=== PATIENT | female | born 1985 | race Caucasian/White ===

== ENCOUNTER 2024-03-01 17:27 | Observation (INO) | payer OTHER ==
[2024-03-01] MEDS ORDERED: HEPARIN SODIUM 1,000 UN/ML (10ML VL) IV PRN (17:51)
--- NOTE | 2024-03-01 17:57 | ED ---
General Adult HPI - General Chief complaint: Chest Pain Stated complaint: chest pain Time Seen by Provider: 03/01/24 17:30 Source: patient, EMS Mode of arrival: EMS Limitations: no limitations - History of Present Illness Initial comments: Dictation was produced using [employer] dictation software. please excuse any grammatical, word or spelling errors. Chief Complaint: 38-year-old incarcerated female presents to the [facility] part for chest pressure History of Present Illness: Patient 38-year-old female no significant comorbidities presents to the emergency department 2 to 3 days of chest pressure. She is incarcerated was brought to the emergency department by . Patient states she has what she describes as a strangulated chest sensation. She states that symptoms radiate down both arms. She does complain of diaphoresis and nausea. Patient does report family history of heart conditions in her grandma. The ROS documented in this emergency department record has been reviewed and confirmed by me. Those systems with pertinent positive or negative responses have been documented in the HPI. All other systems are other negative and/or noncontributory. - Related Data Home Medications Medication Instructions Recorded Confirmed Albuterol Nebulized [Ventolin 2.5 mg INHALATION RT-BID PRN 03/01/24 03/01/24 Nebulized] hydroCHLOROthiazide [Hydrodiuril] 25 mg PO DAILY 03/01/24 03/01/24 lisinopriL [Zestril] 10 mg PO DAILY 03/01/24 03/01/24 Allergies Allergy/AdvReac Type Severity Reaction Status Date / Time pregabalin [From Lyrica] AdvReac CHEST Verified 03/01/24 18:06 TIGHTENING EXCEDRIN AdvReac CHEST Uncoded 03/01/24 18:06 TIGHTENING Review of Systems ROS Statement: Those systems with pertinent positive or pertinent negative responses have been documented in the HPI. ROS Other: All systems not noted in ROS Statement are negative. General Exam - General Exam Comments Initial Comments: PHYSICAL EXAM: General Impression: Alert and oriented x3, distress secondary to chest pressure HEENT: Normocephalic atraumatic, extra-ocular movements intact, pupils equal and reactive to light bilaterally, mucous membranes moist. Cardiovascular: Heart regular rate and rhythm Chest: Able to complete full sentences, no retractions, no tachypnea Abdomen: abdomen soft, non-tender, non-distended, no organomegaly Musculoskeletal: Pulses present and equal in all extremities, no peripheral edema Motor: no focal deficits noted Neurological: CN II-XII grossly intact, no focal motor or sensory deficits noted Skin: Intact with no visualized rashes Psych: Normal affect and mood Limitations: no limitations Course Vital Signs 03/01/24 03/01/24 03/01/24 17:29 18:40 19:00 Temperature 98.7 F Pulse Rate 95 88 94 Respiratory 16 16 17 Rate Blood Pressure 137/94 166/110 158/108 O2 Sat by Pulse 96 98 96 Oximetry 03/01/24 19:30 Temperature Pulse Rate 94 Respiratory 15 Rate Blood Pressure 144/95 O2 Sat by Pulse 95 Oximetry - Reevaluation(s) Reevaluation #1: 03/01/24 17:57 My EKG interpretation: Ventricular rate 102, sinus tachycardia,. 130, cures 1 1, QTc 402. No OK prolongation, no QTC prolongation. ST depressions diffusely and high lateral leads, inferior leads and lateral precordial leads. There is to be subtle ST elevations in anterior precordial leads. Overall this EKG is nonspecific but highly suspicious for ischemia. Not obvious for ST segment elevation IA. Case discussed with Dr. Milian at 5:55 PM. He wanted to evaluate the EKG prior to any further recommendations. Reevaluation #2: 03/01/24 18:00 Received a call from Dr. Milian at 5:59 PM. He did review the EKG. He was able to compare today's EKG with EKG done from [facility] showing no dynamic changes. At this point did not recommend Blade Aligner activation. Recommended laboratory evaluation medical management Medical Decision Making - Medical Decision Making Was pt. sent in by a medical professional or institution (, PA, BRIM BUSTER, urgent care, hospital, or fci...) When possible be specific @ -No Did you speak to anyone other than the patient for history (EMS, parent, family, police, friend...)? What history was obtained from this source @ -No Did you review nursing and triage notes (agree or disagree)? Why? @ -I reviewed and agree with nursing and triage notes Were old charts reviewed (outside hosp., previous admission, EMS record, old EKG, old radiological studies, urgent care reports/EKG's, fci records)? Report findings @ -No old charts were reviewed Differential Diagnosis (chest pain, altered mental status, abdominal pain women, abdominal pain men, vaginal bleeding, musculoskeletal, weakness, fever, dyspnea, syncope, headache, dizziness, GI bleed, back pain, seizure, CVA, palpatations, mental health)? @ -Differential Chest Pain: Stable Angina, Unstable Angina, STEMI, NSTEMI Aortic Dissection, Pneumothorax, Musculoskeletal, Esophageal Spasm GERD, Cholecystitis, Pancreatitis, Zoster, this is not meant to be an all-inclusive list. EKG interpreted by me (3pts min.). @ -See above X-rays interpreted by me (1pt min.). @ -X-ray shows no acute processes CT interpreted by me (1pt min.). @ -None done U/S interpreted by me (1pt. min.). @ -None done What testing was considered but not performed or refused? (CT, X-rays, U/S, labs)? Why? @ -None What meds were considered but not given or refused? Why? @ -None Was smoking cessation discussed for >3mins.? @ -No Were there social determinants of health that impacted care today? How? (Homelessness, low income, unemployed, alcoholism, drug addiction, transportation, low edu. Level, literacy, decrease access to med. care, [facility], rehab)? @ -No Was there de-escalation of care discussed even if they declined (Discuss DNR or withdrawal of care, Hospice)? DNR status @ -No What co-morbidities impacted this encounter? (DM, HTN, Smoking, COPD, CAD, Cancer, CVA, ARF, Chemo, Hep., AIDS, mental health diagnosis, sleep apnea, morbid obesity)? @ -None Was patient admitted / discharged? Hospital course, mention meds given and route, prescriptions, significant lab abnormalities, going to OR and other pertinent info. @ -38-year-old female with symptoms of acute coronary syndrome. Vital signs upon arrival are within acceptable limits. EKG initially was concerning for ischemia however EKG was sent to cardiology for evaluation they did have a comparison EKG which showed no changes. Laboratory evaluation obtained. Troponin is negative. Patient will be admitted observation with cardiology consultation cardiac monitoring. Did you discuss the management of the patient with other professionals (professionals i.e. , PA, BRIM BUSTER, lab, RT, psych nurse, social services specialist, disposal worker, teacher, communications officer, family service caseworker)? Give summary @ -See above. also discussed with hospitalist for admission Was critical care preformed (if so, how long)? @ -No Undiagnosed new problem with uncertain prognosis? @ -No Drug Therapy requiring intensive monitoring for toxicity (Heparin, Nitro, Insulin, Cardizem)? @ -No Were any procedures done? @ -No Diagnosis/symptom? Acute, or Chronic, or Acute on Chronic? Uncomplicated (wi thout systemic symptoms) or Complicated (systemic symptoms)? @ -Acute coronary syndrome Side effects of treatment? @ -No Exacerbation, Progression, or Severe Exacerbation? @ -No Poses a threat to life or bodily function? How? (Chest pain, USA, IA, pneumonia, PE, COPD, DKA, ARF, appy, cholecystitis, CVA, Diverticulitis, Homicidal, Suicidal, threat to staff... and all critical care pts) @ -yes - Lab Data Result diagrams: 03/01/24 17:56 03/01/24 17:56 Lab Results 03/01/24 03/01/24 03/01/24 Range/Units 17:56 17:56 17:56 WBC 7.0 (3.8-10.6) k/uL RBC 5.34 (3.80-5.40) m/uL Hgb 16.4 H (11.4-16.0) gm/dL Hct 49.5 H (34.0-46.0) % MCV 92.7 (80.0-100.0) fL MCH 30.7 (25.0-35.0) pg MCHC 33.1 (31.0-37.0) g/dL RDW 12.0 (11.5-15.5) % Plt Count 256 (150-450) k/uL MPV 9.1 Neutrophils % 51 % Lymphocytes % 39 % Monocytes % 6 % Eosinophils % 2 % Basophils % 0 % Neutrophils # 3.6 (1.3-7.7) k/uL Lymphocytes # 2.8 (1.0-4.8) k/uL Monocytes # 0.4 (0-1.0) k/uL Eosinophils # 0.1 (0-0.7) k/uL Basophils # 0.0 (0-0.2) k/uL PT 10.6 (10.0-12.5) sec INR 1.0 (<1.2) APTT 23.7 (22.0-30.0) sec D-Dimer 0.22 (<0.60) mg/L FEU Sodium 138 (137-145) mmol/L Potassium 4.1 (3.5-5.1) mmol/L Chloride 105 (98-107) mmol/L Carbon Dioxide 24 (22-30) mmol/L Anion Gap 9 mmol/L BUN 18 H (7-17) mg/dL Creatinine 0.66 (0.52-1.04) mg/dL Est GFR (CKD-EPI)AfAm >90 (>60 ml/min/1.73 sqM) Est GFR (CKD-EPI)NonAf >90 (>60 ml/min/1.73 sqM) Glucose 96 (74-99) mg/dL Calcium 9.4 (8.4-10.2) mg/dL Magnesium 1.9 (1.6-2.3) mg/dL Total Bilirubin 0.6 (0.2-1.3) mg/dL AST 26 (14-36) U/L ALT 33 (4-34) U/L Alkaline Phosphatase 74 (38-126) U/L Troponin I (0.000-0.034) ng/mL Total Protein 7.6 (6.3-8.2) g/dL Albumin 4.7 (3.5-5.0) g/dL 03/01/24 Range/Units 17:56 WBC (3.8-10.6) k/uL RBC (3.80-5.40) m/uL Hgb (11.4-16.0) gm/dL Hct (34.0-46.0) % MCV (80.0-100.0) fL MCH (25.0-35.0) pg MCHC (31.0-37.0) g/dL RDW (11.5-15.5) % Plt Count (150-450) k/uL MPV Neutrophils % % Lymphocytes % % Monocytes % % Eosinophils % % Basophils % % Neutrophils # (1.3-7.7) k/uL Lymphocytes # (1.0-4.8) k/uL Monocytes # (0-1.0) k/uL Eosinophils # (0-0.7) k/uL Basophils # (0-0.2) k/uL PT (10.0-12.5) sec INR (<1.2) APTT (22.0-30.0) sec D-Dimer (<0.60) mg/L FEU Sodium (137-145) mmol/L Potassium (3.5-5.1) mmol/L Chloride (98-107) mmol/L Carbon Dioxide (22-30) mmol/L Anion Gap mmol/L BUN (7-17) mg/dL Creatinine (0.52-1.04) mg/dL Est GFR (CKD-EPI)AfAm (>60 ml/min/1.73 sqM) Est GFR (CKD-EPI)NonAf (>60 ml/min/1.73 sqM) Glucose (74-99) mg/dL Calcium (8.4-10.2) mg/dL Magnesium (1.6-2.3) mg/dL Total Bilirubin (0.2-1.3) mg/dL AST (14-36) U/L ALT (4-34) U/L Alkaline Phosphatase (38-126) U/L Troponin I <0.012 (0.000-0.034) ng/mL Total Protein (6.3-8.2) g/dL Albumin (3.5-5.0) g/dL Disposition Clinical Impression: ACS (acute coronary syndrome) Disposition: ADMITTED IP TO THIS [facility] Condition: Fair Referrals: None,Stated [REFERRING] - 1-2 days Decision Time: 20:26
[2024-03-01 18:15] LABS: Basophils % (A) 0 %; Eosinophils # (A) 0.1 k/uL (0-0.7); Eosinophils % (A) 2 %; HCT 49.5 % (34.0-46.0); HGB 16.4 gm/dL (11.4-16.0); Lymphocytes # (A) 2.8 k/uL (1.0-4.8); Lymphocytes % (A) 39 %; MCH 30.7 pg (25.0-35.0); MCHC 33.1 g/dL (31.0-37.0); MCV 92.7 fL (80.0-100.0); Mean Platelet Volume 9.1; Monocytes # (A) 0.4 k/uL (0-1.0); Monocytes % (A) 6 %; Neutrophils # (A) 3.6 k/uL (1.3-7.7); Neutrophils % (A) 51 %; Platelet Count 256 k/uL (150-450); RBC 5.34 m/uL (3.80-5.40)
[2024-03-01 18:30] LABS: ALT 33 U/L (4-34); AST 26 U/L (14-36); African American GFR (CKD) >90 (>60 ml/min/1.73 sqM); Albumin 4.7 g/dL (3.5-5.0); Alkaline Phosphatase 74 U/L (38-126); Anion Gap 9 mmol/L; Blood Urea Nitrogen 18 mg/dL (7-17); Calcium 9.4 mg/dL (8.4-10.2); Carbon Dioxide 24 mmol/L (22-30); Chloride 105 mmol/L (98-107); Glucose 96 mg/dL (74-99); Magnesium 1.9 mg/dL (1.6-2.3); Non-African American GFR(CKD) >90 (>60 ml/min/1.73 sqM); Potassium 4.1 mmol/L (3.5-5.1); Sodium 138 mmol/L (137-145); Total Bilirubin 0.6 mg/dL (0.2-1.3); Total Protein 7.6 g/dL (6.3-8.2)
--- NOTE | 2024-03-01 18:54 | XR ---
EXAMINATION TYPE: XR chest 2V DATE OF EXAM: 03/01/2024 6:42 PM COMPARISON: Chest radiographs from 11/05/2019 CLINICAL INDICATION: Female, 38 years old with history of Chest Pain; TECHNIQUE: XR chest 2V Frontal and lateral views of the chest. FINDINGS: Lungs/Pleura: There is no evidence of pleural effusion, focal consolidation, or pneumothorax. Pulmonary vascularity: Unremarkable. Heart/mediastinum: Cardiomediastinal silhouette is unremarkable. Musculoskeletal: No acute osseous pathology. Midline sternotomy wires are noted. IMPRESSION: No acute cardiopulmonary disease/process. [facility], , 03/01/2024 6:52 PM
[2024-03-01] MEDS: NITROGLYCERIN OINT 1 INCH/GM PACKET TOPICAL STA (18:56)
[2024-03-01 19:03] LABS: Partial Thromboplastin Time 23.7 sec (22.0-30.0); Prothrombin Time 10.6 sec (10.0-12.5)
[2024-03-01] MEDS: HEPARIN SODIUM 1,000 UN/ML (10ML VL) IV ONE (19:08)
[2024-03-01] MEDS: HEPARIN SOD,PORK IN 0.45% NACL 25,000 UNIT in 0.45% NACL 1 250ML.BAG IV SCH (19:08)
[2024-03-01] MEDS ORDERED: NITROGLYCERIN SL TABS 0.4 MG TAB SUBLINGUAL PRN (20:24)
[2024-03-02] MEDS: ONDANSETRON 4 MG/2 ML VIAL IVP PRN (09:11)
[2024-03-02] MEDS: ASPIRIN 325 MG TAB PO SCH (09:12)
[2024-03-02] MEDS ORDERED: ONDANSETRON 4 MG/2 ML VIAL IVP PRN (09:16)
[2024-03-02] MEDS ORDERED: ALBUTEROL NEBULIZED 2.5 MG/3 ML INHALATION PRN (09:19)
--- NOTE | 2024-03-02 10:07 | P.CRDCN ---
History of Present Illness Consult date: 03/02/24 Consult reason: chest pain History of present illness: This is a 38-year-old female with no previous cardiac history. 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 We have been asked to evaluate the patient for chest pain. Patient is here as an inmate from the [facility] with Sheriff crockett at the bedside. Patient complains of low rib pain bilaterally that has been going on for a few months on and off. She feels that stress makes it worse. She does not think it is related to activity. She does not think it feels like a muscle strain. She does sometimes have some difficulty in breathing. She sometimes has lightheadedness. She has noted to have tenderness to the epigastric and right upper quadrant areas as well as lower rib areas. Patient has been started on a heparin drip. - EKG: Sinus rhythm with LVH, nonspecific ST changes - Chest x-ray: No acute process - Laboratory studies: WBC 7, hemoglobin 16.4. D-dimer 0.22. Troponin negative x 4. Electrolytes normal. BUN 18 creatinine 0.66. Magnesium 1.9. - Home cardiac medications: Lisinopril 10 mg daily, hydrochlorothiazide 25 mg daily Review Of Systems: At the time of my exam: CONSTITUTIONAL: Denies fever or chills. HEENT: Denies blurred vision, vision changes, or eye pain. Denies hemoptysis CARDIOVASCULAR: Denies chest pain. Denies orthopnea. Denies PND. Denies palpitations RESPIRATORY: Denies shortness of breath. GASTROINTESTINAL: Reports abdominal pain. Denies nausea or vomiting. HEMATOLOGIC: Denies bleeding disorders. GENITOURINARY: Denies any blood in urine. SKIN: Denies puritis. Denies rash. Physical examination: Gen: This is a 38-year-old female in no acute distress. VS: reviewed HEENT: Head is atraumatic, normocephalic. Pupils equal, round. Sclerae is anicteric. NECK: Supple. No JVD. LUNGS: Clear to auscultation. No wheezes or rhonchi. No intercostal retraction s. HEART: Regular rate and rhythm. No murmur. ABDOMEN: Right upper quadrant and epigastric tenderness. Soft. EXTREMITIES: No pedal edema. No calf tenderness. NEUROLOGICAL: Patient is awake, alert and oriented x3. 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 Discontinue heparin drip Obtain 2-D echocardiogram and Doppler study to assess cardiac structure and function Smoking cessation. Patient will be provided the [employer] quit line information at discharge. Advised attending to evaluate abdominal pain and if this workup is negative, may consider stress test Thank you kindly for this consultation. Nurse practitioner note has been reviewed, I agree with documented findings and plan of care. Patient was seen and examined. 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 Unsure if she has a leaky valve. History of Any Multi-Drug Resistant Organisms: None Reported Past Surgical History: Appendectomy, Section, Cholecystectomy Additional Past Surgical History / Comment(s): CABG, Left knee surgeries, endometrosis surgery Past Anesthesia/Blood Transfusion Reactions: No Reported Reaction Smoking Status: Current every day smoker - Past Family History Mother Additional Family Medical History / Comment(s): Grandmother had a pacemaker Father Family Medical History: Cancer Additional Family Medical History / Comment(s): colon cancer, Breast cancer runs on his side of the family. Medications and Allergies Home Medications Medication Instructions Recorded Confirmed Type Albuterol Nebulized [Ventolin 2.5 mg INHALATION RT-BID PRN 03/01/24 03/01/24 History Nebulized] hydroCHLOROthiazide [Hydrodiuril] 25 mg PO DAILY 03/01/24 03/01/24 History lisinopriL [Zestril] 10 mg PO DAILY 03/01/24 03/01/24 History Allergies Allergy/AdvReac Type Severity Reaction Status Date / Time pregabalin [From Lyrica] AdvReac CHEST Verified 03/01/24 18:06 TIGHTENING EXCEDRIN AdvReac CHEST Uncoded 03/01/24 18:06 TIGHTENING Physical Exam Vitals: Vital Signs Temp Pulse Pulse Resp BP BP Pulse Ox 03/02/24 02:00 98.2 F 95 18 121/81 98 03/02/24 01:52 79 18 03/01/24 23:02 98.2 F 79 18 143/87 99 03/01/24 22:46 98.3 F 96 16 120/91 96 03/01/24 21:00 82 18 126/88 95 03/01/24 20:30 87 18 138/73 95 03/01/24 19:30 94 15 144/95 95 03/01/24 19:00 94 17 158/108 96 03/01/24 18:40 88 16 166/110 98 03/01/24 17:29 98.7 F 95 16 137/94 96 Intake and Output 03/01/24 03/02/24 03/02/24 22:59 06:59 14:59 Intake Total 48.296 Balance 48.296 Intake: Intake, IV Titration 48.296 Amount Heparin Sod,Pork in 0.45% 48.296 NaCl 25,000 unit In 0.45 % NaCl 1 250ml.bag @ 12 UNITS/KG/HR 7.566 mls/hr IV .Q24H [facility] Rx#: [id number] Other: # Voids 1 2 Weight 63.049 kg Results 03/01/24 17:56 03/01/24 17:56 Cardiac Enzymes 03/01/24 03/01/24 03/01/24 Range/Units 17:56 17:56 20:45 AST 26 (14-36) U/L Troponin I <0.012 <0.012 (0.000-0.034) ng/mL 03/02/24 Range/Units 00:56 AST (14-36) U/L Troponin I <0.012 (0.000-0.034) ng/mL Coagulation 03/01/24 03/02/24 Range/Units 17:56 00:56 PT 10.6 (10.0-12.5) sec APTT 23.7 45.8 H (22.0-30.0) sec CBC 03/01/24 Range/Units 17:56 WBC 7.0 (3.8-10.6) k/uL RBC 5.34 (3.80-5.40) m/uL Hgb 16.4 H (11.4-16.0) gm/dL Hct 49.5 H (34.0-46.0) % Plt Count 256 (150-450) k/uL Comprehensive Metabolic Panel 03/01/24 Range/Units 17:56 Sodium 138 (137-145) mmol/L Potassium 4.1 (3.5-5.1) mmol/L Chloride 105 (98-107) mmol/L Carbon Dioxide 24 (22-30) mmol/L BUN 18 H (7-17) mg/dL Creatinine 0.66 (0.52-1.04) mg/dL Glucose 96 (74-99) mg/dL Calcium 9.4 (8.4-10.2) mg/dL AST 26 (14-36) U/L ALT 33 (4-34) U/L Alkaline Phosphatase 74 (38-126) U/L Total Protein 7.6 (6.3-8.2) g/dL Albumin 4.7 (3.5-5.0) g/dL Current Medications Generic Name Dose Route Start Last Admin Trade Name Freq PRN Reason Stop Dose Admin Aspirin 325 mg 03/02/24 09:00 Aspirin 325 Mg Tab PO DAILY [facility] Heparin Sodium (Porcine) 0 unit 03/01/24 17:51 Heparin Sodium 1,000 Un/Ml (10ml Vl) IV PER PROTOCOL PRN Low PTT Protocol Heparin Sodium/Sodium Chloride 250 mls @ 7.566 mls/hr 03/01/24 18:00 03/02/24 01:31 25,000 unit/ Sodium Chloride IV 12 units/kg/hr .Q24H [facility] 7.566 mls/hr Titration Protocol 12 UNITS/KG/HR Nitroglycerin 0.4 mg 03/01/24 20:24 Nitroglycerin Sl Tabs 0.4 Mg Tab SUBLINGUAL Q5M PRN Chest Pain Intake and Output 03/01/24 03/02/24 03/02/24 22:59 06:59 14:59 Intake Total 48.296 Balance 48.296 Intake: Intake, IV Titration 48.296 Amount Heparin Sod,Pork in 0.45% 48.296 NaCl 25,000 unit In 0.45 % NaCl 1 250ml.bag @ 12 UNITS/KG/HR 7.566 mls/hr IV .Q24H [facility] Rx#: [id number] Other: # Voids 1 2 Weight 63.049 kg 03/01/24 17:56 03/01/24 17:56
[2024-03-02] MEDS: lisinopriL 10 MG TAB PO SCH (10:09)
[2024-03-02] MEDS: PANTOPRAZOLE 40 MG/10 ML VIAL IVP SCH (10:09)
--- NOTE | 2024-03-02 11:21 | P.HPIM ---
History of Present Illness H&P Date: 03/02/24 History of present illness: This is a 38-year-old female with past medical history significant for hy pertension, asthma, CABG due to tumor on the back of the heart, tobacco use, history of cholecystectomy who presented with a complaint of chest pain, epigastric pain radiating bilaterally to the back. Patient is not inmate from [facility] with civil division commander deputy sheriff at the bedside. Patient stated that she was having bilateral lower rib pain radiating bilaterally to the back going on for few months on and off, stress making it worse. Patient complained of some nausea, denied any vomiting. Patient denied any aggravating or relieving factor, denied any association with food intake. Patient reported sometimes she feels short of breath and lightheaded. Vital stable EKG showed sinus rhythm with LVH, nonspecific ST changes Chest x-ray negative for acute process WBC 7, hemoglobin 16.4, D-dimer 0.22, troponin negative x 4. Electrolytes normal. BUN 18, creatinine 0.66. Magnesium 1.6 Home medications lisinopril and hydrochlorothiazide REVIEW OF SYSTEMS: CONSTITUTIONAL: No fever, no malaise, no fatigue. HEENT: No recent visual problems or hearing problems. Denied any sore throat. CARDIOVASCULAR: No chest pain, orthopnea, PND, no palpitations, no syncope. PULMONARY: No shortness of breath, no cough, no hemoptysis. GASTROINTESTINAL: No diarrhea, no nausea, no vomiting, no abdominal pain. NEUROLOGICAL: No headaches, no weakness, no numbness. HEMATOLOGICAL: Denies any bleeding or petechiae. GENITOURINARY: Denies any burning micturition, frequency, or urgency. MUSCULOSKELETAL/RHEUMATOLOGICAL: Denies any joint pain, swelling, or any muscle pain. ENDOCRINE: Denies any polyuria or polydipsia. The rest of the 14-point review of systems is negative. PHYSICAL EXAMINATION: GENERAL: The patient is A&O x3, NAD HEENT: EOMI, Sclerae anicteric, Moist Mucous membranes Neck: Supple, Non tender, No JVD PULMONARY: Equal breath souds B/L, No wheezing, No crackles. CARDIOVASCULAR: S1, S2 present. No murmurs, rubs, or gallops. ABDOMEN: Soft, nontender, nondistended, normoactive bowel sounds. No guarding or rebound tenderness. MUSCULOSKELETAL: No edema, No cyanosis. No clubbing. Normal ROM. Intact peripheral pulses. NEUROLOGICAL: CN 2-12 grossly intact. No FND Assessment and plan: Atypical chest pain: Epigastric abdominal pain: Hypertension History of tumor removed from behind her heart at age of 20 Tobacco use and dependence: Plan: Cardiology consulted, recommended echocardiogram, atypical chest pain discontinue heparin drip, continue home meds Encourage smoking cessation Echocardiogram pending Will obtain CTA chest and CT abdomen pelvis for further evaluation Check UA Repeat LFTs and lipase. Protonix DVT prophylaxis Substance heparin Monitor vital signs and labs Labs and medication were reviewed. Continue same treatment. Further recommendations as per clinical course of the patient Dictation was produced using [employer] dictation software. please excuse any gramma tical, word or spelling errors. 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 Unsure if she has a leaky valve. History of Any Multi-Drug Resistant Organisms: None Reported Past Surgical History: Appendectomy, Section, Cholecystectomy Additional Past Surgical History / Comment(s): CABG, Left knee surgeries, endometrosis surgery Past Anesthesia/Blood Transfusion Reactions: No Reported Reaction Smoking Status: Current every day smoker - Past Family History Mother Additional Family Medical History / Comment(s): Grandmother had a pacemaker Father Family Medical History: Cancer Additional Family Medical History / Comment(s): colon cancer, Breast cancer runs on his side of the family. Medications and Allergies Home Medications Medication Instructions Recorded Confirmed Type Albuterol Nebulized [Ventolin 2.5 mg INHALATION RT-BID PRN 03/01/24 03/01/24 History Nebulized] hydroCHLOROthiazide [Hydrodiuril] 25 mg PO DAILY 03/01/24 03/01/24 History lisinopriL [Zestril] 10 mg PO DAILY 03/01/24 03/01/24 History Allergies Allergy/AdvReac Type Severity Reaction Status Date / Time pregabalin [From Lyrica] AdvReac CHEST Verified 03/01/24 18:06 TIGHTENING EXCEDRIN AdvReac CHEST Uncoded 03/01/24 18:06 TIGHTENING Physical Exam Vitals: Vital Signs Temp Pulse Pulse Resp BP BP Pulse Ox 03/02/24 08:00 18 03/02/24 07:00 98.1 F 65 18 111/70 98 03/02/24 02:00 98.2 F 95 18 121/81 98 03/02/24 01:52 79 18 03/01/24 23:02 98.2 F 79 18 143/87 99 03/01/24 22:46 98.3 F 96 16 120/91 96 03/01/24 21:00 82 18 126/88 95 03/01/24 20:30 87 18 138/73 95 03/01/24 19:30 94 15 144/95 95 03/01/24 19:00 94 17 158/108 96 03/01/24 18:40 88 16 166/110 98 03/01/24 17:29 98.7 F 95 16 137/94 96 Intake and Output 03/01/24 03/02/24 03/02/24 22:59 06:59 14:59 Intake Total 48.296 63.554 Balance 48.296 63.554 Intake: Intake, IV Titration 48.296 63.554 Amount Heparin Sod,Pork in 0.45% 48.296 63.554 NaCl 25,000 unit In 0.45 % NaCl 1 250ml.bag @ 12 UNITS/KG/HR 7.566 mls/hr IV .Q24H [facility] Rx#: [id number] Other: Voiding Method Toilet # Voids 1 2 Weight 63.049 kg Results CBC & Chem 7: 03/01/24 17:56 03/01/24 17:56 Labs: Abnormal Lab Results - Last 24 Hours (Table) 03/01/24 03/01/24 03/02/24 Range/Units 17:56 17:56 00:56 Hgb 16.4 H (11.4-16.0) gm/dL Hct 49.5 H (34.0-46.0) % APTT 45.8 H (22.0-30.0) sec BUN 18 H (7-17) mg/dL Thrombosis Risk Factor Assmnt - Choose All That Apply Any of the Below Risk Factors Present?: No Other Risk Factors: No Other congenital or acquired thrombophilia - If yes, enter type in comment: No Thrombosis Risk Factor Assessment Level: Very Low Risk
[2024-03-02] MEDS: IOPAMIDOL CONTRAST (ORAL USE) VIAL PO PRN (11:42)
[2024-03-02 13:34] LABS: Chol/HDL Ratio 3.97 Ratio; LDL Cholesterol,Calculated 115.7 mg/dL (0.0-131.0)
--- NOTE | 2024-03-02 14:43 | CT ---
EXAMINATION TYPE: CT chest angio for PE CT DLP: 728.60 mGycm, Automated exposure control for dose reduction was used. DATE OF EXAM: 03/02/2024 2:37 PM COMPARISON: Chest radiograph 03/01/2024 CLINICAL INDICATION:Female, 38 years old with history of Chest pain; TECHNIQUE/CONTRAST: CTA scan of the thorax is performed with IV Contrast, patient injected with 100 mL of Isovue 300, pul monary embolism protocol. MIP images are created and reviewed. FINDINGS: Pulmonary Artery: There is no evidence for a filling defect within the pulmonary vasculature to sugge st acute pulmonary embolism. The pulmonary artery is of normal size. Lungs/Pleura: No evidence of focal consolidation, pleural effusion or pneumothorax. Minimal dependent bilateral lower lobe subsegmental atelectasis. No suspicious pulmonary nodule or mass. Airway: Large airways are patent. Heart: Mildly prominent size. Thick wall left ventricle. No pericardial effusion. Vasculature: No evidence of aortic aneurysm. Mediastinum: No evidence of adenopathy. Musculoskeletal: No acute osseous abnormalities. Median sternotomy wires. Soft Tissues: Unremarkable. Lower neck: No significant findings. Upper Abdomen: Please refer to dedicated CT abdomen and pelvis of same day for findings. IMPRESSION: 1. No evidence of pulmonary embolism or acute thoracic process. 2. Left ventricular hypertrophy. [facility], , 03/02/2024 2:41 PM
--- NOTE | 2024-03-02 14:50 | CT ---
EXAMINATION TYPE: CT abdomen pelvis w con CT DLP: 728.60 mGycm, Automated exposure control for dose reduction was used. DATE OF EXAM: 03/02/2024 2:37 PM COMPARISON: CTA chest 04/01/2024 CLINICAL INDICATION:Female, 38 years old with history of Epigastric pain and tenderness.; TECHNIQUE: Standard CT of the abdomen and pelvis following the administration of 100 cc of Isovue 3 00 IV contrast material and oral contrast. Coronal and sagittal reformats were performed. FINDINGS: LOWER CHEST: Please see dedicated CTA chest for findings ABDOMEN LIVER: Peripheral right hepatic lobe punctate calcific granulomas. GALLBLADDER AND BILE DUCTS: The gallbladder is surgically absent. No biliary duct dilatation. PANCREAS: Unremarkable. SPLEEN: Unremarkable. ADRENAL GLANDS: Unremarkable. KIDNEYS AND URETERS: No evidence of hydronephrosis or renal calculus. The kidneys enhance symmetrical ly. Contrast is demonstrated within both collecting systems on the delayed phase. Subcentimeter hypod ense left renal probable cyst. PELVIS BLADDER: Unremarkable REPRODUCTIVE: Unremarkable anteverted uterus. Debris and fluid identified within the vaginal canal. ABDOMEN & PELVIS STOMACH AND BOWEL: Stomach and duodenum are unremarkable. Enteric contrast reaches the descending col on. Mild colonic stool burden. No focal bowel wall thickening or surrounding inflammatory changes. Th e appendix is not definitively visualized however there is no significant inflammatory changes within the right lower quadrant. Redundant sigmoid colon. No evidence of bowel obstruction. PERITONEUM: No evidence of pneumoperitoneum or free fluid. VASCULATURE: No evidence of aortic aneurysm. MUSCULOSKELETAL: No acute osseous abnormalities. Sacralization of the L5 vertebral body with pseudoar ticulation of the right L5 transverse process with the sacrum. LYMPH NODES: No evidence for lymphadenopathy. SOFT TISSUE/ABDOMINAL WALL: Tiny fat filled umbilical hernia. IMPRESSION: Fluid and debris identified within the vaginal canal otherwise no other evidence for acute process. [facility], , 03/02/2024 2:48 PM
[2024-03-02 15:40] LABS: ALT 28 U/L (8-44); AST 19 U/L (13-35); Albumin 4.1 g/dL (3.8-4.9); Albumin/Globulin Ratio 1.78 Ratio (1.60-3.17); Alkaline Phosphatase 70 U/L (41-126); BUN/Creat Ratio 27.43 Ratio (12.00-20.00); Blood Urea Nitrogen 19.2 mg/dL (9.0-27.0); Carbon Dioxide 17.4 mmol/L (21.6-31.8); Chloride 105 mmol/L (96-109); Globulin 2.3 g/dL (1.6-3.3); Glucose 85 mg/dL (70-110); Lipase 29 U/L (14-63); Potassium 3.9 mmol/L (3.5-5.5); Sodium 141 mmol/L (135-145); Total Bilirubin 0.2 mg/dL (0.3-1.2); Total Protein 6.4 g/dL (6.2-8.2)
[2024-03-02] MEDS: ACETAMINOPHEN TAB 500 MG TAB PO PRN (16:13)
--- NOTE | 2024-03-02 19:18 | CA ---
Transthoracic Echo Report Name: Doris Cordero Age: 38 Gender: F : 1985 Exam Date: 03/02/2024 14:58 Exam Location: [facility] Ht (in): 62 Wt (lb): 139 Ordering Physician: Deyanira Ramires Attending/Referring Phys: [id number], Keyla Medical Imaging Technician Holli French RDCS Procedure CPT: Indications: LVF Cardiac Hx: Technical Quality: Fair Contrast 1: Total Dose (mL): Contrast 2: Total Dose (mL): MEASUREMENTS (Male / Female) Normal Values 2D ECHO LV Diastolic Diameter PLAX 4.2 cm 4.2 - 5.9 / 3.9 - 5.3 cm LV Systolic Diameter PLAX 3.6 cm IVS Diastolic Thickness 1.3 cm 0.6 - 1.0 / 0.6 - 0.9 cm LVPW Diastolic Thickness 1.4 cm 0.6 - 1.0 / 0.6 - 0.9 cm LV Relative Wall Thickness 0.7 RV Internal Dim ED PLAX 2.4 cm LA Systolic Diameter LX 3.8 cm 3.0 - 4.0 / 2.7 - 3.8 cm LV Diastolic Volume MOD BP 50.8 cm??? 67 - 155 / 56 - 104 cm??? LV Systolic Volume MOD BP 36.9 cm??? 22 - 58 / 19 - 49 cm??? LV Ejection Fraction MOD BP 27.4 % >= 55 % LV Cardiac Index MOD BP 574.3 cm???/min???m??? LV Diastolic Volume MOD 4C 60.8 cm??? LV Systolic Volume MOD 4C 43.3 cm??? LV Ejection Fraction MOD 4C 28.7 % LV Cardiac Index MOD 4C 720.0 cm???/min???m??? LV Diastolic Length 4C 6.9 cm LV Systolic Length 4C 6.1 cm LV Diastolic Volume MOD 2C 42.1 cm??? LV Systolic Volume MOD 2C 26.9 cm??? LV Ejection Fraction MOD 2C 36.0 % LV Cardiac Index MOD 2C 624.0 cm???/min???m??? LV Diastolic Length 2C 6.7 cm LV Systolic Length 2C 6.3 cm LA Volume 31.6 cm??? 18 - 58 / 22 - 52 cm??? LA Volume Index 18.9 cm???/m??? 16 - 28 cm???/m??? M-MODE Aortic Root Diameter MM 2.7 cm LA Systolic Diameter MM 3.2 cm LA Ao Ratio MM 1.2 AV Cusp Separation MM 1.7 cm DOPPLER MV Area PHT 2.9 cm??? Mitral E Point Velocity 62.1 cm/s Mitral A Point Velocity 73.4 cm/s Mitral E to A Ratio 0.8 MV Deceleration Time 261.2 ms TR Peak Velocity 201.4 cm/s TR Peak Gradient 16.2 mmHg Right Ventricular Systolic Press 20.5 mmHg FINDINGS Left Ventricle Left ventricular ejection fraction is estimated at 35-40%. Moderately increased septal wall thickness. Moderately increased posterior wall thickness. Left ventricular cavity size normal. Moderately reduced global left ventricular systolic function. Right Ventricle Normal right ventricular size and function. Right ventricular systolic pressure within normal limits. Right Atrium Normal right atrial size. Left Atrium Mild left atrial dilatation. Mitral Valve Structurally normal mitral valve. Trace mitral regurgitation. No mitral stenosis. Aortic Valve Trileaflet aortic valve. No aortic valve stenosis or regurgitation. Tricuspid Valve Structurally normal tricuspid valve. Trace to mild tricuspid regurgitation. No tricuspid stenosis. Pulmonic Valve Structurally normal pulmonic valve. No pulmonic stenosis. Trace pulmonic regurgitation. Pericardium No pericardial or pleural effusion. Aorta Normal size aortic root and proximal ascending aorta. CONCLUSIONS Dilated LV with impaired systolic function and EF between 35 to 40% and left ventricular hypertrophy Normal right ventricular dimension and systolic function Normal pulmonary artery systolic pressure No significant valvular abnormalities Normal ascending aorta Trace pericardial effusion Previewed by: Dr. Mk Whalen MD (Electronically Signed) Final Date: 02 March 2024 19:17
[2024-03-02] MEDS ORDERED: HEPARIN SODIUM,PORCINE 5,000 UNIT/ML 1 ML VIAL SQ SCH (21:00)
[2024-03-03] MEDS: ASPIRIN 81 MG PO SCH (09:14)
[2024-03-03 09:51] LABS: Basophils # (A) 0.04 X 10*3/uL (0.00-0.10); Basophils % (A) 0.6 %; Eosinophils % (A) 3.1 %; HCT 44.9 % (37.2-46.3); HGB 14.5 g/dL (12.0-15.0); Lymphocytes # (A) 3.05 X 10*3/uL (0.90-5.00); Lymphocytes % (A) 47.1 %; MCH 30.4 pg (27.0-32.0); MCHC 32.3 g/dL (32.0-37.0); MCV 94.1 FL (80.0-97.0); Mean Platelet Volume 12.4 FL (9.5-12.2); Monocytes # (A) 0.48 X 10*3/uL (0.20-1.00); Monocytes % (A) 7.4 %; NRBC Per 100 WBC 0 X 10*3/uL (0.00-0.01); Neutrophils % (A) 41.6 %; Platelet Count 234 X 10*3/uL (140-440); RBC 4.77 X 10*6/uL (4.10-5.20); RDW 12.4 % (11.5-14.5); WBC 6.48 X 10*3/uL (4.50-10.00)
[2024-03-03 09:52] LABS: BUN/Creat Ratio 23.25 Ratio (12.00-20.00); Blood Urea Nitrogen 18.6 mg/dL (9.0-27.0); Glucose 83 mg/dL (70-110); Magnesium 2.2 mg/dL (1.5-2.4)
[2024-03-03 09:53] LABS: ALT 23 U/L (8-44); AST 16 U/L (13-35); Albumin 3.9 g/dL (3.8-4.9); Albumin/Globulin Ratio 1.77 Ratio (1.60-3.17); Alkaline Phosphatase 66 U/L (41-126); Calcium 8.8 mg/dL (8.7-10.3); Carbon Dioxide 22.8 mmol/L (21.6-31.8); Chloride 104 mmol/L (96-109); Globulin 2.2 g/dL (1.6-3.3); Sodium 139 mmol/L (135-145); Total Bilirubin 0.3 mg/dL (0.3-1.2); Total Protein 6.1 g/dL (6.2-8.2)
--- NOTE | 2024-03-03 13:59 | P.PN ---
Subjective Progress Note Date: 03/03/24 This is a 38-year-old female with no previous cardiac history. 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 We have been asked to evaluate the patient for chest pain. [facility] with [facility] crockett at the bedside. Patient complains of low rib pain bilaterally that has been going on for a few months on and off. She feels that stress makes it worse. She does not think it is related to activity. She does not think it feels like a muscle strain. She does sometimes have some difficulty in breathing. She sometimes has lightheadedness. She has noted to have tenderness to the epigastric and right upper quadrant areas as well as lower rib areas. Patient has been started on a heparin drip. - EKG: Sinus rhythm with LVH, nonspecific ST changes - Chest x-ray: No acute process - Laboratory studies: WBC 7, hemoglobin 16.4. D-dimer 0.22. Troponin negative x 4. Electrolytes normal. BUN 18 creatinine 0.66. Magnesium 1.9. - Home cardiac medications: Lisinopril 10 mg daily, hydrochlorothiazide 25 mg daily 03/03/2024 Patient was seen and examined resting comfortably in bed with at bedside. Echocardiogram done yesterday showed evidence of impaired LV systolic function with an ejection fraction of 35 to 40% and LVH. She did have cardiac workup many years ago in [place] but does not recall being told she had a weakened heart muscle. She does have a history of alcohol abuse quite heavily over the past 6 months as well as drug abuse, using crystal meth regularly. She continues to complain of bilateral lower rib and bilateral upper quadrant pain that is constant with no variation and some tenderness to palpation. Denies any shortness of breath and has no orthopnea or PND. She has no lower extremity edema. Labs show normal renal function. LDL 115.7. Objective - Vital Signs Vital signs: Vital Signs Temp 98.4 F 03/03/24 07:00 Pulse 70 03/03/24 07:00 Resp 15 03/03/24 07:00 BP 115/74 03/03/24 07:00 Pulse Ox 98 03/03/24 07:00 FiO2 Intake & Output 03/02/24 03/03/24 03/03/24 18:59 06:59 18:59 Intake Total 1143.554 960 Balance 1143.554 960 Intake: Intake, IV Titration 63.554 Amount Heparin Sod,Pork in 0.45% 63.554 NaCl 25,000 unit In 0.45 % NaCl 1 250ml.bag @ 12 UNITS/KG/HR 7.566 mls/hr IV .Q24H [facility] Rx#: [id number] Oral 1080 960 Other: Voiding Method Toilet Toilet Toilet # Voids 1 3 - Exam Gen: This is a 38-year-old female in no acute distress. VS: reviewed HEENT: Head is atraumatic, normocephalic. Pupils equal, round. Sclerae is anicteric. NECK: Supple. No JVD. LUNGS: Clear to auscultation. No wheezes or rhonchi. No intercostal retractions. HEART: Regular rate and rhythm. No murmur. ABDOMEN: Right upper quadrant and epigastric tenderness. Soft. EXTREMITIES: No pedal edema. No calf tenderness. NEUROLOGICAL: Patient is awake, alert and oriented x3. - Labs CBC & Chem 7: 03/03/24 04:56 03/03/24 04:56 Labs: Abnormal Lab Results - Last 24 Hours (Table) 03/02/24 03/03/24 03/03/24 Range/Units 06:54 04:56 04:56 MPV 12.4 H (9.5-12.2) FL Carbon Dioxide 17.4 L (21.6-31.8) mmol/L Anion Gap 18.60 H 12.20 H (4.00-12.00) mmol/L BUN/Creatinine Ratio 27.43 H 23.25 H (12.00-20.00) Ratio Total Bilirubin 0.2 L (0.3-1.2) mg/dL Total Protein 6.1 L (6.2-8.2) g/dL Assessment and Plan Assessment: #1 cardiomyopathy, likely nonischemic however ischemic component cannot be fully excluded at this time #2 atypical chest pain acute coronary syndrome rule out #3 hypertension 4 alcohol abuse #5 drug abuse #6 nicotine dependence Plan: From cardiology's perspective occasions were reviewed. We will decrease lisinopril, add low-dose beta-fernando and Farxiga. Depending on the trend of the blood pressure and renal function may consider adding Aldactone. We will add a statin. Patient will require workup to rule out underlying ischemia at some point. Discussed with the patient importance of nicotine, alcohol and drug use cessation. We will continue to follow the patient and provide further recommendations accordingly. BAR POINTER note has been reviewed, I agree with a documented findings and plan of care. Patient was seen and examined.
[2024-03-03] MEDS: METOPROLOL SUCCINATE (ER) 25 MG TAB.ER.24H PO SCH (14:17)
[2024-03-03] MEDS: DAPAGLIFLOZIN PROPANEDIOL 10 MG TABLET PO SCH (14:17)
--- NOTE | 2024-03-03 16:57 | P.GSCN ---
History of Present Illness Consult date: 03/03/24 History of present illness: Patient is a 38-year-old female with a past medical history of substance abuse, cardiac surgery in the past, appendectomy, currently incarcerated who presents with chest pain and shortness of breath as well as abdominal pain. Patient states that she has had worsening chest pain for the past 2 to 3 days. She states that this associated with shortness of breath. She states that she has also had intermittent abdominal pain. She admits to mild nausea but no emesis. No fevers or chills. No shortness of breath or chest pain. Denies any diarrhea. No sick contacts. Tolerating p.o. diet without any issue. No dysuria or hematuria. Upon presentation to [facility] emergency department a CT abdomen pelvis was obtained which showed no acute process. Debris was seen within the vaginal vault. 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 Unsure if she has a leaky valve. History of Any Multi-Drug Resistant Organisms: None Reported Past Surgical History: Appendectomy, Section, Cholecystectomy Additional Past Surgical History / Comment(s): CABG, Left knee surgeries, endom etrosis surgery Past Anesthesia/Blood Transfusion Reactions: No Reported Reaction Smoking Status: Current every day smoker - Past Family History Mother Additional Family Medical History / Comment(s): Grandmother had a pacemaker Father Family Medical History: Cancer Additional Family Medical History / Comment(s): colon cancer, Breast cancer runs on his side of the family. Medications and Allergies Home Medications Medication Instructions Recorded Confirmed Type Albuterol Nebulized [Ventolin 2.5 mg INHALATION RT-BID PRN 03/01/24 03/01/24 History Nebulized] hydroCHLOROthiazide [Hydrodiuril] 25 mg PO DAILY 03/01/24 03/01/24 History lisinopriL [Zestril] 10 mg PO DAILY 03/01/24 03/01/24 History Allergies Allergy/AdvReac Type Severity Reaction Status Date / Time pregabalin [From Lyrica] AdvReac CHEST Verified 03/01/24 18:06 TIGHTENING EXCEDRIN AdvReac CHEST Uncoded 03/01/24 18:06 TIGHTENING Surgical - Exam Vital Signs Temp Pulse Resp BP Pulse Ox 98.7 F 95 16 137/94 96 03/01/24 17:29 03/01/24 17:29 03/01/24 17:29 03/01/24 17:29 03/01/24 17:29 Gen: AxO, NAD Pulm: non-labored respirations Abd; soft, non-tender, non-distended. Extrem: no edema seen Results - Labs 03/03/24 04:56 03/03/24 04:56 Abnormal Lab Results - Last 24 Hours (Table) 03/03/24 03/03/24 03/03/24 Range/Units 04:56 04:56 04:56 MPV 12.4 H (9.5-12.2) FL Anion Gap 12.20 H (4.00-12.00) mmol/L BUN/Creatinine Ratio 23.25 H (12.00-20.00) Ratio NT-Pro-B Natriuret Pep 160 H (0-125) pg/mL Total Protein 6.1 L (6.2-8.2) g/dL Diabetes panel 03/03/24 Range/Units 04:56 Sodium 139 (135-145) mmol/L Potassium 4.0 (3.5-5.5) mmol/L Chloride 104 (96-109) mmol/L Carbon Dioxide 22.8 (21.6-31.8) mmol/L BUN 18.6 (9.0-27.0) mg/dL Creatinine 0.8 (0.6-1.5) mg/dL Glucose 83 (70-110) mg/dL Calcium 8.8 (8.7-10.3) mg/dL AST 16 (13-35) U/L ALT 23 (8-44) U/L Alkaline Phosphatase 66 (41-126) U/L Total Protein 6.1 L (6.2-8.2) g/dL Albumin 3.9 (3.8-4.9) g/dL Calcium panel 03/03/24 Range/Units 04:56 Calcium 8.8 (8.7-10.3) mg/dL Albumin 3.9 (3.8-4.9) g/dL Pituitary panel 03/03/24 Range/Units 04:56 Sodium 139 (135-145) mmol/L Potassium 4.0 (3.5-5.5) mmol/L Chloride 104 (96-109) mmol/L Carbon Dioxide 22.8 (21.6-31.8) mmol/L BUN 18.6 (9.0-27.0) mg/dL Creatinine 0.8 (0.6-1.5) mg/dL Glucose 83 (70-110) mg/dL Calcium 8.8 (8.7-10.3) mg/dL Adrenal panel 03/03/24 Range/Units 04:56 Sodium 139 (135-145) mmol/L Potassium 4.0 (3.5-5.5) mmol/L Chloride 104 (96-109) mmol/L Carbon Dioxide 22.8 (21.6-31.8) mmol/L BUN 18.6 (9.0-27.0) mg/dL Creatinine 0.8 (0.6-1.5) mg/dL Glucose 83 (70-110) mg/dL Calcium 8.8 (8.7-10.3) mg/dL Total Bilirubin 0.3 (0.3-1.2) mg/dL AST 16 (13-35) U/L ALT 23 (8-44) U/L Alkaline Phosphatase 66 (41-126) U/L Total Protein 6.1 L (6.2-8.2) g/dL Albumin 3.9 (3.8-4.9) g/dL Assessment and Plan Assessment: Patient is a 38-year-old female who presents with acute onset of chest pain and abdominal pain without cross-sectional imaging findings of acute intra-abdominal process Plan: -Diet as tolerated -IV fluid hydration -As needed pain and nausea control -Encourage ambulation -No acute surgical intervention -Care per brian Messer M.D. General Surgery
--- NOTE | 2024-03-03 17:23 | P.PN ---
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 [facility] is not inmate from [facility] with deputy sheriff civil division at the bedside. Patient stated that she was having bilateral lower rib pain radiating bilaterally to the back going on for few months on and off, stress making it worse. Patient complained of some nausea, denied any vomiting. Patient denied any aggravating or relieving factor, denied any association with food intake. Patient reported sometimes she feels short of breath and lightheaded. Vital stable EKG showed sinus rhythm with LVH, nonspecific ST changes Chest x-ray negative for acute process WBC 7, hemoglobin 16.4, D-dimer 0.22, troponin negative x 4. Electrolytes normal. BUN 18, creatinine 0.66. Magnesium 1.6 Home medications lisinopril and hydrochlorothiazide 03/03 Patient with mild upper abdominal pain on both sides below the rib cage. No nausea vomiting No chest pain or dyspnea Patient states currently has menstrual cycle going on, CT of the abdomen pelvis also showing fluid and debris's in the vagina canal most likely secondary to her menses Cardiology team added beta-fernando and lower the dose of lisinopril to 5 mg. Recommend ischemic workup at certain point Patient is from [facility], officer at bedside Objective - Vital Signs Vital signs: Vital Signs Temp 98.4 F 03/03/24 07:00 Pulse 70 03/03/24 07:00 Resp 15 03/03/24 07:00 BP 115/74 03/03/24 07:00 Pulse Ox 98 03/03/24 07:00 FiO2 Intake & Output 03/02/24 03/03/24 03/03/24 18:59 06:59 18:59 Intake Total 1143.554 960 Balance 1143.554 960 Intake: Intake, IV Titration 63.554 Amount Heparin Sod,Pork in 0.45% 63.554 NaCl 25,000 unit In 0.45 % NaCl 1 250ml.bag @ 12 UNITS/KG/HR 7.566 mls/hr IV .Q24H [facility] Rx#: [id number] Oral 1080 960 Other: Voiding Method Toilet Toilet Toilet # Voids 1 3 - Labs CBC & Chem 7: 03/03/24 04:56 03/03/24 04:56 Labs: Abnormal Lab Results - Last 24 Hours (Table) 03/02/24 03/03/24 03/03/24 Range/Units 06:54 04:56 04:56 MPV 12.4 H (9.5-12.2) FL Carbon Dioxide 17.4 L (21.6-31.8) mmol/L Anion Gap 18.60 H 12.20 H (4.00-12.00) mmol/L BUN/Creatinine Ratio 27.43 H 23.25 H (12.00-20.00) Ratio Total Bilirubin 0.2 L (0.3-1.2) mg/dL Total Protein 6.1 L (6.2-8.2) g/dL Assessment and Plan Assessment: Assessment and plan: Atypical chest pain: Rule out cardiac causes, improved Upper abdominal and epigastric abdominal pain: Hypertension 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
[2024-03-03] MEDS: ATORVASTATIN 20 MG TAB PO SCH (20:23)
--- NOTE | 2024-03-04 08:12 | P.PN ---
Progress Note - Text Progress Note Date: 03/04/24 No acute events overnight. VSS General-NAD CVS-RRR Lungs-NLB Abdomen-soft, NTND 38-year-old female who presented with acute onset of chest pain and abdominal pain without imaging findings of acute intra-abdominal process -Heart Healthy Diet -IV fluid hydration -PRN pain and nausea control -Encourage ambulation -No acute surgical intervention -Care per primary [facility] [phone]
[2024-03-04 09:53] LABS: BUN/Creat Ratio 19.22 Ratio (12.00-20.00); Blood Urea Nitrogen 17.3 mg/dL (9.0-27.0); Carbon Dioxide 24.4 mmol/L (21.6-31.8); Chloride 107 mmol/L (96-109); Glucose 90 mg/dL (70-110); Potassium 4.2 mmol/L (3.5-5.5); Sodium 141 mmol/L (135-145)
[2024-03-04] MEDS: lisinopriL 5 MG TAB PO SCH (10:15)
--- NOTE | 2024-03-04 12:17 | P.PN ---
Subjective Progress Note Date: 03/04/24 This is a 38-year-old female with no previous cardiac history. 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 We have been asked to evaluate the patient for chest pain. Patient is here as an inmate from the skilled nursing with chief deputy court clerk at the bedside. Patient complains of low rib pain bilaterally that has been going on for a few months on and off. She feels that stress makes it worse. She does not think it is related to activity. She does not think it feels like a muscle strain. She does sometimes have some difficulty in breathing. She sometimes has lightheadedness. She has noted to have tenderness to the epigastric and right upper quadrant areas as well as lower rib areas. Patient has been started on a heparin drip. - EKG: Sinus rhythm with LVH, nonspecific ST changes - Chest x-ray: No acute process - Laboratory studies: WBC 7, hemoglobin 16.4. D-dimer 0.22. Troponin negative x 4. Electrolytes normal. BUN 18 creatinine 0.66. Magnesium 1.9. - Home cardiac medications: Lisinopril 10 mg daily, hydrochlorothiazide 25 mg daily 03/03/2024 Patient was seen and examined resting comfortably in bed with at bedside. Echocardiogram done yesterday showed evidence of impaired LV systolic function with an ejection fraction of 35 to 40% and LVH. She did have cardiac workup many years ago in [place] but does not recall being told she had a weakened heart muscle. She does have a history of alcohol abuse quite heavily over the past 6 months as well as drug abuse, using crystal meth regularly. She continues to complain of bilateral lower rib and bilateral upper quadrant pain that is constant with no variation and some tenderness to palpation. Denies any shortness of breath and has no orthopnea or PND. She has no lower extremity edema. Labs show normal renal function. LDL 115.7. 03/04/2024 Was seen and examined resting comfortably in bed with at bedside. She continues to complain of bilateral lower rib and bilateral upper quadrant pain that radiates around to the back with tenderness to palpation. She was seen by general surgery and not felt to require any surgical intervention at this time. Labs from this morning are pending. Breathing has been stable and she has no edema or orthopnea. Objective - Vital Signs Vital signs: Vital Signs Temp 98.2 F 03/04/24 06:50 Pulse 94 03/04/24 06:50 Resp 16 03/04/24 06:50 BP 118/78 03/04/24 06:50 Pulse Ox 95 03/04/24 06:50 FiO2 Intake & Output 03/03/24 03/04/24 03/04/24 18:59 06:59 18:59 Intake Total 354 Balance 354 Intake: Oral 354 Other: Voiding Method Toilet Toilet # Voids 3 1 # Bowel Movements 1 1 - Exam Gen: This is a 38-year-old female in no acute distress. VS: reviewed HEENT: Head is atraumatic, normocephalic. Pupils equal, round. Sclerae is anicteric. NECK: Supple. No JVD. LUNGS: Clear to auscultation. No wheezes or rhonchi. No intercostal retractions. HEART: Regular rate and rhythm. No murmur. ABDOMEN: Bilateral upper quadrant and epigastric tenderness. Soft. EXTREMITIES: No pedal edema. No calf tenderness. NEUROLOGICAL: Patient is awake, alert and oriented x3. - Labs CBC & Chem 7: 03/03/24 04:56 03/04/24 04:46 Labs: Abnormal Lab Results - Last 24 Hours (Table) 03/03/24 03/03/24 03/03/24 Range/Units 04:56 04:56 04:56 MPV 12.4 H (9.5-12.2) FL Anion Gap 12.20 H (4.00-12.00) mmol/L BUN/Creatinine Ratio 23.25 H (12.00-20.00) Ratio NT-Pro-B Natriuret Pep 160 H (0-125) pg/mL Total Protein 6.1 L (6.2-8.2) g/dL Assessment and Plan Assessment: #1 cardiomyopathy, likely nonischemic however ischemic component cannot be fully excluded at this time #2 atypical chest pain acute coronary syndrome rule out #3 hypertension 4 alcohol abuse #5 drug abuse #6 nicotine dependence Plan: From cardiology's perspective medications were reviewed and we will continue the same. Medications can be further optimized as an outpatient. If renal function and electrolytes are stable patient may be discharged and follow-up with Dr. Whalen as an outpatient. SPECTROGRAPHER note has been reviewed, I agree with a documented findings and plan of care. Patient was seen and examined.
--- NOTE | 2024-03-04 21:20 | P.PN ---
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 Patient stated that she was having bilateral lower rib pain radiating bilaterally to the back going on for few months on and off, stress making it worse. Patient complained of some nausea, denied any vomiting. Patient denied any aggravating or relieving factor, denied any association with food intake. Patient reported sometimes she feels short of breath and lightheaded. Vital stable EKG showed sinus rhythm with LVH, nonspecific ST changes Chest x-ray negative for acute process WBC 7, hemoglobin 16.4, D-dimer 0.22, troponin negative x 4. Electrolytes normal. BUN 18, creatinine 0.66. Magnesium 1.6 Home medications lisinopril and hydrochlorothiazide 03/03 Patient with mild upper abdominal pain on both sides below the rib cage. No nausea vomiting No chest pain or dyspnea Patient states currently has menstrual cycle going on, CT of the abdomen pelvis also showing fluid and debris's in the vagina canal most likely secondary to her menses Cardiology team added beta-fernando and lower the dose of lisinopril to 5 mg. Recommend ischemic workup at certain point Patient is from long term, officer at bedside 03/04 Patient main pain and tenderness today were in the left lower chest anteriorly at the left anterior costophrenic cartilage area. Most likely patient has inflammation or musculoskeletal pain in this side Certified Professional Ergonomist evaluated the patient and recommended further workup and adjustment of medication as an outpatient. Patient no abdominal pain or tenderness today, she was able to tolerate diet. Surgery team already evaluated the patient with no need for any surgical intervention. Officer at bedside. Patient agreed with the current plan Objective - Vital Signs Vital signs: Vital Signs Temp 98.2 F 03/04/24 06:50 Pulse 94 03/04/24 06:50 Resp 16 03/04/24 06:50 BP 118/78 03/04/24 06:50 Pulse Ox 95 03/04/24 06:50 FiO2 Intake & Output 03/03/24 03/04/24 03/04/24 18:59 06:59 18:59 Intake Total 354 118 Balance 354 118 Intake: Oral 354 118 Other: Voiding Method Toilet Toilet # Voids 3 1 # Bowel Movements 1 1 - Exam GENERAL: The patient is alert and oriented x3, not in any acute distress. Well developed, well nourished. HEENT: Pupils are round and equally reacting to light. EOMI. No scleral icterus. No conjunctival pallor. Normocephalic, atraumatic. No pharyngeal erythema. No thyromegaly. CARDIOVASCULAR: S1 and S2 present. No murmurs, rubs, or gallops. -PULMONARY: Chest is clear to auscultation, no wheezing , no crackles. Significant tenderness in the left lower anterior costovertebral region ABDOMEN: Soft, nontender, nondistended, normoactive bowel sounds. No palpable organomegaly. MUSCULOSKELETAL: No joint swelling or deformity. EXTREMITIES: No cyanosis, clubbing, or pedal edema. NEUROLOGICAL: Gross neurological examination did not reveal any focal deficits. SKIN: No rashes. no petechiae. - Labs CBC & Chem 7: 03/03/24 04:56 03/04/24 04:46 Labs: Abnormal Lab Results - Last 24 Hours (Table) 03/03/24 Range/Units 04:56 NT-Pro-B Natriuret Pep 160 H (0-125) pg/mL Assessment and Plan Assessment: Assessment and plan: Atypical chest pain: Rule out cardiac causes, improved. 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
[2024-03-05] MEDS ORDERED: HEPARIN SODIUM,PORCINE (1 ML) 2,500 UNIT in SODIUM CHLORIDE 0.9% 250 ML IRRIGATION PRN (07:00)
[2024-03-05] MEDS ORDERED: HEPARIN SODIUM,PORCINE 10,000 UNIT in SODIUM CHLORIDE 0.9% 1,000 ML IRRIGATION PRN (07:00)
[2024-03-05 08:02] VITALS: BP 123/69; PULSE 56; RESP 16; TEMP 98.3
[2024-03-05] MEDS ORDERED: NITROGLYCERIN SL TABS 0.4 MG TAB SUBLINGUAL PRN (10:09)
[2024-03-05] MEDS ORDERED: ALPRAZolam 0.25 MG TAB PO PRN (10:09)
[2024-03-05] MEDS ORDERED: SODIUM CHLORIDE 0.9% 1,000 ML in EMPTY BAG 1 BAG IV SCH (10:15)
--- NOTE | 2024-03-05 13:53 | P.PN ---
Subjective Progress Note Date: 03/05/24 SURGICAL PROGRESS NOTE CHIEF COMPLAINT: Chest pain HISTORY OF PRESENT ILLNESS: Patient denies any abdominal pain. Patient reports being scheduled for stress test today with cardiology service. She denies any vomiting. She denies abdominal pain. She did have some nausea earlier. Afebrile. PHYSICAL EXAM: VITAL SIGNS: Reviewed. GENERAL: Well-developed in no acute distress. ABDOMEN: Soft. Nondistended. Nontender. NEUROLOGIC: Alert and oriented. Cranial nerves II through XII grossly intact. ASSESSMENT: 1. Abdominal pain resolved 2. Chest pain 3. Patient with alcohol and drug abuse PLAN: -No surgical intervention planned -Continue cardiac workup -Patient can have regular diet from surgical standpoint. Awaiting cardiology workup before starting diet Physician Scheduling Agent note has been reviewed by physician. Signing provider agrees with the documented findings, assessment, and plan of care. Attestation Patient seen and examined at bedside. Denies abdominal pain. No plan for s urgical intervention. Continue medical and cardiac management. Herman Crump, Objective - Vital Signs Vital signs: Vital Signs Temp 98.3 F 03/05/24 06:35 Pulse 56 L 03/05/24 06:35 Resp 16 03/05/24 06:35 BP 123/69 03/05/24 06:35 Pulse Ox 98 03/05/24 09:01 FiO2 Intake & Output 03/04/24 03/05/24 03/05/24 18:59 06:59 18:59 Intake Total 354 Balance 354 Intake: Oral 354 Other: Voiding Method Toilet Toilet # Voids 1 2 # Bowel Movements 0 0 - Labs CBC & Chem 7: 03/03/24 04:56 03/04/24 04:46
--- NOTE | 2024-03-05 16:45 | P.PN ---
Subjective Progress Note Date: 03/05/24 SUBJECTIVE: Patient is seen and examined at bedside this a.m. She is hemodynamically stable. She denies having any active chest pain chest pressure shortness of breath. She is in sinus rhythm. She appears euvolemic PHYSICAL EXAMINATION Vital signs reviewed. Head: Normocephalic. Eyes: Sclerae nonicteric. Neck: Brisk carotid upstroke, no jugular venous distention. Lungs: Clear to auscultation. Heart: Regular rate and rhythm, S1-S2, no S3, no murmur or rub. Abdomen: Soft nontender, bowel sounds present, Extremities: No edema, Neuro: Alert, oriented, no focal neurological deficits. Detailed neuro exam was not performed. ASSESSMENT Cardiomyopathy, likely nonischemic however ischemic component cannot be fully excluded at this time Atypical chest pain, acute coronary syndrome has been ruled out Hypertension Alcohol abuse Drug abuse Nicotine dependence Patient is under police custody Echocardiogram showed an EF of 35 to 40%, mild concentric LVH PLAN I recommended further cardiac workup for this cardiomyopathy and offered to perform a cardiac catheterization for the patient. I explained that the procedure steps and the risk factors associated with it. Initially patient wanted to proceed visit but then she denied and wanted to get a second opinion from our previous remediation technician in [place] on an outpatient basis. I explained her that she might be at high risk of fatal cardiac event or if she missed her coronary artery disease that is resulting her low LVEF however patient denied getting any procedures done during this hospitalization. I would recommend her to be discharged on aspirin 81 mg, Lipitor 40 mg, lisinopril 10 mg, SGLT2 and beta-fernando. Michael Savage MD, FACC, RPVI Thank you for allowing [facility] to participate in this patient's care. Please contact us in case of any followup questions. Objective - Vital Signs Vital signs: Vital Signs Temp 98.3 F 03/05/24 06:35 Pulse 56 L 03/05/24 06:35 Resp 16 03/05/24 06:35 BP 123/69 03/05/24 06:35 Pulse Ox 98 03/05/24 09:01 FiO2 Intake & Output 03/04/24 03/05/24 03/05/24 18:59 06:59 18:59 Intake Total 354 Balance 354 Intake: Oral 354 Other: Voiding Method Toilet Toilet # Voids 1 2 # Bowel Movements 0 0 - Labs CBC & Chem 7: 03/03/24 04:56 03/04/24 04:46
--- NOTE | 2024-03-09 09:32 | P.DS ---
Providers Date of admission: 03/01/24 20:25 Expected date of discharge: 03/05/24 Attending physician: Dayan Villanueva Consults: 03/03/24 12:42 Consult Physician Routine Consulting Provider: Alexander Elliott Consult Reason/Comments: abdominal pain Do you want consulting provider notified?: Yes Primary care physician: Dallin Toney Hospital Course: Final diagnosis Atypical chest pain: Rule out cardiac causes, improved. 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 Per nursing staff and police crime scene technician from the penitentiary at bedside, [facility] was notified and patient is able to leave AGAINST MEDICAL ADVICE if she chooses to. Risk versus benefits including were explained and patient signed paperwork. Patient was persistent on following up with her paper sheeter out of [place]. Total time taken is greater than 35 minutes. Hospital course This is a 38-year-old female who was recently admitted with chest pain along with upper abdominal and epigastric pain being closely monitored. Patient evaluated by general surgery with no plans for intervention reports mild improvement in abdominal pain and tolerating diet. Patient also evaluated by c ardiology recommending cardiac catheterization given patient's history and patient refused wanting to go to her paper sheeter out of [place] for their opinion prior to agreeing to any cardiac catheterization. Again risks versus benefits including were explained and patient proceeded to sign AMA paperwork. Please refer to other consultation notes for further HPI. Patient will be returning to penitentiary and reports she has a court date on Tuesday. Currently patient continues with reports of chest pain, denies shortness of breath, or palpitations. Patient is afebrile. No reports of nausea or vomiting and patient is tolerating diet. Patient will be leaving AGAINST MEDICAL ADVICE today. Guarded prognosis and high risk for readmissions given patient's comorbidities. Physical exam: Gen: This is a 38-year-old female who is awake, alert and oriented x 3, well- developed, appears older than stated age HEENT: Head is atraumatic, normocephalic. Pupils equal, round. Sclerae is anicteric. NECK: Supple. No JVD. No lymphadenopathy. No thyromegaly. LUNGS: Clear to auscultation. No wheezes or rhonchi. No intercostal retractions. HEART: Regular rate and rhythm. No murmur. ABDOMEN: Soft. Bowel sounds are present. No masses. No tenderness. EXTREMITIES: No pedal edema. No calf tenderness. NEUROLOGICAL: Patient is awake, alert and oriented x3. Cranial nerves 2 through 12 are grossly intact. Please refer to medication reconciliation sheet for a list of medications. The impression and plan of care has been dictated by Farzana Bernard, Nurse Practitioner as directed. Dr. Rich MD I have performed a history and examination and MDM of this patient, discussed the same with the dictator, and agree with the dictator's assessment and plan as written ,documented as a scribe. Based on total visit time, I have performed more than 50% of the visit. Patient Condition at Discharge: Fair Plan - Discharge Summary Discharge Rx Participant: Yes New Discharge Prescriptions: No Action lisinopriL [Zestril] 10 mg PO DAILY hydroCHLOROthiazide [Hydrodiuril] 25 mg PO DAILY cloNIDine HCL [Catapres] 0.2 mg PO ONCE Discharge Medication List hydroCHLOROthiazide [Hydrodiuril] 25 mg PO DAILY 03/01/24 [History] lisinopriL [Zestril] 10 mg PO DAILY 03/01/24 [History] cloNIDine HCL [Catapres] 0.2 mg PO ONCE 03/08/24 [History] Follow up Appointment(s)/Referral(s): None,Stated [REFERRING] - 1-2 days Discharge Disposition: LEFT AGAINST MEDICAL ADVICE
== END 2024-03-05 12:57 | disposition left against medical advice (07) ==
LOC: EC 17:27 → 6NMEDSUR 20:25
PROVIDERS: ADMIT Hospitalist; ATTEND Hospitalist
DX: R07.89 Other chest pain (principal); I42.9 Cardiomyopathy, unspecified; J45.909 Unspecified asthma, uncomplicated; I10 Essential (primary) hypertension; F17.200 Nicotine dependence, unspecified, uncomplicated; F10.10 Alcohol abuse, uncomplicated; F19.10 Other psychoactive substance abuse, uncomplicated; Z88.8 Allergy status to other drugs, medicaments and biological substances; Z79.899 Other long term (current) drug therapy; Z95.1 Presence of aortocoronary bypass graft; Z90.49 Acquired absence of other specified parts of digestive tract; Z53.29 Procedure and treatment not carried out because of patient's decision for other reasons
CPT/HCPCS: 96376 ×3; 96366 ×3; 96375; 96365; 99285; 36415; 94760; 93005; 93306; 85379; 83880; 80061; 80053 ×3; 80048; 83690; 83735 ×2; 84484 ×2; 85025 ×2; 85610; 85730 ×2; 71046; 71275; 74177; G0378 ×5; J2405; J1644 ×2; Q9967; J2470 ×4

== ENCOUNTER 2024-03-07 22:03 | Inpatient (IN) | payer OTHER ==
--- NOTE | 2024-03-07 22:48 | ED ---
General Adult HPI - General Chief complaint: Chest Pain Stated complaint: Chest pain Time Seen by Provider: 03/07/24 22:20 Source: patient, EMS, RN notes reviewed, old records reviewed Mode of arrival: EMS - History of Present Illness Initial comments: Patient is a 38-year-old female presents emergency department complaining of chest pain. Presents from shelter. 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 Was evaluated here earlier in the week and discharged home for identical complaints. States symptoms never resolved. Was discharged home she states with chest pain 6-7 out of 10. States she had an episode of it being 10 out of 10 earlier. States the pain never fully goes away but seems to be exacerbated by increased activity. When she says increased activity, she means increased use of her arms and upper body. She has noticed that it is a chest strangulation sensation where she has chest tightness all around her rib cage that is worse with movements as well as palpation. Worse with movement of her arms. Denies any nausea or vomiting with it. Denies sweating with it. States it was worse this evening which is why she presents for further evaluation. She had received mul tiple sublingual nitro at shelter with no improvement of symptoms at all. Presents for further evaluation. States it is currently approximately a 6 out of 10. The same chest pain she has been experiencing for multiple days since discharge on March 05 and since she originally presented on March 01. Has no other significant cardiac history. Presents for further evaluation. - Related Data Home Medications Medication Instructions Recorded Confirmed Albuterol Nebulized [Ventolin 2.5 mg INHALATION RT-BID PRN 03/01/24 03/01/24 Nebulized] hydroCHLOROthiazide [Hydrodiuril] 25 mg PO DAILY 03/01/24 03/01/24 lisinopriL [Zestril] 10 mg PO DAILY 03/01/24 03/01/24 Allergies Allergy/AdvReac Type Severity Reaction Status Date / Time pregabalin [From Lyrica] AdvReac CHEST Verified 03/07/24 22:11 TIGHTENING EXCEDRIN AdvReac CHEST Uncoded 03/07/24 22:11 TIGHTENING Review of Systems ROS Statement: Those systems with pertinent positive or pertinent negative responses have been documented in the HPI. Review of Systems: CONST: Denies fever EYES: Denies blurry vision ENT: Denies nasal congestion C/V: Endorses chest pain RESP: Denies shortness of breath GI: Denies abdominal pain : Denies dysuria SKIN: Denies rash. MSK: Denies joint pain. NEURO: Denies headache ROS Other: All systems not noted in ROS Statement are negative. 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 Unsure if she has a leaky valve. History of Any Multi-Drug Resistant Organisms: None Reported Past Surgical History: Appendectomy, Section, Cholecystectomy Additional Past Surgical History / Comment(s): CABG, Left knee surgeries, endometrosis surgery Past Anesthesia/Blood Transfusion Reactions: No Reported Reaction Past Psychological History: Anxiety, Bipolar Smoking Status: Current every day smoker - Past Family History Mother Additional Family Medical History / Comment(s): Grandmother had a pacemaker Father Family Medical History: Cancer Additional Family Medical History / Comment(s): colon cancer, Breast cancer runs on his side of the family. General Exam - General Exam Comments Initial Comments: General: Appears in mild distress secondary to chest discomfort. HEAD: Normal with no signs of head trauma. EYES: PERRLA, EOMI, conjunctiva normal, no discharge. ENT: Hearing grossly intact, normal oropharynx. RESPIRATORY: Clear breath sounds bilaterally. No wheezes, rales, or rhonchi. C/V: Regular rate and rhythm. S1 and S2 auscultated, no edema, peripheral pulses 2+ and intact throughout ABD: Abd is soft, nontender, nondistended EXT: Normal range of motion, no obvious deformity. Chest pain reproducible on palpation of the chest wall and ribs, also reproducible with movements. SKIN: No rashes or lesions observed on exposed skin. NEURO: Alert and oriented x 4. Course Vital Signs 03/07/24 03/07/24 22:05 23:02 Temperature 98.8 F Pulse Rate 84 70 Respiratory 18 18 Rate Blood Pressure 104/90 138/84 O2 Sat by Pulse 98 100 Oximetry Medical Decision Making - Medical Decision Making Was pt. sent in by a medical professional or institution (, PA, REFRIGERATION LEAD, urgent care, hospital, or care home...) When possible be specific @ -Patient sent from shelter for chest pain. Did you speak to anyone other than the patient for history (EMS, parent, family, police, friend...)? What history was obtained from this source @ -No Did you review nursing and triage notes (agree or disagree)? Why? @ -I reviewed and agree with nursing and triage notes Were old charts reviewed (outside hosp., previous admission, EMS record, old EKG, old radiological studies, urgent care reports/EKG's, care home records)? Report findings @ -I reviewed patient's previous admission from March 01 through March 05. It appears patient may have left AMA after having cardiology recommended heart catheterization. She did defer at that time. I reviewed multiple EKGs taken during that admission with no obvious dynamic changes on today's EKG. The ST segment depressions and T wave inversions as well as the slight ST segment elevation in V1 and V2 were present on all of those EKGs as well. Was diagnosed with cardiomyopathy and atypical chest pain. Echo showed an EF of 35 to 40% with left ventricular hypertrophy. Cardiac catheterization was recommended by cardiology upon review of Dr. Savage's note. Patient declined at that time. I also reviewed the initial ER note and it did state that they contacted cardiology due to the appearance of the nearly identical EKG on presentation on March 01. At that time, cardiology was able to compare to another EKG which showed that it was chronic changes. Today's EKG appears similar to that initial EKG on March 01 which appears similar to all of the EKGs from that admission and today. No obvious dynamic changes. Differential Diagnosis (chest pain, altered mental status, abdominal pain women, abdominal pain men, vaginal bleeding, weakness, fever, dyspnea, syncope, headache, dizziness, GI bleed, back pain, seizure, CVA, palpatations, mental health, musculoskeletal)? @ -Differential Chest Pain: Stable Angina, Unstable Angina, STEMI, NSTEMI Aortic Dissection, Pneumothorax, Musculoskeletal, Esophageal Spasm GERD, Cholecystitis, Pancreatitis, Zoster, this is not meant to be an all-inclusive list. EKG interpreted by me (3pts min.). @ -As above X-rays interpreted by me (1pt min.). @ -Chest x-ray reveals no obvious acute cardiopulmonary process. CT interpreted by me (1pt min.). @ -None done U/S interpreted by me (1pt. min.). @ -None done What testing was considered but not performed or refused? (CT, X-rays, U/S, labs)? Why? @ -None What meds were considered but not given or refused? Why? @ -None Did you discuss the management of the patient with other professionals (professionals i.e. , PA, REFRIGERATION LEAD, lab, RT, psych nurse, bilingual social worker, probate lawyer, teacher, ground defence officer, case assembler)? Give summary @ -I spoke with the admitting provider, Dr. Younger of [facility] who accepted the admission. I did eventually discussed the case with Dr. Savage of cardiology who is in agreement with the plan. Was smoking cessation discussed for >3mins.? @ -No Was critical care preformed (if so, how long)? @ -Yes, 31 minutes. Frequent re-evaluations Were there social determinants of health that impacted care today? How? (Homelessness, low income, unemployed, alcoholism, drug addiction, transportation, low edu. Level, literacy, decrease access to med. care, shelter, rehab)? @ -No Was there de-escalation of care discussed even if they declined (Discuss DNR or withdrawal of care, Hospice)? DNR status @ -No What co-morbidities impacted this encounter? (DM, HTN, Smoking, COPD, CAD, Canc er, CVA, ARF, Chemo, Hep., AIDS, mental health diagnosis, sleep apnea, morbid obesity)? @ -Hypertension, alcohol abuse, drug abuse, nicotine dependence Was patient admitted / discharged? Hospital course, mention meds given and route, prescriptions, significant lab abnormalities, going to OR and other pertinent info. @ -Based on patient's presentation and physical exam, presents for recurrence of her chest pain. Chest pain does seem to be atypical in nature and more chest wall pain sensation. States she has had it since discharge 2 days ago. Describes it as a chest wall tightness sensation. This is identical to complaints on previous admission. Nitroglycerin did not improve her pain prior to arrival if she received multiple sublingual tablets. Therefore we will attempt to control with IV morphine and Toradol. Patient will be given 324 mg of aspirin. We will obtain cardiopulmonary workup. I did review the patient's EKG which does show findings concerning for ischemic changes however there are no dynamic changes when compared with the multiple EKGs from last admission. However she continues to have slight ST segment elevations in V1 and V2 as well as ST segment depressions in the inferolateral distribution. I did page on-call cardiology, Dr. Savage who did evaluate the pat ient a few days ago to discuss the EKG. Awaiting callback. I reviewed the patient's chart from that admission and it does look like the patient was heparinized, EKGs are unchanged from today's EKG, and she was evaluated and seen by cardiology. Diagnosed with suspected cardiomyopathy and cardiac c atheterization was recommended however patient declined. Echo at that time showed EF 35 to 40% with left ventricular hypertrophy. I did discuss what occurred on previous admission and patient is amenable to obtaining cardiac cath this time if it is still recommended as she is back with similar symptoms. Patient will be heparinized. She was in agreement with this plan. Chest x-ray reveals no obvious acute process. Labs returned remarkable for slight elevation in BNP however troponin is undetectable. On reevaluation, morphine and Toradol did improve the patient's atypical chest pain. I did attempt to contact cardiology x 2 with pages however received no response. I will discuss it with them if they do call back however it does appear that based on EKG, there are no dynamic changes when compared with EKGs from recent admission patient has had persistent symptoms since that admission. I discussed at length with the patient and she was more amenable to receiving cardiac catheter admitted this time. As stated above, empirically started on heparin over concern for possible ACS. Will continue treatment of her atypical chest pain with morphine. Second EKG shows no obvious acute dynamic changes. Cardiology consulted. No response to 2 cardiology pages however, after my extensive chart review I do not believe requires emergent cardiac catheterization at this time. EKG findings appear to be more chronic based on recent visit. Patient made n.p.o. after midnight. I spoke with the admitting provider, Dr. Younger of [facility] who accepted the admission. I did eventually discussed the case with Dr. Savage of cardiology who is in agreement with the plan. Undiagnosed new problem with uncertain prognosis? @ -No Drug Therapy requiring intensive monitoring for toxicity (Heparin, Nitro, Insulin, Cardizem)? @ -Heparin Were any procedures done? @ -No Diagnosis/symptom? @ -chest pain Acute, or Chronic, or Acute on Chronic? @ -Acute Uncomplicated (without systemic symptoms) or Complicated (systemic symptoms)? @ -Complicated Side effects of treatment? @ -None Exacerbation, Progression, or Severe Exacerbation] @ -No Poses a threat to life or bodily function? @ -Potentially, yes - Lab Data Result diagrams: 03/07/24 22:10 03/07/24 22:10 Lab Results 03/07/24 03/07/24 03/07/24 Range/Units 22:10 22:10 22:10 WBC 6.9 (3.8-10.6) k/uL RBC 4.51 (3.80-5.40) m/uL Hgb 13.8 (11.4-16.0) gm/dL Hct 41.8 (34.0-46.0) % MCV 92.7 (80.0-100.0) fL MCH 30.6 (25.0-35.0) pg MCHC 33.1 (31.0-37.0) g/dL RDW 11.9 (11.5-15.5) % Plt Count 217 (150-450) k/uL MPV 9.5 Neutrophils % 44 % Lymphocytes % 46 % Monocytes % 5 % Eosinophils % 3 % Basophils % 0 % Neutrophils # 3.0 (1.3-7.7) k/uL Lymphocytes # 3.1 (1.0-4.8) k/uL Monocytes # 0.4 (0-1.0) k/uL Eosinophils # 0.2 (0-0.7) k/uL Basophils # 0.0 (0-0.2) k/uL PT 10.9 (10.0-12.5) sec INR 1.0 (<1.2) APTT 24.3 (22.0-30.0) sec Sodium 139 (137-145) mmol/L Potassium 3.7 (3.5-5.1) mmol/L Chloride 110 H (98-107) mmol/L Carbon Dioxide 23 (22-30) mmol/L Anion Gap 6 mmol/L BUN 22 H (7-17) mg/dL Creatinine 0.68 (0.52-1.04) mg/dL Est GFR (CKD-EPI)AfAm >90 (>60 ml/min/1.73 sqM) Est GFR (CKD-EPI)NonAf >90 (>60 ml/min/1.73 sqM) Glucose 98 (74-99) mg/dL Calcium 9.0 (8.4-10.2) mg/dL Magnesium 2.0 (1.6-2.3) mg/dL Total Bilirubin 0.3 (0.2-1.3) mg/dL AST 18 (14-36) U/L ALT 20 (4-34) U/L Alkaline Phosphatase 64 (38-126) U/L Troponin I (0.000-0.034) ng/mL NT-Pro-B Natriuret Pep 579 pg/mL Total Protein 6.6 (6.3-8.2) g/dL Albumin 4.0 (3.5-5.0) g/dL Lipase 115 (23-300) U/L 03/07/24 Range/Units 22:10 WBC (3.8-10.6) k/uL RBC (3.80-5.40) m/uL Hgb (11.4-16.0) gm/dL Hct (34.0-46.0) % MCV (80.0-100.0) fL MCH (25.0-35.0) pg MCHC (31.0-37.0) g/dL RDW (11.5-15.5) % Plt Count (150-450) k/uL MPV Neutrophils % % Lymphocytes % % Monocytes % % Eosinophils % % Basophils % % Neutrophils # (1.3-7.7) k/uL Lymphocytes # (1.0-4.8) k/uL Monocytes # (0-1.0) k/uL Eosinophils # (0-0.7) k/uL Basophils # (0-0.2) k/uL PT (10.0-12.5) sec INR (<1.2) APTT (22.0-30.0) sec Sodium (137-145) mmol/L Potassium (3.5-5.1) mmol/L Chloride (98-107) mmol/L Carbon Dioxide (22-30) mmol/L Anion Gap mmol/L BUN (7-17) mg/dL Creatinine (0.52-1.04) mg/dL Est GFR (CKD-EPI)AfAm (>60 ml/min/1.73 sqM) Est GFR (CKD-EPI)NonAf (>60 ml/min/1.73 sqM) Glucose (74-99) mg/dL Calcium (8.4-10.2) mg/dL Magnesium (1.6-2.3) mg/dL Total Bilirubin (0.2-1.3) mg/dL AST (14-36) U/L ALT (4-34) U/L Alkaline Phosphatase (38-126) U/L Troponin I <0.012 (0.000-0.034) ng/mL NT-Pro-B Natriuret Pep pg/mL Total Protein (6.3-8.2) g/dL Albumin (3.5-5.0) g/dL Lipase (23-300) U/L - EKG Data -: EKG Interpreted by Me EKG Comments: 12-lead Electrocardiogram Interpretation Note EKG was reviewed and interpreted by myself. 12-lead ECG performed at 2207 is interpreted by me as revealing normal sinus rhythm at a rate of 83 beats per minute. [place] is normal. MN interval is 146 ms, QRS duration is 102 ms, QTc is 399 ms.. Patient has somewhat diffuse ST segment depressions and T wave inversions in the lateral precordial leads V4 through V6 as well as in inferior distribution leads II, 3, aVF. Patient also has very subtle ST segment elevations in V1 and V2. This is somewhat nonspecific findings but is concerning for ischemic changes. Compared with the multiple EKGs that were obtained on previous admission from February for , , . No significant dynamic changes from those EKGs.. R wave progression across the precordium was satisfactory. 12-lead Electrocardiogram Interpretation Note EKG was reviewed and interpreted by myself. 12-lead ECG performed at 2338 is interpreted by me as revealing normal sinus rhythm at a rate of 60 beats per minute. [place] is normal. MN interval is 147 ms, QRS duration is 107 ms, QTc is [address] segment and T wave abnormalities present as demons trated on previous EKG from today as well as prior EKGs from March 01, . Has continued subtle ST segment elevations in V1 and V2 seen on those EKGs as well, as well as mild ST segment depression with T wave inversions in the inferior and lateral distribution. R wave progression across the precordium was satisfactory.. No acute dynamic changes when compared with prior EKGs. Critical Care Time Critical Care Time: Yes Total Critical Care Time: 31 Disposition Clinical Impression: Chest pain Disposition: ADMITTED IP TO THIS HOSP Condition: Stable Time of Disposition: 23:40
[2024-03-07] MEDS: SODIUM CHLORIDE 0.9% 1,000 ML IV STA ×2 (22:55)
[2024-03-07] MEDS: KETOROLAC 15 MG/ML 1 ML VIAL IVP STA (22:55)
[2024-03-07 22:56] LABS: Basophils % (A) 0 %; Eosinophils # (A) 0.2 k/uL (0-0.7); Eosinophils % (A) 3 %; HCT 41.8 % (34.0-46.0); HGB 13.8 gm/dL (11.4-16.0); Lymphocytes # (A) 3.1 k/uL (1.0-4.8); Lymphocytes % (A) 46 %; MCH 30.6 pg (25.0-35.0); MCHC 33.1 g/dL (31.0-37.0); MCV 92.7 fL (80.0-100.0); Mean Platelet Volume 9.5; Monocytes # (A) 0.4 k/uL (0-1.0); Monocytes % (A) 5 %; Neutrophils % (A) 44 %; Platelet Count 217 k/uL (150-450); RBC 4.51 m/uL (3.80-5.40); RDW 11.9 % (11.5-15.5); WBC 6.9 k/uL (3.8-10.6)
[2024-03-07] MEDS: MORPHINE SULFATE 4 MG/ML SYRINGE IVP STA ×2 (22:56→23:33)
[2024-03-07] MEDS: ASPIRIN 81 MG PO STA (22:57)
[2024-03-07 23:05] LABS: ALT 20 U/L (4-34); AST 18 U/L (14-36); African American GFR (CKD) >90 (>60 ml/min/1.73 sqM); Alkaline Phosphatase 64 U/L (38-126); Anion Gap 6 mmol/L; Blood Urea Nitrogen 22 mg/dL (7-17); Carbon Dioxide 23 mmol/L (22-30); Chloride 110 mmol/L (98-107); Glucose 98 mg/dL (74-99); Lipase 115 U/L (23-300); Non-African American GFR(CKD) >90 (>60 ml/min/1.73 sqM); Potassium 3.7 mmol/L (3.5-5.1); Sodium 139 mmol/L (137-145); Total Bilirubin 0.3 mg/dL (0.2-1.3); Total Protein 6.6 g/dL (6.3-8.2)
[2024-03-07] MEDS: HEPARIN SODIUM 1,000 UN/ML (10ML VL) IV ONE (23:05)
[2024-03-07] MEDS: HEPARIN SOD,PORK IN 0.45% NACL 25,000 UNIT in 0.45% NACL 1 250ML.BAG IV SCH (23:07)
[2024-03-07 23:10] LABS: Partial Thromboplastin Time 24.3 sec (22.0-30.0); Prothrombin Time 10.9 sec (10.0-12.5)
[2024-03-07 23:13] LABS: NT-Pro-B-Type Natriuretic Pept 579 pg/mL
--- NOTE | 2024-03-07 23:27 | XR ---
EXAMINATION TYPE: XR chest 2V DATE OF EXAM: 03/07/2024 CLINICAL HISTORY: Chest pain TECHNIQUE: Frontal and lateral views of the chest are obtained. COMPARISON: Chest x-ray March 01, 2024 FINDINGS: Overlying sternal wires are redemonstrated. There is no focal air space opacity, pleural ef fusion, or pneumothorax seen. The cardiac silhouette size is upper limits of normal. The osseous s tructures are intact. IMPRESSION: No acute pulmonary process. [facility], , 03/07/2024 11:24 PM
[2024-03-07] MEDS: ONDANSETRON 4 MG/2 ML VIAL IVP STA (23:30)
[2024-03-07] MEDS ORDERED: NALOXONE 0.4 MG/ML 1 ML VIAL IV PRN (23:45)
[2024-03-08 06:12] LABS: Basophils % (A) 0 %; Eosinophils # (A) 0.1 k/uL (0-0.7); Eosinophils % (A) 2 %; HCT 37.9 % (34.0-46.0); HGB 12.7 gm/dL (11.4-16.0); Lymphocytes # (A) 2.8 k/uL (1.0-4.8); Lymphocytes % (A) 41 %; MCH 31.4 pg (25.0-35.0); MCHC 33.4 g/dL (31.0-37.0); MCV 93.8 fL (80.0-100.0); Mean Platelet Volume 9.6; Monocytes # (A) 0.3 k/uL (0-1.0); Monocytes % (A) 5 %; Neutrophils # (A) 3.3 k/uL (1.3-7.7); Neutrophils % (A) 50 %; Platelet Count 181 k/uL (150-450); RBC 4.04 m/uL (3.80-5.40); RDW 12.6 % (11.5-15.5); WBC 6.7 k/uL (3.8-10.6)
[2024-03-08 06:20] LABS: Appearance,Urine Cloudy (Clear); Bacteria,Urine Many /hpf; Bilirubin,Urine Negative (Negative); Blood,Urine Negative (Negative); Color,Urine Yellow; Glucose,Urine (UA) 3+ (Negative); Ketones,Urine Negative (Negative); Leukocyte Esterase,Urine Large (Negative); Mucus,Urine Moderate /hpf; Nitrite,Urine Positive (Negative); Protein,Urine Trace (Negative); RBC,Urine 5 /hpf (0-5); Specific Gravity,Urine 1.023 (1.001-1.035); Squamous Epithelial Cell,Urine 3 /hpf (0-4); WBC,Urine 19 /hpf (0-5)
[2024-03-08 06:26] LABS: ALT 186 U/L (4-34); AST 289 U/L (14-36); African American GFR (CKD) >90 (>60 ml/min/1.73 sqM); Albumin 3.5 g/dL (3.5-5.0); Alkaline Phosphatase 63 U/L (38-126); Anion Gap 4 mmol/L; Blood Urea Nitrogen 21 mg/dL (7-17); Calcium 8.3 mg/dL (8.4-10.2); Carbon Dioxide 22 mmol/L (22-30); Chloride 114 mmol/L (98-107); Glucose 85 mg/dL (74-99); Non-African American GFR(CKD) >90 (>60 ml/min/1.73 sqM); Potassium 3.8 mmol/L (3.5-5.1); Prothrombin Time 10.8 sec (10.0-12.5); Sodium 140 mmol/L (137-145); Total Bilirubin 0.6 mg/dL (0.2-1.3)
[2024-03-08 06:27] LABS: Partial Thromboplastin Time 43.1 sec (22.0-30.0)
[2024-03-08] MEDS: HEPARIN SODIUM 1,000 UN/ML (10ML VL) IV PRN (07:18)
[2024-03-08] MEDS ORDERED: ALPRAZolam 0.25 MG TAB PO PRN (11:25)
[2024-03-08] MEDS ORDERED: ALPRAZolam 0.5 MG TAB PO PRN (11:25)
[2024-03-08] MEDS ORDERED: NITROGLYCERIN SL TABS 0.4 MG TAB SUBLINGUAL PRN (11:25)
[2024-03-08] MEDS: SODIUM CHLORIDE 0.9% 1,000 ML in EMPTY BAG 1 BAG IV SCH (12:00)
--- NOTE | 2024-03-08 13:00 | P.CRDCN ---
History of Present Illness Consult date: 03/08/24 Consult reason: chest pain History of present illness: This is a 38-year-old female with no previous cardiac history. 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 We have been asked to evaluate the patient for chest pain. Patient is here as an inmate from the correction with Sheriff crockett at the bedside. She had a recent hospitalization 03/02 at which time she was seen by cardiology and found to have cardiomyopathy thought to be nonischemic most likely an acute coronary syndrome was ruled out. Her echocardiogram revealed EF of 35 to 40% with mild concentric LVH. Patient was given option of a left heart catheterization at that time but declined and wanted to get a second opinion from a previous forensic manager in [place] as an outpatient. Patient now presents again with Sheriff crockett in attendance complaining of chest pain similar to what brought her in last time, tightness in her chest that is constant. Activity makes her chest pain worse. It starts in the left lateral chest wall and around to the mid chest. No tenderness to palpation. She states a squeezing type of 8 out of 10. Pain has been going on for a few months on and off. Patient has been started on a heparin drip. She is seen in the emergency center waiting for bed on the cardiac stepdown unit. Again gave patient the option of left heart catheterization and she is agreeable to move forward with this. - EKG: Sinus rhythm with nonspecific ST changes - Chest x-ray: No acute process - Laboratory studies: CBC within normal limits. Potassium 3.8, creatinine 0.74. AST 289 and ALT 186. Troponin negative x 3. - Home cardiac medications: Lisinopril 10 mg daily, hydrochlorothiazide 25 mg daily Review Of Systems: At the time of my exam: CONSTITUTIONAL: Denies fever or chills. HEENT: Denies blurred vision, vision changes, or eye pain. Denies hemoptysis CARDIOVASCULAR: Reports chest pain. Denies orthopnea. Denies PND. Denies palpitations RESPIRATORY: Denies shortness of breath. GASTROINTESTINAL: Reports abdominal pain. Denies nausea or vomiting. HEMATOLOGIC: Denies bleeding disorders. GENITOURINARY: Denies any blood in urine. SKIN: Denies puritis. Denies rash. Physical examination: Gen: This is a 38-year-old female in no acute distress. VS: reviewed HEENT: Head is atraumatic, normocephalic. Pupils equal, round. Sclerae is anicteric. NECK: Supple. No JVD. LUNGS: Clear to auscultation. No wheezes or rhonchi. No intercostal retractions. HEART: Regular rate and rhythm. No murmur. ABDOMEN: Right upper quadrant and epigastric tenderness. Soft. EXTREMITIES: No pedal edema. No calf tenderness. NEUROLOGICAL: Patient is awake, alert and oriented x3. 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 Whalen N.p.o. after midnight Smoking cessation. Patient will be provided the [facility] quit line information at discharge. Thank you kindly for this consultation. Nurse practitioner note has been reviewed, I agree with documented findings and plan of care. Patient was seen and examined. 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 Unsure if she has a leaky valve. History of Any Multi-Drug Resistant Organisms: None Reported Past Surgical History: Appendectomy, Section, Cholecystectomy Additional Past Surgical History / Comment(s): CABG, Left knee surgeries, endome trosis surgery Past Anesthesia/Blood Transfusion Reactions: No Reported Reaction Past Psychological History: Anxiety, Bipolar Smoking Status: Current every day smoker - Past Family History Mother Additional Family Medical History / Comment(s): Grandmother had a pacemaker Father Family Medical History: Cancer Additional Family Medical History / Comment(s): colon cancer, Breast cancer runs on his side of the family. Medications and Allergies Home Medications Medication Instructions Recorded Confirmed Type hydroCHLOROthiazide [Hydrodiuril] 25 mg PO DAILY 03/01/24 03/08/24 History lisinopriL [Zestril] 10 mg PO DAILY 03/01/24 03/08/24 History cloNIDine HCL [Catapres] 0.2 mg PO ONCE 03/08/24 03/08/24 History Allergies Allergy/AdvReac Type Severity Reaction Status Date / Time aspirin Allergy Per SCC Verified 03/08/24 08:55 Chcf pregabalin [From Lyrica] AdvReac CHEST Verified 03/08/24 08:23 TIGHTENING EXCEDRIN AdvReac CHEST Uncoded 03/08/24 08:23 TIGHTENING Physical Exam Vitals: Vital Signs Temp Pulse Resp BP Pulse Ox 03/08/24 07:00 98.7 F 63 14 111/75 96 03/08/24 06:48 66 18 117/3 98 03/08/24 04:19 61 18 115/49 97 03/08/24 02:10 67 18 138/74 97 03/07/24 23:02 70 18 138/84 100 03/07/24 22:05 98.8 F 84 18 104/90 98 Intake and Output 03/07/24 03/08/24 03/08/24 22:59 06:59 14:59 Intake Total 60.419 Balance 60.419 Intake: Intake, IV Titration 60.419 Amount Heparin Sod,Pork in 0.45% 60.419 NaCl 25,000 unit In 0.45 % NaCl 1 250ml.bag @ 12 UNITS/KG/HR 7.294 mls/hr IV .Q24H [facility] Rx#: [id number] Other: Weight 60.781 kg Results 03/08/24 05:47 03/08/24 05:47 Cardiac Enzymes 03/07/24 03/07/24 03/08/24 Range/Units 22:10 22:10 02:14 AST 18 (14-36) U/L Troponin I <0.012 <0.012 (0.000-0.034) ng/mL 03/08/24 03/08/24 Range/Units 05:47 05:47 AST 289 H (14-36) U/L Troponin I <0.012 (0.000-0.034) ng/mL Coagulation 03/07/24 03/08/24 Range/Units 22:10 05:47 PT 10.9 10.8 (10.0-12.5) sec APTT 24.3 43.1 H (22.0-30.0) sec CBC 03/07/24 03/08/24 Range/Units 22:10 05:47 WBC 6.9 6.7 (3.8-10.6) k/uL RBC 4.51 4.04 (3.80-5.40) m/uL Hgb 13.8 12.7 (11.4-16.0) gm/dL Hct 41.8 37.9 (34.0-46.0) % Plt Count 217 181 (150-450) k/uL Comprehensive Metabolic Panel 03/07/24 03/08/24 Range/Units 22:10 05:47 Sodium 139 140 (137-145) mmol/L Potassium 3.7 3.8 (3.5-5.1) mmol/L Chloride 110 H 114 H (98-107) mmol/L Carbon Dioxide 23 22 (22-30) mmol/L BUN 22 H 21 H (7-17) mg/dL Creatinine 0.68 0.74 (0.52-1.04) mg/dL Glucose 98 85 (74-99) mg/dL Calcium 9.0 8.3 L (8.4-10.2) mg/dL AST 18 289 H (14-36) U/L ALT 20 186 H (4-34) U/L Alkaline Phosphatase 64 63 (38-126) U/L Total Protein 6.6 6.0 L (6.3-8.2) g/dL Albumin 4.0 3.5 (3.5-5.0) g/dL Current Medications Generic Name Dose Route Start Last Admin Trade Name Haydenq PRN Reason Stop Dose Admin Heparin Sodium (Porcine) 0 unit 03/07/24 22:59 03/08/24 07:18 Heparin Sodium 1,000 Un/Ml (10ml Vl) IV 1,519.525 unit PER PROTOCOL PRN Administration Low PTT Protocol Sodium Chloride 1,000 mls @ 75 mls/hr 03/07/24 22:28 03/07/24 22:55 Saline 0.9% IV 03/08/24 11:47 75 mls/hr .[id number] STA Administration Heparin Sodium/Sodium Chloride 250 mls @ 7.294 mls/hr 03/07/24 23:00 03/08/24 07:24 25,000 unit/ Sodium Chloride IV 14 units/kg/hr .Q24H SANDY 8.509 mls/hr Titration Protocol 12 UNITS/KG/HR Morphine Sulfate 4 mg 03/07/24 23:45 Morphine Sulfate 4 Mg/Ml Syringe IV Q4HR PRN Severe Pain (Scale 7 to 10) Naloxone HCl 0.2 mg 03/07/24 23:45 Naloxone 0.4 Mg/Ml 1 Ml Vial IV Q2M PRN Opioid Reversal Ondansetron HCl 4 mg 03/07/24 23:45 Ondansetron 4 Mg/2 Ml Vial IVP Q8HR PRN Nausea And Vomiting Intake and Output 03/07/24 03/08/24 03/08/24 22:59 06:59 14:59 Intake Total 60.419 Balance 60.419 Intake: Intake, IV Titration 60.419 Amount Heparin Sod,Pork in 0.45% 60.419 NaCl 25,000 unit In 0.45 % NaCl 1 250ml.bag @ 12 UNITS/KG/HR 7.294 mls/hr IV .Q24H [facility] Rx#: [id number] Other: Weight 60.781 kg 03/08/24 05:47 03/08/24 05:47
--- NOTE | 2024-03-08 15:58 | P.HPIM ---
History of Present Illness H&P Date: 03/08/24 This is a 38-year-old female who presented to the emergency department with continued ongoing chest pain. Patient was recently hospitalized last week from [facility] for chest pain and proceeded to leave AGAINST MEDICAL ADVICE as she refused cardiac catheterization here and wanted to follow-up with her vice president of consulting services in [place]. Patient continues to be incarcerated and continued to have experiencing the same type of chest pain with no relief. Patient's labs reviewed on admission and CBC normal, sodium 139, potassium 3.7, creatinine 0.68, troponins x 3 have been negative and a BNP was 579. Patient was started on heparin drip and admitted for cardiology consultation. Patient has s ignificant past medical history of CABG due to a tumor on her heart that was removed. REVIEW OF SYSTEMS: CONSTITUTIONAL: No fever, no malaise, no fatigue. HEENT: No recent visual problems or hearing problems. Denied any sore throat. CARDIOVASCULAR: Reports continued ongoing chest pain, orthopnea, PND, no palpitations, no syncope. PULMONARY: Reports shortness of breath, no cough, no hemoptysis. GASTROINTESTINAL: No diarrhea, no nausea, no vomiting, no abdominal pain. NEUROLOGICAL: No headaches, no weakness, no numbness. HEMATOLOGICAL: Denies any bleeding or petechiae. GENITOURINARY: Denies any burning micturition, frequency, or urgency. MUSCULOSKELETAL/RHEUMATOLOGICAL: Denies any joint pain, swelling, or any muscle pain. ENDOCRINE: Denies any polyuria or polydipsia. The rest of the 14-point review of systems is negative. PHYSICAL EXAMINATION: GENERAL: The patient is alert and oriented x3, not in any acute distress. Well developed, well nourished. HEENT: Pupils are round and equally reacting to light. EOMI. No scleral icterus. No conjunctival pallor. Normocephalic, atraumatic. No pharyngeal erythema. No thyromegaly. CARDIOVASCULAR: S1 and S2 present. No murmurs, rubs, or gallops. PULMONARY: Chest is clear to auscultation, no wheezing or crackles. ABDOMEN: Soft, nontender, nondistended, normoactive bowel sounds. No palpable organomegaly. MUSCULOSKELETAL: No joint swelling or deformity. EXTREMITIES: No cyanosis, clubbing, or pedal edema. NEUROLOGICAL: Gross neurological examination did not reveal any focal deficits. SKIN: No rashes. Assessment: Chest pain, rule out ACS History of asthma, not in exacerbation History of hypertension History of lupus History of fibromyalgia Previous CABG due to a tumor per patient that was removed History of anxiety/bipolar Continued ongoing nicotine dependence Plan: Patient admitted with cardiology on consult for continued chest pain Patient is currently incarcerated and reports after leaving last week continue to have chest pain. Patient unable to follow-up with her vice president of consulting services out of [place] and came here for further evaluation Cardiology evaluated the patient recommending cardiac catheterization and pat ient is agreeable. Patient will be n.p.o. at midnight and awaiting cardiac catheterization Will follow-up and repeat labs in the a.m. Discussed further with cardiology once catheterization is performed regarding treatment plan and discharge planning The impression and plan of care has been dictated by Farzana Bernard, Nurse Practitioner as directed. Dr. Gaurang MD I have performed a history and examination and MDM of this patient, discussed the same with the dictator, and agree with the dictator's assessment and plan as written ,documented as a scribe. Based on total visit time, I have performed more than 50% of the visit. 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 Unsure if she has a leaky valve. History of Any Multi-Drug Resistant Organisms: None Reported Past Surgical History: Appendectomy, Section, Cholecystectomy Additional Past Surgical History / Comment(s): CABG, Left knee surgeries, endometrosis surgery Past Anesthesia/Blood Transfusion Reactions: No Reported Reaction Past Psychological History: Anxiety, Bipolar Smoking Status: Current every day smoker - Past Family History Mother Additional Family Medical History / Comment(s): Grandmother had a pacemaker Father Family Medical History: Cancer Additional Family Medical History / Comment(s): colon cancer, Breast cancer runs on his side of the family. Medications and Allergies Home Medications Medication Instructions Recorded Confirmed Type hydroCHLOROthiazide [Hydrodiuril] 25 mg PO DAILY 03/01/24 03/08/24 History lisinopriL [Zestril] 10 mg PO DAILY 03/01/24 03/08/24 History cloNIDine HCL [Catapres] 0.2 mg PO ONCE 03/08/24 03/08/24 History Allergies Allergy/AdvReac Type Severity Reaction Status Date / Time aspirin Allergy Per SCC Verified 03/08/24 08:55 Snf pregabalin [From Lyrica] AdvReac CHEST Verified 03/08/24 08:23 TIGHTENING EXCEDRIN AdvReac CHEST Uncoded 03/08/24 08:23 TIGHTENING Physical Exam Vitals: Vital Signs Temp Pulse Resp BP Pulse Ox 03/08/24 07:00 98.7 F 63 14 111/75 96 03/08/24 06:48 66 18 117/3 98 03/08/24 04:19 61 18 115/49 97 03/08/24 02:10 67 18 138/74 97 03/07/24 23:02 70 18 138/84 100 03/07/24 22:05 98.8 F 84 18 104/90 98 Intake and Output 03/07/24 03/08/24 03/08/24 22:59 06:59 14:59 Intake Total 60.419 Balance 60.419 Intake: Intake, IV Titration 60.419 Amount Heparin Sod,Pork in 0.45% 60.419 NaCl 25,000 unit In 0.45 % NaCl 1 250ml.bag @ 12 UNITS/KG/HR 7.294 mls/hr IV .Q24H [facility] Rx#: [id number] Other: Weight 60.781 kg Results CBC & Chem 7: 03/08/24 05:47 03/08/24 05:47 Labs: Abnormal Lab Results - Last 24 Hours (Table) 03/07/24 03/08/24 03/08/24 Range/Units 22:10 05:47 05:47 APTT 43.1 H (22.0-30.0) sec Chloride 110 H 114 H (98-107) mmol/L BUN 22 H 21 H (7-17) mg/dL Calcium 8.3 L (8.4-10.2) mg/dL AST 289 H (14-36) U/L ALT 186 H (4-34) U/L Total Protein 6.0 L (6.3-8.2) g/dL Urine Appearance (Clear) Urine Protein (Negative) Urine Glucose (UA) (Negative) Urine Nitrite (Negative) Ur Leukocyte Esterase (Negative) Urine WBC (0-5) /hpf Urine Bacteria (None) /hpf Urine Mucus (None) /hpf 03/08/24 Range/Units 05:51 APTT (22.0-30.0) sec Chloride (98-107) mmol/L BUN (7-17) mg/dL Calcium (8.4-10.2) mg/dL AST (14-36) U/L ALT (4-34) U/L Total Protein (6.3-8.2) g/dL Urine Appearance Cloudy H (Clear) Urine Protein Trace H (Negative) Urine Glucose (UA) 3+ H (Negative) Urine Nitrite Positive H (Negative) Ur Leukocyte Esterase Large H (Negative) Urine WBC 19 H (0-5) /hpf Urine Bacteria Many H (None) /hpf Urine Mucus Moderate H (None) /hpf
[2024-03-08 18:38] LABS: Glucose,Whole Blood 90 mg/dL (70-110)
[2024-03-08] MEDS: ONDANSETRON 4 MG/2 ML VIAL IVP PRN (18:52)
[2024-03-08] MEDS: MORPHINE SULFATE 4 MG/ML SYRINGE IV PRN (18:55)
[2024-03-08 23:45] VITALS: RESP 16
[2024-03-09] MEDS: ASPIRIN 325 MG TAB PO ONE (06:25)
[2024-03-09] MEDS: ATORVASTATIN 80 MG TAB PO ONE (06:25)
--- NOTE | 2024-03-09 07:43 | US ---
EXAMINATION TYPE: US liver DATE OF EXAM: 03/09/2024 Exam done portable COMPARISON: CT 2023 CLINICAL INDICATION: Female, 38 years old with history of hx polysubstance, pain; TECHNIQUE: Grayscale and color Doppler imaging of the right upper quadrant was performed. FINDINGS: EXAM MEASUREMENTS: Liver Length: 16.5 cm CBD: 0.5 cm Right Kidney: 10.6 x 4.3 x 4.5 cm Pancreas: visualized portions wnl, limited by overlying midline bowel gas Liver: 2.0cm calcification right lobe Gallbladder: surgically absent Evidence for sonographic Adams's sign: no CBD: wnl Right Kidney: No hydronephrosis or masses seen IMPRESSION: Coarse echo appearance throughout the liver could reflect mild hepatic steatosis. Correlate with live r function testing. [facility], , 03/09/2024 7:41 AM
[2024-03-09 11:03] LABS: Hepatitis A Antibody IgM Nonreactive (Nonreactive); Hepatitis C IgG Antibody Nonreactive (Nonreactive)
[2024-03-09 11:04] LABS: Hepatitis B Core IgM Nonreactive (Nonreactive); Hepatitis B Surface Antigen Nonreactive (Nonreactive)
[2024-03-09] MEDS: MIDAZOLAM 2 MG/2 ML VIAL IVP ONE ×2 (11:36→11:43)
[2024-03-09] MEDS: LIDOCAINE 1% INJ 10MG/ML (20 ML MDV) SQ ONE (11:37)
[2024-03-09] MEDS: VERAPAMIL SYRINGE (5 MG/10 ML) INTRAARTER ONE (11:39)
[2024-03-09] MEDS: HYDROmorphone 0.5 MG/0.5 ML SYRINGE IVP ONE (11:40)
[2024-03-09] MEDS: NITROGLYCERIN SL TABS 0.4 MG TAB SUBLINGUAL ONE (11:43)
[2024-03-09] MEDS: IV FLUID CONTINUATION 1,000 ML IV ONE (11:44)
[2024-03-09] MEDS: TICAGRELOR 90 MG TAB PO ONE (11:52)
[2024-03-09] MEDS: HEPARIN SODIUM 1,000 UN/ML (10ML VL) IV ONE (11:54)
[2024-03-09] MEDS: HEPARIN SODIUM,PORCINE 10,000 UNIT in SODIUM CHLORIDE 0.9% 1,000 ML IRRIGATION PRN (12:05)
[2024-03-09] MEDS: HEPARIN SODIUM,PORCINE (1 ML) 2,500 UNIT in SODIUM CHLORIDE 0.9% 250 ML IRRIGATION PRN (12:06)
[2024-03-09] MEDS: IOPAMIDOL-370 100ML BTL INJ ONE ×2 (12:12→12:25)
[2024-03-09] MEDS ORDERED: RX INFO: IV CONTRAST WAS GIVEN 1 EACH MISC MISCELLANE PRN (12:28)
[2024-03-09] MEDS ORDERED: ATROPINE SULFATE 0.1 MG/ML 10ML SYRINGE IV PRN (12:28)
[2024-03-09] MEDS ORDERED: ZOLPIDEM 5 MG TAB PO PRN (12:28)
[2024-03-09] MEDS ORDERED: MAG HYDROX/AL HYDROX/SIMETH 30 ML CUP PO PRN (12:28)
--- NOTE | 2024-03-09 12:59 | P.PCN ---
Date of Procedure: 03/09/24 Operative Findings: CARDIAC CATHETERIZATION AND PERCUTANEOUS CORONARY INTERVENTION PERFORMING PHYSICIAN: Mk Whalen MD, [facility] PROCEDURE PERFORMED: 1. Selective right and left coronary angiogram and left heart catheterization 2. Successful stenting of mid LAD using 3.25 x 18 mm Xience ISAAC which was po stdilated using 3.75 mm NC balloon with an excellent angiographic results and reduction of stenosis from 90% to 0% with adjunctive use of IVUS 3. IFR of the RCA 4. Selective right common femoral artery angiogram 5. Ultrasound-guided access of the right radial artery INDICATION: Recurrent episodes of chest discomfort concerning for unstable angina COMPLICATION: None APPROACH: Right radial artery and right common femoral artery LEVEL OF SEDATION: Moderate with the sedation time off 47 minutes PROCEDURE DESCRIPTION: After obtaining informed consent the patient was brought to the cardiac Potato Peeling Machine Operator where the right radial artery was cannulated using micropuncture technique under ultrasound guidance a micropuncture wire passed easily and I placed a 6 Cymraes 11 cm sheath at the right radial artery and subsequently the patient was given 5000's of heparin intravenous and 2 mg of verapamil intra-arterial. Attempting doing coronary angiogram from right radial approach was unsuccessful because of severe vasospasm and severe pain in the right arm and with that we aborted the right radial approach and we accessed the right common femoral artery using micropuncture technique the micropuncture wire passed easily then I placed a 6 Cymraes 11 cm sheath at the right common femoral artery. Selective right and left coronary angiogram performed using JR4 and JL 3.5. Left heart catheterization was performed using the JR4 catheter which crossed the aortic valve. After that we decided to intervene on the LAD and do an IFR of the RCA. Anticoagulation continued using heparin with continuous ACT monitoring. Subsequently I did engage the left main using an EBU 3.75 guiding catheter. I did wired the LAD using a run-through wire. Intravascular ultrasound was performed and showed a diameter around 3 mm. I predilated using 3.0 mm balloon before I deployed 3.25 x 18 mm stent where the stent was positioned under fluoroscopy guidance and deployed under fluoroscopy guidance. I did postdilated the stent using initially 3.5 mm balloon with an IVUS was performed after that and showed that the stent was not well expanded. At that point I decided to postdilated using a 3.75 mm NC balloon with final angiogram showing better angiographic results. At that point the procedure was completed in terms of fixing the LAD. After that I decided to do an IFR of the RCA. After zeroing the Doppler wire and equalizing between the Doppler wire and guiding catheter which was JR4 guiding catheter the RCA was engaged and subsequently wired. We did an IFR and that came into at 0.94. The procedure was completed with no complication. Selective right common femoral artery angiogram was performed and the end and finally I did deploy the Angio-Seal device. The procedure was completed with no complication SELECTIVE CORONARY ANGIOGRAM: The right coronary artery: Large caliber vessel and a dominant vessel with intermediate to severe disease involving the proximal to midportion documented to be nonflow limiting by Doppler wire Left main: Is angiographically normal The left circumflex: Large-caliber vessel nondominant vessel appears free from any high-grade stenosis The left anterior descending artery: The proximal LAD appears to be angiographically normal but the mid LAD has a focal lesion just before the bifurcation of a diagonal branch appears to be in the range of 80%. HEMODYNAMICS: The LVEDP was 12 mmHg with no significant gradient across aortic valve CONCLUSION: 1. Critical disease involving the mid LAD. I did perform successful PCI of the LAD as described above 2. Intermediate disease involving the proximal to mid RCA documented to be nonflow limiting by Doppler wire 3. Normal left-sided filling pressure POSTPROCEDURE MANAGEMENT: 1. Dual antiplatelet therapy using aspirin and Brilinta for 6 month 2. Aggressive cholesterol control 3. Follow-up with the patient
--- NOTE | 2024-03-09 13:35 | P.PN ---
Subjective Progress Note Date: 03/09/24 This is a 38-year-old female who presented to the emergency department with continued ongoing chest pain. Patient was recently hospitalized last week from [facility] for chest pain and proceeded to leave AGAINST MEDICAL ADVICE as she refused cardiac catheterization here and wanted to follow-up with her ribbon sweatband operator in [place]. Patient continues to be incarcerated and continued to have experiencing the same type of chest pain with no relief. Patient's labs reviewed on admission and CBC normal, sodium 139, potassium 3.7, creatinine 0.68, troponins x 3 have been negative and a BNP was 579. Patient was started on heparin drip and admitted for cardiology consultation. 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 03/09/2024 Patient is to be OT and follow-up continues to report 9 out of 10 chest discomfort overnight into today. Patient has decided to go for cardiac catheterization, had a stent placed to the LAD findings of intermediate disease involving the proximal to mid RCA documented to be nonflow limiting by Doppler wire. There is normal left-sided filling pressure. Patient will continue dual antiplatelet therapy with aspirin and Brilinta for 6 months and aggressive cholesterol control.. Hepatitis is panel is negative. Ultrasound reveals hepatic steatosis. REVIEW OF SYSTEMS: CONSTITUTIONAL: No fever, no malaise, no fatigue. HEENT: No recent visual problems or hearing problems. Denied any sore throat. CARDIOVASCULAR: Reports continued ongoing chest pain, orthopnea, PND, no palpitations, no syncope. PULMONARY: Reports shortness of breath, no cough, no hemoptysis. GASTROINTESTINAL: No diarrhea, no nausea, no vomiting, no abdominal pain. NEUROLOGICAL: No headaches, no weakness, no numbness. PHYSICAL EXAMINATION: GENERAL: The patient is alert and oriented x3, not in any acute distress. Well developed, well nourished. HEENT: Pupils are round and equally reacting to light. EOMI. No scleral icterus. No conjunctival pallor. Normocephalic, atraumatic. No pharyngeal erythema. No thyromegaly. CARDIOVASCULAR: S1 and S2 present. No murmurs, rubs, or gallops. PULMONARY: Chest is clear to auscultation, no wheezing or crackles. ABDOMEN: Soft, nontender, nondistended, normoactive bowel sounds. No palpable organomegaly. MUSCULOSKELETAL: No joint swelling or deformity. EXTREMITIES: No cyanosis, clubbing, or pedal edema. NEUROLOGICAL: Gross neurological examination did not reveal any focal deficits. SKIN: No rashes. Assessment: Chest pain s/t coronary artery disease patient is postoperative cardiac catheterization with stent placed to the LAD Transaminitis secondary to hepatic steatosis without evidence for hepatitis. 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 Patient unable to follow-up with her ribbon sweatband operator out of [place] and came here for further evaluation Cardiology evaluated the patient recommending cardiac catheterization. Stent placed to the LAD with cardiology recommending dual antiplatelet therapy with aspirin Brilinta for the next 6 months as well as aggressive cholesterol control with statin therapy. Will follow-up and repeat labs in the a.m. discharge back [facility]. The impression and plan of care has been dictated by Maria Dolores Gauthier, Nurse Practitioner as directed. Dr. Gaurang MD I have performed a history and examination and MDM of this patient, discussed the same with the dictator, and agree with the dictator's assessment and plan as written ,documented as a scribe. Based on total visit time, I have performed more than 50% of the visit. Objective - Vital Signs Vital signs: Vital Signs Temp 98.1 F 03/09/24 11:02 Pulse 60 03/09/24 13:15 Resp 16 03/09/24 12:45 BP 148/80 03/09/24 13:15 Pulse Ox 98 03/09/24 12:45 FiO2 Intake & Output 03/08/24 03/09/24 03/09/24 18:59 06:59 18:59 Intake Total 60.419 885.571 8231.039 Balance 60.419 470.864 4987.039 Weight 60.8 kg Intake: IV 120 Invasive Line 2 20 Intake, IV Titration 60.419 133.733 992.039 Amount Heparin Sod,Pork in 0.45% 60.419 133.733 92.039 NaCl 25,000 unit In 0.45 % NaCl 1 250ml.bag @ 12 UNITS/KG/HR 7.294 mls/hr IV .Q24H SANDY Rx#: [id number] Sodium Chloride 0.9% 1, 900 000 ml In Empty Bag 1 bag @ 1 ML/KG/HR 60.781 mls/ hr IV .[id number] SANDY Rx#: [id number] Oral 780 Other: Voiding Method Toilet Toilet # Voids 1 1 - Labs CBC & Chem 7: 03/08/24 05:47 03/08/24 05:47 Labs: Abnormal Lab Results - Last 24 Hours (Table) 03/08/24 03/09/24 Range/Units 14:43 07:22 APTT 64.6 H 61.4 H (22.0-30.0) sec Assessment and Plan Time with Patient: Less than 30
[2024-03-09 16:29] LABS: ALT 140 U/L (4-34); AST 90 U/L (14-36); African American GFR (CKD) >90 (>60 ml/min/1.73 sqM); Albumin 3.5 g/dL (3.5-5.0); Alkaline Phosphatase 78 U/L (38-126); Anion Gap 4 mmol/L; Blood Urea Nitrogen 12 mg/dL (7-17); Calcium 8.5 mg/dL (8.4-10.2); Carbon Dioxide 23 mmol/L (22-30); Chloride 109 mmol/L (98-107); Glucose 78 mg/dL (74-99); Non-African American GFR(CKD) >90 (>60 ml/min/1.73 sqM); Potassium 4.1 mmol/L (3.5-5.1); Sodium 136 mmol/L (137-145); Total Bilirubin 0.6 mg/dL (0.2-1.3); Total Protein 5.9 g/dL (6.3-8.2)
[2024-03-09] MEDS: TICAGRELOR 90 MG TAB PO SCH (20:06)
[2024-03-09] MEDS: ATORVASTATIN 80 MG TAB PO SCH (20:06)
[2024-03-10] MEDS: ASPIRIN 81 MG PO SCH (08:34)
[2024-03-10 09:34] LABS: African American GFR (CKD) >90 (>60 ml/min/1.73 sqM); Anion Gap 7 mmol/L; Blood Urea Nitrogen 11 mg/dL (7-17); Calcium 8.4 mg/dL (8.4-10.2); Carbon Dioxide 23 mmol/L (22-30); Chloride 107 mmol/L (98-107); Glucose 162 mg/dL (74-99); Non-African American GFR(CKD) >90 (>60 ml/min/1.73 sqM); Potassium 3.5 mmol/L (3.5-5.1); Sodium 137 mmol/L (137-145)
[2024-03-10 09:40] LABS: Basophils % (A) 0 %; Eosinophils # (A) 0.1 k/uL (0-0.7); Eosinophils % (A) 3 %; HCT 38.9 % (34.0-46.0); HGB 12.6 gm/dL (11.4-16.0); Lymphocytes # (A) 0.9 k/uL (1.0-4.8); Lymphocytes % (A) 18 %; MCH 30.4 pg (25.0-35.0); MCHC 32.3 g/dL (31.0-37.0); MCV 94.1 fL (80.0-100.0); Mean Platelet Volume 9.7; Monocytes # (A) 0.2 k/uL (0-1.0); Monocytes % (A) 4 %; Neutrophils # (A) 3.5 k/uL (1.3-7.7); Neutrophils % (A) 74 %; Platelet Count 181 k/uL (150-450); RBC 4.14 m/uL (3.80-5.40); RDW 12.5 % (11.5-15.5); WBC 4.7 k/uL (3.8-10.6)
[2024-03-10 11:37] VITALS: BP 149/77; PULSE 64; TEMP 98
--- NOTE | 2024-03-10 14:37 | P.PN ---
Subjective Progress Note Date: 03/10/24 This is a 38-year-old female with no previous cardiac history. 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 We have been asked to evaluate the patient for chest pain. Patient is here as an inmate from the correction with Sheriff crockett at the bedside. She had a recent hospitalization 03/02 at which time she was seen by cardiology and found to have cardiomyopathy thought to be nonischemic most likely an acute coronary syndrome was ruled out. Her echocardiogram revealed EF of 35 to 40% with mild concentric LVH. Patient was given option of a left heart catheterization at that time but declined and wanted to get a second opinion from a previous intermodal truck driver in [place] as an outpatient. Patient now presents again with Sheriff crockett in attendance complaining of chest pain similar to what brought her in last time, tightness in her chest that is constant. Activity makes her chest pain worse. It starts in the left lateral chest wall and around to the mid chest. No tenderness to palpation. She states a squeezing type of 8 out of 10. Pain has been going on for a few months on and off. Patient has been started on a heparin drip. She is seen in the emergency center waiting for bed on the cardiac stepdown unit. Again gave patient the option of left heart catheterization and she is agreeable to move forward with this. - EKG: Sinus rhythm with nonspecific ST changes - Chest x-ray: No acute process - Laboratory studies: CBC within normal limits. Potassium 3.8, creatinine 0.74. AST 289 and ALT 186. Troponin negative x 3. - Home cardiac medications: Lisinopril 10 mg daily, hydrochlorothiazide 25 mg daily Progress note March 10 Denies any chest pain chest pressure. Right femoral access site appears to be healing well. No concerns of hematoma or bleeding. No concerns of significant pain. No pulses in bilateral lower leg Telemetry shows normal rhythm. Blood pressure is good. Physical examination: Gen: This is a 38-year-old female in no acute distress. VS: reviewed HEENT: Head is atraumatic, normocephalic. Pupils equal, round. Sclerae is anicteric. NECK: Supple. No JVD. LUNGS: Clear to auscultation. No wheezes or rhonchi. No intercostal retractions. HEART: Regular rate and rhythm. No murmur. ABDOMEN: Right upper quadrant and epigastric tenderness. Soft. EXTREMITIES: No pedal edema. No calf tenderness. NEUROLOGICAL: Patient is awake, alert and oriented x3. Assessment: CAD status post PCI to LAD. 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 Follow-up outpatient with Dr. Rae. Recommend dual antiplatelet therapy for next 12 months without any interruptions. Called cardiology if in case of any concerns of bleeding. Monitor hemoglobin cholesterol levels every 6 months. Cleared from cardiology Objective - Vital Signs Vital signs: Vital Signs Temp 98.0 F 03/10/24 11:35 Pulse 64 03/10/24 11:35 Resp 16 03/10/24 11:35 BP 149/77 03/10/24 11:35 Pulse Ox 99 03/10/24 11:35 FiO2 Intake & Output 03/09/24 03/10/24 03/10/24 18:59 06:59 18:59 Intake Total 1292.039 540 380 Output Total 500 500 Balance 792.039 540 -120 Weight 63 kg Intake: IV 120 20 Invasive Line 1 10 Invasive Line 2 20 10 Intake, IV Titration 992.039 Amount Heparin Sod,Pork in 0.45% 92.039 NaCl 25,000 unit In 0.45 % NaCl 1 250ml.bag @ 12 UNITS/KG/HR 7.294 mls/hr IV .Q24H SANDY Rx#: [id number] Sodium Chloride 0.9% 1, 900 000 ml In Empty Bag 1 bag @ 1 ML/KG/HR 60.781 mls/ hr IV .[id number] SANDY Rx#: [id number] Oral 180 540 360 Output: Urine 500 500 Other: Voiding Method Toilet Toilet Toilet # Voids 1 1 1 - Labs CBC & Chem 7: 03/10/24 08:35 03/10/24 08:35 Labs: Abnormal Lab Results - Last 24 Hours (Table) 03/09/24 03/10/24 03/10/24 Range/Units 15:55 08:35 08:35 Lymphocytes # 0.9 L (1.0-4.8) k/uL Sodium 136 L (137-145) mmol/L Chloride 109 H (98-107) mmol/L Glucose 162 H (74-99) mg/dL AST 90 H (14-36) U/L ALT 140 H (4-34) U/L Total Protein 5.9 L (6.3-8.2) g/dL
--- NOTE | 2024-03-10 15:11 | P.DS ---
Providers Date of admission: 03/07/24 23:45 Attending physician: Fred Younger MD Consults: 03/07/24 23:45 Consult Physician Routine Consulting Provider: [facility] Consult Reason/Comments: chest pain, nospecific ST/T wave abnormalities Do you want consulting provider notified?: Yes 03/09/24 12:28 Consult Physician Routine Consulting Provider: [facility] Consult Reason/Comments: Post Interventional Patient Do you want consulting provider notified?: Already Contacted Primary care physician: Dallin Toney Hospital Course: Final Diagnosis Chest pain s/t coronary artery disease patient is postoperative cardiac catheterization with stent placed to the LAD Transaminitis secondary to hepatic steatosis without evidence for hepatitis. 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 as mentioned she is discharged on optimize medical therapy she is postcardiac catheterization with stent placed to the LAD. No acute complaints. Hospital Course This is a 38-year-old female who presented to the emergency department with continued ongoing chest pain. [facility] and proceeded to leave AGAINST MEDICAL ADVICE as she refused cardiac catheterization here and wanted to follow-up with her road equipment operator in [place]. Patient continues to be incarcerated and continued to have experiencing the same type of chest pain with no relief. Patient's labs reviewed on admission and CBC normal, sodium 139, potassium 3.7, creatinine 0.68, troponins x 3 have been negative and a BNP was 579. Patient was started on heparin drip and admitted for cardiology consultation. 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 Patient has decided to go for cardiac catheterization, had a stent placed to the LAD findings of intermediate disease involving the proximal to mid RCA documented to be nonflow limiting by Doppler wire. There is normal left- sided filling pressure. Patient will continue dual antiplatelet therapy with aspirin and Brilinta for 6 months and aggressive cholesterol control.. Hep atitis is panel is negative. Ultrasound reveals hepatic steatosis. Was monitored overnight and this morning reports that her chest pain has significantly improved and is almost gone. She is not reporting any shortness of breath. She is awake alert and oriented. She is complaining of some discomfort to her right wrist and right groin. Both sites are soft no evidence of hematoma or bruising. She has positive +2 dorsalis pedis pulse bilaterally. She does report some numbness to her right leg however does report a history of neuropathy and her foot is warm and again with positive pulses there is no concern of complication from the groin puncture. She has been monitored overnight on cardiac telemetry, cardiology has a follow-up with the patient today. Medications were adjusted she will discharge on a high dose of statin therapy aspirin Brilinta for the next 6 months she has been started on Toprol and increased dose of lisinopril. She was cleared for discharge today and she will be transported back to [facility]. Please see medication reconciliation for a list of current medications. Thank you for allowing us to participate in the care of this patient. The impression and plan of care has been dictated by Maria Dolores Gauthier, Nurse Practitioner as directed. Dr. Gaurang MD I have performed a history and physical examination and medical decision making of this patient, discussed the same with the dictator, and agree with the dictators assessment and plan as written, documented as a scribe. Based on total visit time, I have performed more than 50% of this visit. Patient Condition at Discharge: Stable Plan - Discharge Summary Discharge Rx Participant: Yes New Discharge Prescriptions: New Aspirin 81 mg PO DAILY #30 tab Atorvastatin [Lipitor] 80 mg PO HS #30 tab Dapagliflozin Propanediol [Farxiga] 10 mg PO DAILY #30 tab Famotidine [Pepcid] 20 mg PO DAILY #30 tablet Ticagrelor [Brilinta] 90 mg PO BID #60 tab Metoprolol Succinate (ER) [Toprol XL] 25 mg PO DAILY #30 tab lisinopriL [Zestril] 10 mg PO DAILY #30 tab Discontinued lisinopriL [Zestril] 10 mg PO DAILY hydroCHLOROthiazide [Hydrodiuril] 25 mg PO DAILY cloNIDine HCL [Catapres] 0.2 mg PO ONCE Discharge Medication List Aspirin 81 mg PO DAILY #30 tab 03/10/24 [Rx] Atorvastatin [Lipitor] 80 mg PO HS #30 tab 03/10/24 [Rx] Dapagliflozin Propanediol [Farxiga] 10 mg PO DAILY #30 tab 03/10/24 [Rx] Famotidine [Pepcid] 20 mg PO DAILY #30 tablet 03/10/24 [Rx] Metoprolol Succinate (ER) [Toprol XL] 25 mg PO DAILY #30 tab 03/10/24 [Rx] Ticagrelor [Brilinta] 90 mg PO BID #60 tab 03/10/24 [Rx] lisinopriL [Zestril] 10 mg PO DAILY #30 tab 03/10/24 [Rx] Follow up Appointment(s)/Referral(s): Mk Whalen MD [STAFF PHYSICIAN] - 1 Week Dallin Toney PAC [Primary Care Provider] - 1-2 days Patient Instructions/Handouts: Heart Failure (DC), Cigarette Smoking and Your Health (GEN), Acute Coronary Syndrome (DC), After Radial Heart Catheterization (GEN), Angio-Seal (DC) Activity/Diet/Wound Care/Special Instructions: CARDIAC CATH Support your puncture site by applying firm, steady pressure whenever you cough, laugh, sneeze or bear down to have a bowel movement (2-day restriction). Watch for any excessive bruising, active bleeding, a firm knot forming under your skin, extreme tenderness and signs of infection (redness, swelling, fever). Shower daily, do not soak puncture in a tub bath, jacuzzi, pool, atwood etc. for 1 week. This is to prevent risk of infection. Drink plenty of fluids the day of and day after your procedure to flush contrast dye out of your kidneys. Take all medications as directed. Never stop any new medication without your physicians OK. No driving for 2 days after procedure. 5- pound weight lifting restriction for 1 week Low sodium/low fat diet. Activity limited until follow up appointment with your road equipment operator. In case of any problems, please call [facility] [place] @ [phone]. Just some important facts for you to know after your stent placement Aspirin as anti-platelet therapy - Aspirin lessens the chance of heart attack and stroke. It helps prevent blood clots from forming, allowing the blood to flow more easily. Each day, you will take one 81 mg (non-enteric coated) tablet daily. Do not stop unless instructed by your doctor. Anti-platelet Therapy. -In addition to aspirin, you will take one additional anti-platelet medication daily. This will help prevent a clot from forming in your stent: Ticagreler (Brillinta) -You will need to take your anti-platelet medicine every day for 12 months -Please consult your heart doctor before you stop this medicine. -They may want you to continue for a longer period of time. Statins -A statin medication lowers cholesterol levels in the blood. This helps slow the progression of heart disease. - Please take your statin medication as prescribed by your doctor. -You may be taking one of the following statins: Atorvastatin (Lipitor) MANINDER Inhibitor -Your medication: Lisinopril used to reduce cardiovascular events and decrease blood pressure these medications are also known to prevent left ventricular remodeling after you have suffered a myocardial infarction. Do not stop taking these medicines without talking to your doctor. -Take all other medicines as directed by your doctor. Do not take any extra aspirin or ibuprofen. They can increase your risk of bleeding. Many [id number] drugs contain aspirin. If you are unsure about what the drug contains, check with your pharmacist before taking it. -For mild discomfort, you may take plain Tylenol (acetaminophen). Follow dose directions, but do not take more than 4,000 mg of acetaminophen in 24 hours. Contact your doctor right away or go to the nearest hospital Emergency Room if you have: -Severe angina or chest pain. (This may be a sign of a problem with your stent.) -Excessive bruising, blood in urine/stool or black tarry stools. Continue on aspirin and brilinta for the next 6 months. After that continue on aspirin 81 mg daily. Discharge Disposition: HOME SELF-CARE
[2024-03-11] MEDS ORDERED: METOPROLOL SUCCINATE (ER) 25 MG TAB.ER.24H PO SCH (09:00)
[2024-03-11] MEDS ORDERED: lisinopriL 10 MG TAB PO SCH (09:00)
[2024-03-11] MEDS ORDERED: DAPAGLIFLOZIN PROPANEDIOL 10 MG TABLET PO SCH (09:00)
== END 2024-03-10 14:54 | disposition home or self-care (01) | DRG 175 ==
LOC: EC 22:03 → EEVIPCON 23:45 → 3SCARD 23:45
PROVIDERS: ADMIT Internal Medicine; ATTEND Internal Medicine
PROC: 4A033BC Measurement of Arterial Pressure, Coronary, Percutaneous Approach (ICD-10-PCS; 2024-03-09)
PROC: 027034Z Dilation of Coronary Artery, One Artery with Drug-eluting Intraluminal Device, Percutaneous Approach (ICD-10-PCS; principal; 2024-03-09 09:00)
PROC: 4A023N7 Measurement of Cardiac Sampling and Pressure, Left Heart, Percutaneous Approach (ICD-10-PCS; 2024-03-09 09:00)
PROC: B2111ZZ Fluoroscopy of Multiple Coronary Arteries using Low Osmolar Contrast (ICD-10-PCS; 2024-03-09 09:00)
PROC: B41F1ZZ Fluoroscopy of Right Lower Extremity Arteries using Low Osmolar Contrast (ICD-10-PCS; 2024-03-09 09:00)
DX: I25.110 Atherosclerotic heart disease of native coronary artery with unstable angina pectoris (principal); K76.0 Fatty (change of) liver, not elsewhere classified; I10 Essential (primary) hypertension; I42.9 Cardiomyopathy, unspecified; F31.9 Bipolar disorder, unspecified; F17.210 Nicotine dependence, cigarettes, uncomplicated; F41.9 Anxiety disorder, unspecified; M79.7 Fibromyalgia; J45.909 Unspecified asthma, uncomplicated; R74.01 Elevation of levels of liver transaminase levels; F19.90 Other psychoactive substance use, unspecified, uncomplicated; Z95.1 Presence of aortocoronary bypass graft; Z88.9 Allergy status to unspecified drugs, medicaments and biological substances; Z88.6 Allergy status to analgesic agent
CPT/HCPCS: 36415; 71046; 76705; 80048; 80053; 80074; 81001; 83690; 83735; 83880; 84484; 85025; 85610; 85730; 93005; 96365; 96366; 96368; 96375; 96376; 99291

== ENCOUNTER 2024-03-29 21:20 | Inpatient (IN) | payer OTHER ==
--- NOTE | 2024-03-29 21:37 | ED ---
Chest Pain HPI - General Source: patient Mode of arrival: ambulatory Limitations: no limitations <Jacklyn Tyler - Last Filed: 03/29/24 21:37> <Farzana Turner - Last Filed: 03/29/24 23:55> - General Chief Complaint: Chest Pain Stated Complaint: CP Time Seen by Provider: 03/29/24 21:36 - History of Present Illness Initial Comments: Doris is a 38yo F with PMH of coronary artery disease who underwent cardiac stenting on March 09, 2024, patient reports that there may have been some brief period after discharge from hospital in which she was not given her dual antiplatelet medications as she is currently incarcerated and she was advised by staff at the [facility] they did not have the meds on the first 2 days she was back. Patient states that since that time she has been compliant with all medications that were administered to her. Patient states that around 7 PM today she developed crushing mid chest pain and some shortness of breath is similar to previous episodes of chest pain. This prompted her transport back to the hospital for reevaluation. Patient was not evaluated by nursing staff at the [facility], she was noted to be profoundly hypertensive with blood pressures in the 230s over 130s, she was given 3 doses of nitro with minimal improvement in her chest pain though her blood pressure did improve. (Farzana Turner) - Related Data Previous Rx's Medication Instructions Recorded Aspirin 81 mg PO DAILY #30 tab 03/10/24 Atorvastatin [Lipitor] 80 mg PO HS #30 tab 03/10/24 Dapagliflozin Propanediol [Farxiga] 10 mg PO DAILY #30 tab 03/10/24 Famotidine [Pepcid] 20 mg PO DAILY #30 tablet 03/10/24 Metoprolol Succinate (ER) [Toprol 25 mg PO DAILY #30 tab 03/10/24 XL] Ticagrelor [Brilinta] 90 mg PO BID #60 tab 03/10/24 lisinopriL [Zestril] 10 mg PO DAILY #30 tab 03/10/24 Allergies Allergy/AdvReac Type Severity Reaction Status Date / Time aspirin Allergy Per SCC Verified 03/29/24 21:23 Usp pregabalin [From Lyrica] AdvReac CHEST Verified 03/29/24 21:23 TIGHTENING EXCEDRIN AdvReac CHEST Uncoded 03/29/24 21:23 TIGHTENING Review of Systems ROS Other: All systems not noted in ROS Statement are negative. <Jacklyn Tyler - Last Filed: 03/29/24 21:37> ROS Other: All systems not noted in ROS Statement are negative. <Farzana Turner P - Last Filed: 03/29/24 23:55> ROS Statement: Those systems with pertinent positive or pertinent negative responses have been documented in the HPI. EKG Findings - EKG Comments: EKG Findings:: EKG interpreted by me EKG obtained due to complaint of chest pain EKG obtained at 2131 rate is 80 rhythm is sinus normal intervals WA 137 QRS [address] elevations in aVR and V1 and V2 with ST depressions in most other leads most prominent in the inferior and lateral leads. This EKG is concerning for acute ischemia. When this EKG was compared to EKG from March 12 which was done after the cardiac catheterization there are new significant ischemic changes. 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 Unsure if she has a leaky valve. History of Any Multi-Drug Resistant Organisms: None Reported Past Surgical History: Appendectomy, Section, Cholecystectomy, Heart Catheterization With Stent Additional Past Surgical History / Comment(s): CABG, Left knee surgeries, endometrosis surgery. stent x 1 Past Anesthesia/Blood Transfusion Reactions: No Reported Reaction Past Psychological History: Anxiety, Bipolar Smoking Status: Current every day smoker Past Drug Use History: Marijuana, Methamphetamine - Past Family History Mother Additional Family Medical History / Comment(s): Grandmother had a pacemaker Father Family Medical History: Cancer Additional Family Medical History / Comment(s): colon cancer, Breast cancer runs on his side of the family. <Jacklyn Tyler - Last Filed: 03/29/24 21:37> General Exam Limitations: no limitations <Jacklyn Tyler - Last Filed: 03/29/24 21:37> <Farzana Turner P - Last Filed: 03/29/24 23:55> - General Exam Comments Initial Comments: Physical Exam GENERAL: Patient is well-developed and well-nourished Patient is nontoxic and well-hydrated and is in no distress. HENT: Normocephalic, Atraumatic. EYES: PERRL, EOMI PULMONARY: Unlabored respirations CARDIOVASCULAR: RRR Warm and well perfused extremities ABDOMEN: Non-distended SKIN: No rashes or bruising : Deferred NEUROLOGIC: Alert and oriented Normal speech MUSCULOSKELETAL: Moving all extremities with no apparent injury PSYCHIATRIC: No SI/HI (Farzana Turner) Course Vital Signs 03/29/24 03/29/24 03/29/24 21:24 22:45 22:49 Temperature 98.2 F Pulse Rate 91 70 63 Respiratory 18 17 17 Rate Blood Pressure 186/114 161/86 161/86 O2 Sat by Pulse 99 98 98 Oximetry Chest Pain MDM <Farzana Turner - Last Filed: 03/29/24 23:55> - MDM Was pt. sent in by a medical professional or institution (, PA, WINDOW SASH INSTALLER, urgent care, hospital, or alf...) When possible be specific @ -Yes, sent by nurse at [facility] Did you speak to anyone other than the patient for history (EMS, parent, family, police, friend...)? What history was obtained from this source @ -No Did you review nursing and triage notes (agree or disagree)? Why? @ -I reviewed and agree with nursing and triage notes Were old charts reviewed (outside hosp., previous admission, EMS record, old EKG, old radiological studies, urgent care reports/EKG's, alf records)? Report findings @ -Previous hospitalization records, cardiac catheterization report and previous EKGs were reviewed Differential Diagnosis (chest pain, altered mental status, abdominal pain women, abdominal pain men, vaginal bleeding, weakness, fever, dyspnea, syncope, headache, dizziness, GI bleed, back pain, seizure, CVA, palpatations, mental health)? @ -Differential Chest Pain: Stable Angina, Unstable Angina, STEMI, NSTEMI Aortic Dissection, Pneumothorax, Musculoskeletal, Esophageal Spasm GERD, Cholecystitis, Pancreatitis, Zoster, this is not meant to be an all-inclusive list. EKG interpreted by me (3pts min.). @ -As above X-rays interpreted by me (1pt min.). @ -No acute findings CT interpreted by me (1pt min.). @ -None done U/S interpreted by me (1pt. min.). @ -None done What testing was considered but not performed or refused? (CT, X-rays, U/S, labs)? Why? @ -None What meds were considered but not given or refused? Why? @ -None Did you discuss the management of the patient with other professionals (professionals i.e. , PA, WINDOW SASH INSTALLER, lab, RT, psych nurse, social media job titles, polymerization oven operator, teacher, information technology officer, case picker)? Give summary @ -Discussed with Dr. Magaña and Dr. Rae Was smoking cessation discussed for >3mins.? @ -No Was critical care preformed (if so, how long)? @ -Yes, 15 minutes Were there social determinants of health that impacted care today? How? (Homelessness, low income, unemployed, alcoholism, drug addiction, transportation, low edu. Level, literacy, decrease access to med. care, [facility], rehab)? @ -Incarceration Was there de-escalation of care discussed even if they declined (Discuss DNR or withdrawal of care, Hospice)? DNR status @ -No What co-morbidities impacted this encounter? (DM, HTN, Smoking, COPD, CAD, Cancer, CVA, ARF, Chemo, Hep., AIDS, mental health diagnosis, sleep apnea, morbid obesity)? @ -CAD Was patient admitted / discharged? Hospital course, mention meds given and route, prescriptions, significant lab abnormalities, going to OR and other pertinent info. @ -Admit Patient was initially seen by LEONEL Villasenor who reviewed EKG and had concern for ischemic changes, I reviewed EKG and previous EKG and also had concern for acute ischemic changes. On evaluated the patient who is having active 10 out of 10 chest pain. I have concern for acute coronary syndrome versus acute stent occlusion, due to patient being incarcerated she is not in control of her own medications and cannot confirm whether or not she has gotten every dose of her dual antiplatelet therapy. Labs are ordered and I discussed patient care with Dr. Magaña who recommended activation of the cardiac Wall To Wall Carpet Installer, Wall To Wall Carpet Installer was activated at 2228. I then discussed care with Dr. Rae who agreed with plan for activation of the Wall To Wall Carpet Installer. Nitro, morphine, Lipitor and heparin were ordered here in the emergency department. Aspirin was not given due to patient's reported history of allergy. Awake alert and oriented until taken to the Wall To Wall Carpet Installer. Undiagnosed new problem with uncertain prognosis? @ -Yes Drug Therapy requiring intensive monitoring for toxicity (Heparin, Nitro, Insulin, Cardizem)? @ -Yes, heparin Were any procedures done? @ -No Diagnosis/symptom? @ -Acute coronary syndrome Acute, or Chronic, or Acute on Chronic? @ -Acute Uncomplicated (without systemic symptoms) or Complicated (systemic symptoms)? @ -Default Side effects of treatment? @ -No Exacerbation, Progression, or Severe Exacerbation? @ -No Poses a threat to life or bodily function? How? (Chest pain, [place], [place], pneumonia, PE, COPD, DKA, ARF, appy, cholecystitis, CVA, Diverticulitis, Homicidal, Suicidal, threat to staff... and all critical care pts) @ -Yes (Farzana Turner) Critical Care Time Critical Care Time: Yes Total Critical Care Time: 15 <Farzana Turner - Last Filed: 03/29/24 23:55> Disposition <Jacklyn Tyler - Last Filed: 03/29/24 21:37> Is patient prescribed a controlled substance at d/c from ED?: No <Farzana Turner - Last Filed: 03/29/24 23:55> Clinical Impression: ST elevation myocardial infarction (STEMI), ACS (acute coronary syndrome) Disposition: ADMITTED IP TO THIS HOSP Condition: Serious
[2024-03-29 21:51] LABS: Basophils # (A) 0.1 k/uL (0-0.2); Basophils % (A) 1 %; Eosinophils # (A) 0.3 k/uL (0-0.7); Eosinophils % (A) 4 %; HCT 43.2 % (34.0-46.0); HGB 14.5 gm/dL (11.4-16.0); Lymphocytes # (A) 2.9 k/uL (1.0-4.8); Lymphocytes % (A) 45 %; MCH 31.6 pg (25.0-35.0); MCHC 33.5 g/dL (31.0-37.0); MCV 94.3 fL (80.0-100.0); Mean Platelet Volume 8.3; Monocytes # (A) 0.5 k/uL (0-1.0); Monocytes % (A) 8 %; Neutrophils # (A) 2.6 k/uL (1.3-7.7); Neutrophils % (A) 40 %; Platelet Count 241 k/uL (150-450); RBC 4.59 m/uL (3.80-5.40); WBC 6.6 k/uL (3.8-10.6)
[2024-03-29 21:59] LABS: INR 0.9 (<1.2); Prothrombin Time 10.4 sec (10.0-12.5)
--- NOTE | 2024-03-29 22:01 | XR ---
EXAMINATION TYPE: XR chest 2V DATE OF EXAM: 03/29/2024 9:58 PM CLINICAL INDICATION:Female, 38 years old with history of Chest Pain; [facility] COMPARISON: Chest radiograph 03/07/2024 TECHNIQUE: XR chest 2V Frontal and lateral views of the chest. FINDINGS: Lungs/Pleura: There is no evidence of pleural effusion, focal consolidation, or pneumothorax. Pulmonary vascularity: Unremarkable. Heart/mediastinum: Cardiomediastinal silhouette is unremarkable. Musculoskeletal: No acute osseous pathology. Median sternotomy wires are identified. IMPRESSION: No acute cardiopulmonary disease/process. [facility] Shama Lara, , 03/29/2024 9:59 PM
[2024-03-29 22:11] LABS: ALT 31 U/L (4-34); AST 23 U/L (14-36); African American GFR (CKD) >90 (>60 ml/min/1.73 sqM); Albumin 4.7 g/dL (3.5-5.0); Alkaline Phosphatase 65 U/L (38-126); Anion Gap 6 mmol/L; Blood Urea Nitrogen 20 mg/dL (7-17); Calcium 9.3 mg/dL (8.4-10.2); Carbon Dioxide 21 mmol/L (22-30); Chloride 112 mmol/L (98-107); Glucose 101 mg/dL (74-99); Lipase 195 U/L (23-300); Magnesium 2.3 mg/dL (1.6-2.3); Non-African American GFR(CKD) >90 (>60 ml/min/1.73 sqM); Potassium 3.5 mmol/L (3.5-5.1); Sodium 139 mmol/L (137-145); Total Bilirubin 0.3 mg/dL (0.2-1.3); Total Protein 7.2 g/dL (6.3-8.2)
[2024-03-29] MEDS: HEPARIN SOD,PORK IN 0.45% NACL 25,000 UNIT in 0.45% NACL 1 250ML.BAG IV SCH (22:36)
[2024-03-29] MEDS: ONDANSETRON 4 MG/2 ML VIAL IVP STA (22:37)
[2024-03-29] MEDS: HEPARIN SODIUM 1,000 UN/ML (10ML VL) IV ONE ×2 (22:38→23:25)
[2024-03-29] MEDS: MORPHINE SULFATE 4 MG/ML SYRINGE IV STA (22:40)
[2024-03-29] MEDS: ATORVASTATIN 80 MG TAB PO STA (22:46)
[2024-03-29] MEDS: MIDAZOLAM 2 MG/2 ML VIAL IVP ONE (23:09)
[2024-03-29] MEDS: LIDOCAINE 1% INJ 10MG/ML (20 ML MDV) SQ ONE (23:09)
[2024-03-29] MEDS: fentaNYL (PF) 50 MCG/ML 2 ML AMP IVP ONE (23:09)
[2024-03-29] MEDS: IV FLUID CONTINUATION 1,000 ML IV ONE (23:09)
[2024-03-29] MEDS: MORPHINE SULFATE 4 MG/ML SYRINGE IVP ONE (23:12)
[2024-03-29] MEDS: VERAPAMIL SYRINGE (5 MG/10 ML) INTRAARTER ONE (23:12)
[2024-03-29] MEDS: TICAGRELOR 90 MG TAB PO ONE (23:25)
[2024-03-29] MEDS: IOPAMIDOL-370 100ML BTL INJ ONE (23:28)
[2024-03-29] MEDS: hydrALAZINE HCL 20 MG/ML 1 ML VIAL IV ONE (23:35)
[2024-03-30] MEDS: IOPAMIDOL-370 100ML BTL INJ ONE
[2024-03-30] MEDS ORDERED: MAG HYDROX/AL HYDROX/SIMETH 30 ML CUP PO PRN (00:02)
[2024-03-30] MEDS ORDERED: ATROPINE SULFATE 0.1 MG/ML 10ML SYRINGE IV PRN (00:02)
[2024-03-30] MEDS ORDERED: NITROGLYCERIN SL TABS 0.4 MG TAB SUBLINGUAL PRN (00:02)
[2024-03-30] MEDS ORDERED: RX INFO: IV CONTRAST WAS GIVEN 1 EACH MISC MISCELLANE PRN (00:02)
[2024-03-30] MEDS ORDERED: ZOLPIDEM 5 MG TAB PO PRN (00:02)
--- NOTE | 2024-03-30 00:12 | P.PCN ---
Date of Procedure: 03/30/24 Operative Findings: CARDIAC CATHETERIZATION AND PERCUTANEOUS CORONARY INTERVENTION PERFORMING PHYSICIAN: Mk Whalen MD, [facility] PROCEDURE PERFORMED: 1. Selective right and left coronary angiogram 2. Left heart catheterization 3. Successful stenting of OM1 using 2.25 x 12 mm Xience ISAAC with an excellent angiographic results and reduction of stenosis from 99% to 0% 4. Successful stenting of the mid RCA using 4.0 x 28 mm Xience ISAAC with an excellent angiographic results and reduction of stenosis from 70% to 0% 5. Adjunctive use of IVUS and Dobler wire 6. Ultrasound-guided access of the right radial artery INDICATION: Chest discomfort concerning for unstable angina associated with ischemic ST changes in this 38-year-old female patient who is known to have CAD with prior stenting of the LAD COMPLICATION: None APPROACH: Right radial artery LEVEL OF SEDATION: Moderate with the sedation time off 55 minutes PROCEDURE DESCRIPTION: After obtaining informed consent the patient was brought to the cardiac Pull Tab Dealer. The right radial artery was cannulated using micropuncture technique under ultrasound guidance a micropuncture wire passed easily then I placed a 6 Scottish 11 cm sheath at the right radial artery and give the patient additional 2000 heparin in addition to the previous heparin was given in the emergency department along with 2 mg of verapamil intra-arterial. Subsequently I did selective right and left coronary angiogram using JR4 and JL 3.5 catheters. Left heart catheterization was performed using the JR4 catheter which crossed the aortic valve. After that I decided to intervene on the first obtuse marginal branch of the left circumflex. Anticoagulation was initiated with heparin with ACT monitoring and subsequently I did engage the left main using JL 3.5 guiding catheter with I did wire OM1 using a whisper wire. Predilatation was performed using 2 mm balloon before I deployed 2.25 x 12 mm with final angiogram showing excellent angiographic results. Subsequently we decided to do an IFR of the RCA so after zeroing Dobler wire and equalizing between the Dobler wire and guiding catheter which was JR4 guiding catheter the RCA was engaged and subsequently wired with IFR came to be at 0.88. Xience ISAAC where the stent was positioned under fluoroscopy guidance and deployed under fluoroscopy guidance and postdilated using 2.5 mm NC balloon at that point I decided to intervene on the RCA. I did intravascular ultrasound IVUS which showed a diameter around 4 mm with noncalcified lesions and for that reason I did direct stenting of the RCA using 4.0 x 28 mm Xience ISAAC where the stent was positioned under fluoroscopy guidance and deployed under fluoroscopy guidance and subsequently a postdilated using 4.5 mm NC balloon. Final angiogram was performed showed good angiographic results and final IVUS showed that the stent was well opposed and well-expanded. The procedure was completed with no complication SELECTIVE CORONARY ANGIOGRAM: The right coronary artery: Large caliber vessel with intermediate to severe lesion involving the midportion documented to be flow-limiting by Doppler wire Left main: Is angiographically normal. The left circumflex: Large caliber vessel nondominant vessel with critical disease involving OM1 The left anterior descending artery: Large caliber vessel with patent stent in the mid portion and the LAD gives rise into multiple diagonal branches all appear to have mild disease only HEMODYNAMICS: The LVEDP was 5 mmHg with no significant gradient across aortic valve CONCLUSION: 1. Patent stent in the mid LAD 2. Critical disease involving OM1. I performed successful PCI of OM1 with an excellent angiographic results 3. Intermediate to severe disease involving the RCA documented to be flow- limiting by Doppler wire. I did perform PCI of the RCA with an excellent angiographic results as well 4. Low left-sided filling pressure POSTPROCEDURE MANAGEMENT: 1. Dual antiplatelet therapy using aspirin and Brilinta for 12 month 2. Aggressive cholesterol control 3. Follow-up with the patient
--- NOTE | 2024-03-30 00:20 | P.CRDCN ---
History of Present Illness Consult date: 03/30/24 History of present illness: The patient is a 38-year-old female patient with a past medical history significant for CAD with prior stenting of the LAD was performed few weeks ago as well as hypertension and dyslipidemia and history of cardiomyopathy with a EF between 35 to 40% as well as history of mediastinal tumor removal presented to the emergency department complaining of chest discomfort. The patient is incarcerated. She presented to the hospital few weeks ago with a chest discomfort and before that she had another admission with a chest discomfort where a heart catheterization was advised initially and she refused but she agreed to undergo the heart catheterization the second time. The heart catheterization revealed intermediate disease involving the RCA and severe disease involving the LAD where at that point she underwent PCI of the LAD with a good angiographic results and she was discharged to the present in stable medical condition. This time she was brought again with ongoing chest discomfort started within the last 12 hours associated with ischemic ST and T wave abnormalities on the EKG concerning for angina. Given her previous history and the EKG changes and the chest discomfort a heart catheterization was advised. The patient underwent an emergent heart catheterization which revealed patent stent in the mid LAD with critical disease involving the first obtuse marginal branch of the left circumflex which I did perform PCI with a good angiographic results and also she was found to have intermediate to severe disease involving the RCA where I did perform an IFR on it and that came to be flow-limiting. I did perform PCI of the RCA. The patient tolerated the procedure very well. Beside the chest discomfort she reports no shortness of breath or dizziness or lightheadedness or any feeling of heart racing or fluttering or presyncope or syncope. The EKG showed sinus mechanism with ST changes concerning for angina. The first set of troponin came in to be unremarkable. The rest of the blood work came in to be unremarkable. The chest x-ray did not show any acute abnormalities. 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 Unsure if she has a leaky valve. History of Any Multi-Drug Resistant Organisms: None Reported Past Surgical History: Appendectomy, Section, Cholecystectomy, Heart Catheterization With Stent Additional Past Surgical History / Comment(s): CABG, Left knee surgeries, endometrosis surgery. stent x 1 Past Anesthesia/Blood Transfusion Reactions: No Reported Reaction Past Psychological History: Anxiety, Bipolar Smoking Status: Current every day smoker Past Drug Use History: Marijuana, Methamphetamine - Past Family History Mother Additional Family Medical History / Comment(s): Grandmother had a pacemaker Father Family Medical History: Cancer Additional Family Medical History / Comment(s): colon cancer, Breast cancer runs on his side of the family. Medications and Allergies Home Medications Medication Instructions Recorded Confirmed Type Aspirin 81 mg PO DAILY #30 tab 03/10/24 Rx Atorvastatin [Lipitor] 80 mg PO HS #30 tab 03/10/24 Rx Dapagliflozin Propanediol [Farxiga] 10 mg PO DAILY #30 tab 03/10/24 Rx Famotidine [Pepcid] 20 mg PO DAILY #30 tablet 03/10/24 Rx Metoprolol Succinate (ER) [Toprol 25 mg PO DAILY #30 tab 03/10/24 Rx XL] Ticagrelor [Brilinta] 90 mg PO BID #60 tab 03/10/24 Rx lisinopriL [Zestril] 10 mg PO DAILY #30 tab 03/10/24 Rx Allergies Allergy/AdvReac Type Severity Reaction Status Date / Time aspirin Allergy Per SCC Verified 03/29/24 21:23 Usp pregabalin [From Lyrica] AdvReac CHEST Verified 03/29/24 21:23 TIGHTENING EXCEDRIN AdvReac CHEST Uncoded 03/29/24 21:23 TIGHTENING Physical Exam Vitals: Vital Signs Temp Pulse Resp BP Pulse Ox 03/29/24 22:49 63 17 161/86 98 03/29/24 22:45 70 17 161/86 98 03/29/24 21:24 98.2 F 91 18 186/114 99 Intake and Output 03/29/24 03/29/24 03/30/24 14:59 22:59 06:59 Intake Total 250 Balance 250 Intake: IV 250 Other: Weight 63.049 kg Results 03/29/24 21:40 03/29/24 21:40 Cardiac Enzymes 03/29/24 03/29/24 Range/Units 21:40 21:40 AST 23 (14-36) U/L Troponin I <0.012 (0.000-0.034) ng/mL Coagulation 03/29/24 Range/Units 21:40 PT 10.4 (10.0-12.5) sec APTT 23.0 (22.0-30.0) sec CBC 03/29/24 Range/Units 21:40 WBC 6.6 (3.8-10.6) k/uL RBC 4.59 (3.80-5.40) m/uL Hgb 14.5 (11.4-16.0) gm/dL Hct 43.2 (34.0-46.0) % Plt Count 241 (150-450) k/uL Comprehensive Metabolic Panel 03/29/24 Range/Units 21:40 Sodium 139 (137-145) mmol/L Potassium 3.5 (3.5-5.1) mmol/L Chloride 112 H (98-107) mmol/L Carbon Dioxide 21 L (22-30) mmol/L BUN 20 H (7-17) mg/dL Creatinine 0.73 (0.52-1.04) mg/dL Glucose 101 H (74-99) mg/dL Calcium 9.3 (8.4-10.2) mg/dL AST 23 (14-36) U/L ALT 31 (4-34) U/L Alkaline Phosphatase 65 (38-126) U/L Total Protein 7.2 (6.3-8.2) g/dL Albumin 4.7 (3.5-5.0) g/dL Current Medications Generic Name Dose Route Start Last Admin Trade Name Freq PRN Reason Stop Dose Admin Al Hydroxide/Mg Hydroxide 30 ml 03/30/24 00:02 Mag Hydrox/Al Hydrox/Simeth 30 Ml Cup PO Q4HR PRN Heartburn Aspirin 81 mg 03/30/24 09:00 Aspirin 81 Mg PO DAILY SANDY Atorvastatin Calcium 40 mg 03/30/24 21:00 Atorvastatin 40 Mg Tab PO HS SANDY Atropine Sulfate 0.5 mg 03/30/24 00:02 Atropine Sulfate 0.1 Mg/Ml 10ml Syringe IV ONCE PRN Symptomatic Bradycardia Sodium Chloride 1,000 mls @ 75 mls/hr 03/29/24 22:24 Saline 0.9% IV 03/30/24 11:43 .[id number] STA Heparin Sodium/Sodium Chloride 250 mls @ 7.566 mls/hr 03/29/24 22:30 03/29/24 22:36 25,000 unit/ Sodium Chloride IV 12 units/kg/hr .Q24H SANDY 7.566 mls/hr Administration Protocol 12 UNITS/KG/HR Sodium Chloride 1,000 ml/ IV 1,000 mls @ 75 mls/hr 03/30/24 00:15 Solution IV 03/30/24 06:14 .[id number] SANDY Lisinopril 10 mg 03/30/24 09:00 Lisinopril 10 Mg Tab PO DAILY [facility] Metoprolol Tartrate 25 mg 03/30/24 09:00 Metoprolol Tartrate 25 Mg Tab PO BID [facility] Metoprolol Tartrate 25 mg 03/30/24 09:00 Metoprolol Tartrate 25 Mg Tab PO BID [facility] Miscellaneous Information 1 each 03/30/24 00:02 Rx Info: Iv Contrast Was Given 1 Each Misc MISCELLANE 04/01/24 00:02 DAILY PRN Per Protocol Nitroglycerin 0.4 mg 03/30/24 00:02 Nitroglycerin Sl Tabs 0.4 Mg Tab SUBLINGUAL Q5M PRN Chest Pain Ticagrelor 90 mg 03/30/24 09:00 Ticagrelor 90 Mg Tab PO BID [facility] Protocol Zolpidem Tartrate 5 mg 03/30/24 00:02 Zolpidem 5 Mg Tab PO HS PRN Insomnia Intake and Output 03/29/24 03/29/24 03/30/24 14:59 22:59 06:59 Intake Total 250 Balance 250 Intake: IV 250 Other: Weight 63.049 kg Patient Weight 03/30/24 06:59 Weight 63.049 kg 03/29/24 21:40 03/29/24 21:40
[2024-03-30 00:21] LABS: Glucose,Whole Blood 101 mg/dL (70-110)
[2024-03-30] MEDS: SODIUM CHLORIDE 0.9% 1,000 ML IV STA (02:14)
[2024-03-30] MEDS: SODIUM CHLORIDE 0.9% 1,000 ML in EMPTY BAG 1 BAG IV SCH (03:15)
[2024-03-30 05:48] LABS: Basophils % (A) 0 %; Eosinophils # (A) 0.2 k/uL (0-0.7); Eosinophils % (A) 2 %; HCT 42.4 % (34.0-46.0); HGB 13.9 gm/dL (11.4-16.0); Lymphocytes % (A) 26 %; MCH 31.4 pg (25.0-35.0); MCHC 32.9 g/dL (31.0-37.0); MCV 95.3 fL (80.0-100.0); Mean Platelet Volume 8.5; Monocytes # (A) 0.5 k/uL (0-1.0); Monocytes % (A) 6 %; Neutrophils % (A) 64 %; Platelet Count 238 k/uL (150-450); RBC 4.45 m/uL (3.80-5.40); RDW 13.1 % (11.5-15.5); WBC 7.9 k/uL (3.8-10.6)
[2024-03-30 06:04] LABS: African American GFR (CKD) >90 (>60 ml/min/1.73 sqM); Anion Gap 7 mmol/L; Blood Urea Nitrogen 17 mg/dL (7-17); Carbon Dioxide 21 mmol/L (22-30); Chloride 110 mmol/L (98-107); Glucose 117 mg/dL (74-99); Potassium 3.8 mmol/L (3.5-5.1); Sodium 138 mmol/L (137-145)
[2024-03-30 06:05] LABS: Calcium 9.1 mg/dL (8.4-10.2); Non-African American GFR(CKD) >90 (>60 ml/min/1.73 sqM)
[2024-03-30] MEDS: ACETAMINOPHEN TAB 325 MG TAB PO PRN (06:23)
[2024-03-30] MEDS ORDERED: METOPROLOL TARTRATE 25 MG TAB PO SCH (09:00)
[2024-03-30 09:10] VITALS: BMI 24.3
[2024-03-30] MEDS: lisinopriL 10 MG TAB PO SCH (09:16)
[2024-03-30] MEDS: TICAGRELOR 90 MG TAB PO SCH (09:16)
[2024-03-30] MEDS: ASPIRIN 81 MG PO SCH (09:16)
[2024-03-30] MEDS: METOPROLOL TARTRATE 25 MG TAB PO SCH (09:16)
--- NOTE | 2024-03-30 11:34 | CA ---
Transthoracic Echo Report Name: Doris Cordero Age: 38 Gender: F : 1985 Exam Date: 03/30/2024 08:30 Exam Location: [place] [facility] Ht (in): 63 Wt (lb): 139 Ordering Physician: Mk Whalen MD ([id number]) Attending/Referring Phys: Corporate Associate Elin Wright RDCS Procedure CPT: Indications: ACS Cardiac Hx: Limited for function. Stent placed last month, 2 more placed yesterday. Technical Quality: Fair Contrast 1: Total Dose (mL): Contrast 2: Total Dose (mL): MEASUREMENTS (Male / Female) Normal Values 2D ECHO LV Diastolic Diameter PLAX 4.3 cm 4.2 - 5.9 / 3.9 - 5.3 cm LV Systolic Diameter PLAX 3.3 cm IVS Diastolic Thickness 1.6 cm 0.6 - 1.0 / 0.6 - 0.9 cm LVPW Diastolic Thickness 1.2 cm 0.6 - 1.0 / 0.6 - 0.9 cm LV Relative Wall Thickness 0.6 LVOT Diameter 2.0 cm LV Diastolic Volume MOD BP 117.6 cm??? 67 - 155 / 56 - 104 cm??? LV Systolic Volume MOD BP 58.6 cm??? 22 - 58 / 19 - 49 cm??? LV Ejection Fraction MOD BP 50.1 % >= 55 % LV Cardiac Index MOD BP 2973.2 cm???/min???m??? LV Diastolic Volume MOD 4C 130.2 cm??? LV Systolic Volume MOD 4C 64.0 cm??? LV Ejection Fraction MOD 4C 50.8 % LV Cardiac Index MOD 4C 3340.9 cm???/min???m??? LV Diastolic Length 4C 8.7 cm LV Systolic Length 4C 7.1 cm LV Diastolic Volume MOD 2C 104.5 cm??? LV Systolic Volume MOD 2C 53.3 cm??? LV Ejection Fraction MOD 2C 49.0 % LV Cardiac Index MOD 2C 2584.7 cm???/min???m??? LV Diastolic Length 2C 8.6 cm LV Systolic Length 2C 7.2 cm M-MODE LV Diastolic Diameter MM 4.3 cm 4.2 - 5.9 / 3.9 - 5.3 cm LV Systolic Diameter MM 3.2 cm LV Cardiac Index MM Trevorich 2217.4 cm???/min???m??? IVS Diastolic Thickness MM 1.7 cm 0.6 - 1.0 / 0.6 - 0.9 cm LVPW Diastolic Thickness MM 1.4 cm 0.6 - 1.0 / 0.6 - 0.9 cm LV Relative Wall Thickness MM 0.7 0.24 - 0.42 / 0.22 - 0.42 LV Mass Index MM 167.7 g/m??? 49 - 115 / 43 - 95 g/m??? DOPPLER AV Peak Velocity 184.3 cm/s AV Peak Gradient 13.6 mmHg AV Mean Velocity 122.4 cm/s AV Mean Gradient 7.0 mmHg AV Velocity Time Integral 29.7 cm LVOT Peak Velocity 140.9 cm/s LVOT Peak Gradient 7.9 mmHg LVOT Velocity Time Integral 21.0 cm LVOT Stroke Volume 63.3 cm??? LVOT Stroke Volume Index 38.2 ml/m??? LVOT Cardiac Index 3193.3 cm???/min???m??? AV Area Cont Eq vti 2.1 cm??? AV Area Cont Eq pk 2.3 cm??? PV Peak Velocity 107.7 cm/s PV Peak Gradient 4.6 mmHg FINDINGS Left Ventricle Left ventricular ejection fraction is estimated at 55 %. Severely increased left ventricular mass. Moderately increased septal wall thickness. Mildly increased posterior wall thickness. Mildly decreased fractional shortening. . Mildly increased left ventricular diastolic volume. Mildly increased left ventricular systolic volume. Severely increased left ventricular relative wall thickness. Right Ventricle Normal right ventricular size and function. Unable to estimate the right ventricular systolic pressure. Right Atrium Normal right atrial size. Left Atrium Left atrial dilatation by visual estimate. Mitral Valve Structurally normal mitral valve. No evidence for mitral valve prolapse. No mitral stenosis. Trace mitral regurgitation. Aortic Valve Aortic valve not well visualized. No aortic valve stenosis or regurgitation. Tricuspid Valve Structurally normal tricuspid valve. No tricuspid stenosis. Trace tricuspid regurgitation. Pulmonic Valve Pulmonic valve not well visualized. No pulmonic stenosis. No pulmonic regurgitation. Pericardium No pericardial effusion. Aorta Aortic root and proximal ascending aorta not assessed. CONCLUSIONS Normal LV size preserved systolic function moderate concentric LVH minimal mitral and tricuspid regurgitation no pericardial effusion. Right-sided pressures are not well quantified Previewed by: Dr. Sunny Robison MD (Electronically Signed) Final Date: 30 March 2024 11:33
--- NOTE | 2024-03-30 14:49 | P.HPIM ---
History of Present Illness H&P Date: 03/30/24 History of present illness; patient is a 38-year-old lady with past medical history significant for coronary artery disease presented to the ER for chest pain. Patient stated that she was incarcerated and did receive her antiplatelet medication for a few days. Patient was all right yesterday when started noticing chest pain that was central, crushing,, nonradiating, no aggravating or relieving factor associated chest pain, associated with with shortness of breath. Patient denies any nausea or vomiting. Patient in in the chair was found to be hypertensive with blood pressure in her 230s over 130s, patient received nitroglycerin and was sent to the ER Initial lab work done in the ER showed 6.6, hemoglobin 14.5, platelet count 241, sodium 139, potassium 3.5, BUN 20, creatinine 0.73, glucose 101 troponin 0.012 lipase 195 Chest x-ray done in the ER showed no acute cardio pulmonary process EKG showed ischemic changes and Recruiting Coordinator was activated and patient went for emergent cardiac cath. Patient underwent Successful stenting of OM1 using 2.25 x 12 mm Xience ISAAC with an excellent angiographic results and reduction of stenosis from 99% to 0% and Successful stenting of the mid RCA Patient admitted to internal medicine service REVIEW OF SYSTEMS: CONSTITUTIONAL: No fever, no malaise, no fatigue. HEENT: No recent visual problems or hearing problems. Denied any sore throat. CARDIOVASCULAR: As mentioned above PULMONARY: As mentioned above GASTROINTESTINAL: No diarrhea, no nausea, no vomiting, no abdominal pain. NEUROLOGICAL: No headaches, no weakness, no numbness. HEMATOLOGICAL: Denies any bleeding or petechiae. GENITOURINARY: Denies any burning micturition, frequency, or urgency. MUSCULOSKELETAL/RHEUMATOLOGICAL: Denies any joint pain, swelling, or any muscle pain. ENDOCRINE: Denies any polyuria or polydipsia. The rest of the 14-point review of systems is negative. PHYSICAL EXAMINATION: GENERAL: The patient is alert and oriented x3, not in any acute distress. Well developed, well nourished. HEENT: Pupils are round and equally reacting to light. EOMI. No scleral icterus. No conjunctival pallor. Normocephalic, atraumatic. No pharyngeal erythema. No thyromegaly. CARDIOVASCULAR: S1 and S2 present. No murmurs, rubs, or gallops. PULMONARY: Chest is clear to auscultation, no wheezing or crackles. ABDOMEN: Soft, nontender, nondistended, normoactive bowel sounds. No palpable organomegaly. MUSCULOSKELETAL: No joint swelling or deformity. EXTREMITIES: No cyanosis, clubbing, or pedal edema. NEUROLOGICAL: Gross neurological examination did not reveal any focal deficits. SKIN: No rashes. Assessment and plan Acute coronary syndrome CAD with prior PCI of the LAD Cardiomyopathy with a EF between 35 to 40% Hypertension Hyperlipidemia Monitor vital signs Monitor CBC Monitor CMP Continue telemetry monitoring Successful stenting of OM1 using 2.25 x 12 mm Xience ISAAC with an excellent angiographic results and reduction of stenosis from 99% to 0% and Successful stenting of the mid RCA Ordered aspirin, Lipitor, Brilinta Ordered 2D echo Post cardiac cath care per cardiology Patient to be monitored in the ICU Labs and medication were reviewed.. Continue same treatment. Continue with symptomatic treatment. Resume home medication. Monitor labs and vitals. DVT and GI prophylaxis. Further recommendations as per clinical course of the patient Dictation was produced using [employer] dictation software. please excuse any gram matical, word or spelling errors. 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 Unsure if she has a leaky valve. History of Any Multi-Drug Resistant Organisms: None Reported Past Surgical History: Appendectomy, Section, Cholecystectomy, Heart Catheterization With Stent Additional Past Surgical History / Comment(s): CABG, Left knee surgeries, endometrosis surgery. stent x 1 Past Anesthesia/Blood Transfusion Reactions: No Reported Reaction Date of Last Stent Placement:: 03/29/24 Past Psychological History: Anxiety, Bipolar Smoking Status: Current every day smoker Past Drug Use History: Marijuana, Methamphetamine - Past Family History Mother Additional Family Medical History / Comment(s): Grandmother had a pacemaker Father Family Medical History: Cancer Additional Family Medical History / Comment(s): colon cancer, Breast cancer runs on his side of the family. Medications and Allergies Home Medications Medication Instructions Recorded Confirmed Type Atorvastatin [Lipitor] 80 mg PO HS #30 tab 03/10/24 03/30/24 Rx Dapagliflozin Propanediol [Farxiga] 10 mg PO DAILY #30 tab 03/10/24 03/30/24 Rx Famotidine [Pepcid] 20 mg PO DAILY #30 tablet 03/10/24 03/30/24 Rx Ticagrelor [Brilinta] 90 mg PO BID #60 tab 03/10/24 03/30/24 Rx Albuterol Nebulized [Ventolin 2.5 mg INHALATION RT-BID PRN 03/30/24 03/30/24 History Nebulized] Aspirin 81 mg PO HS 03/30/24 03/30/24 History Ibuprofen [Motrin Ib] 600 mg PO BID PRN 03/30/24 03/30/24 History Metoprolol Tartrate [Lopressor] 25 mg PO BID 03/30/24 03/30/24 History lisinopriL [Prinivil] 20 mg PO DAILY 03/30/24 03/30/24 History Allergies Allergy/AdvReac Type Severity Reaction Status Date / Time pregabalin [From Lyrica] AdvReac CHEST Verified 03/30/24 08:09 TIGHTENING EXCEDRIN AdvReac CHEST Uncoded 03/29/24 21:23 TIGHTENING Physical Exam Vitals: Vital Signs Temp Pulse Pulse Resp BP BP Pulse Ox 03/30/24 11:00 81 12 120/72 98 03/30/24 10:00 80 12 127/76 97 03/30/24 09:00 81 3 L 124/68 97 03/30/24 08:00 98.5 F 88 16 137/81 96 03/30/24 07:00 78 15 130/76 96 03/30/24 06:00 77 13 140/84 98 03/30/24 05:00 71 6 L 125/73 99 03/30/24 04:00 98.9 F 71 11 L 116/72 99 03/30/24 03:00 75 11 L 98 03/30/24 02:45 71 10 L 98 03/30/24 02:30 68 10 L 98 03/30/24 02:15 78 8 L 113/69 97 03/30/24 02:00 77 10 L 98 03/30/24 01:45 71 14 124/75 98 03/30/24 01:30 77 8 L 98 03/30/24 01:15 74 11 L 85/47 98 03/30/24 01:00 64 10 L 98 03/30/24 00:50 86 8 L 125/73 97 03/30/24 00:47 87 12 125/73 98 03/30/24 00:40 92 6 L 156/82 99 03/30/24 00:32 93 156/82 98 03/30/24 00:30 98.0 F 94 16 163/92 98 03/30/24 00:20 163/92 03/30/24 00:17 98.0 F 97 12 163/92 98 03/29/24 22:49 63 17 161/86 98 03/29/24 22:45 70 17 161/86 98 03/29/24 21:24 98.2 F 91 18 186/114 99 Intake and Output 03/29/24 03/30/24 03/30/24 22:59 06:59 14:59 Intake Total 700 Output Total 700 0 Balance 0 0 Intake: IV 700 Sodium Chloride 0.9% 1, 450 000 ml In Empty Bag 1 bag @ 75 mls/hr IV .[id number] Rx#:[id number] Output: Urine 700 0 Other: Voiding Method Toilet Toilet Weight 63.049 kg 62.3 kg 62.3 kg Results CBC & Chem 7: 03/30/24 05:35 03/30/24 05:35 Labs: Abnormal Lab Results - Last 24 Hours (Table) 03/29/24 03/30/24 03/30/24 Range/Units 21:40 05:35 05:35 Chloride 112 H 110 H (98-107) mmol/L Carbon Dioxide 21 L 21 L (22-30) mmol/L BUN 20 H (7-17) mg/dL Glucose 101 H 117 H (74-99) mg/dL Troponin I 0.035 H* (0.000-0.034) ng/mL 03/30/24 Range/Units 08:07 Chloride (98-107) mmol/L Carbon Dioxide (22-30) mmol/L BUN (7-17) mg/dL Glucose (74-99) mg/dL Troponin I 0.122 H* (0.000-0.034) ng/mL Thrombosis Risk Factor Assmnt - Choose All That Apply Any of the Below Risk Factors Present?: Yes Each Factor Represents 1 point: Acute ME Each Risk Factor Represents 3 Points: Positive Lupus Anticoagulant Thrombosis Risk Factor Assessment Total Risk Factor Score: 4 Thrombosis Risk Factor Assessment Level: Moderate Risk
[2024-03-30 15:28] LABS: Chol/HDL Ratio 2.05 Ratio; LDL Cholesterol,Calculated 27.4 mg/dL (0.0-131.0); VLDL Calculation 19.32 mg/dL (5.00-40.00)
[2024-03-30] MEDS: BUTALB/APAP/CAFF 50-325-40MG TAB PO PRN (15:47)
[2024-03-30] MEDS: ATORVASTATIN 40 MG TAB PO SCH (21:07)
--- NOTE | 2024-03-30 21:48 | P.PN ---
Subjective Progress Note Date: 03/30/24 Patient is a 38-year-old female who presented to the emergency room with unstable angina. She underwent coronary angiogram where she received stenting to the OM1 and RCA. Patient was interviewed and examined resting comfortably in bed. She complains of having a headache but is chest pain-free. No difficulty breathing. GENERAL: Well-appearing, well-nourished and in no acute distress. NECK: Supple without JVD or thyromegaly. LUNGS: Breath sounds clear to auscultation bilaterally. Respiration equal and unlabored. No wheezes, rales or rhonchi. HEART: Regular rate and rhythm without murmurs, rubs or gallops. S1 and S2 heard. EXTREMITIES: Normal range of motion, no edema. No clubbing or cyanosis. Peripheral pulses intact and strong. Right radial site has +2 pulse. 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 Objective - Vital Signs Vital signs: Vital Signs Temp 98.5 F 03/30/24 15:42 Pulse 76 03/30/24 15:42 Resp 16 03/30/24 15:42 BP 158/94 03/30/24 15:42 Pulse Ox 99 03/30/24 15:42 FiO2 Intake & Output 03/30/24 03/30/24 03/31/24 06:59 18:59 06:59 Intake Total 700 462 Output Total 700 0 Balance 0 462 Weight 62.3 kg 62.3 kg Intake: IV 700 Sodium Chloride 0.9% 1, 450 000 ml In Empty Bag 1 bag @ 75 mls/hr IV .[id number] [facility] Rx#:[id number] Oral 462 Output: Urine 700 0 Other: Voiding Method Toilet Toilet # Voids 1 - Labs CBC & Chem 7: 03/30/24 05:35 03/30/24 05:35 Labs: Abnormal Lab Results - Last 24 Hours (Table) 03/29/24 03/30/24 03/30/24 Range/Units 21:40 05:35 05:35 Chloride 112 H 110 H (98-107) mmol/L Carbon Dioxide 21 L 21 L (22-30) mmol/L BUN 20 H (7-17) mg/dL Glucose 101 H 117 H (74-99) mg/dL Troponin I 0.035 H* (0.000-0.034) ng/mL 03/30/24 Range/Units 08:07 Chloride (98-107) mmol/L Carbon Dioxide (22-30) mmol/L BUN (7-17) mg/dL Glucose (74-99) mg/dL Troponin I 0.122 H* (0.000-0.034) ng/mL
[2024-03-31 07:12] LABS: African American GFR (CKD) >90 (>60 ml/min/1.73 sqM); Non-African American GFR(CKD) >90 (>60 ml/min/1.73 sqM)
--- NOTE | 2024-03-31 13:04 | P.PN ---
Subjective Progress Note Date: 03/31/24 This is Nj Delaney NP, I'm dictating on behalf of Dr. Scott's H&P and A&P. Patient was interviewed and examined. Patient is a pleasant 38-year-old female who presented to the hospital with acute coronary syndrome, and is status post stenting to the OM1 and RCA. Patient reports that she is doing okay today. She is denying chest pain and shortness of breath. She generally feels well. GENERAL: Well-appearing, well-nourished and in no acute distress. NECK: Supple without JVD or thyromegaly. LUNGS: Breath sounds clear to auscultation bilaterally. Respiration equal and unlabored. No wheezes, rales or rhonchi. HEART: Regular rate and rhythm without murmurs, rubs or gallops. S1 and S2 heard. EXTREMITIES: Normal range of motion, no edema. No clubbing or cyanosis. Peripheral pulses intact and strong. VITALS: Temp 98.9, pulse 76, respirations 16, blood pressure 124/73, O2 saturation 97% on room air TELEMETRY: Sinus mechanism LABS: White count 7.9, hemoglobin 13.9, platelets 238, sodium 138, potassium 3.8, BUN 17, creatinine 0.73, triglycerides 96.6, cholesterol 91, LDL 27.4, HDL 44.3 IMPRESSION: 1. Unstable angina 2. CAD with prior PCI of the LAD 3. Status post PCI of the OM1 and RCA 4. Cardiomyopathy with an EF between 35 to 40% 5. History of mediastinal tumor removal 6. Hypertension 7. Dyslipidemia PLAN: Increase metoprolol to 50 mg twice daily. Patient should get out of bed and sit in the chair. She should ambulate in the room. If the patient continues to remain stable, she may be discharged tomorrow. Objective - Vital Signs Vital signs: Vital Signs Temp 99 F 03/31/24 11:29 Pulse 72 03/31/24 11:29 Resp 16 03/31/24 11:29 BP 141/82 03/31/24 11:29 Pulse Ox 97 03/31/24 11:29 FiO2 Intake & Output 03/30/24 03/31/24 03/31/24 18:59 06:59 18:59 Intake Total 462 118 Output Total 0 Balance 462 118 Weight 62.3 kg 62.3 kg Intake: Oral 462 118 Output: Urine 0 Other: Voiding Method Toilet Toilet Toilet # Voids 1 1 - Labs CBC & Chem 7: 03/30/24 05:35 03/31/24 06:32
--- NOTE | 2024-03-31 13:20 | P.PN ---
Subjective Progress Note Date: 03/31/24 patient is a 38-year-old lady with past medical history significant for coronary artery disease presented to the ER for chest pain. Patient stated that she was incarcerated and did receive her antiplatelet medication for a few days. Patient was all right yesterday when started noticing chest pain that was central, crushing,, nonradiating, no aggravating or relieving factor associated chest pain, associated with with shortness of breath. Patient denies any nausea or vomiting. Patient in in the chair was found to be hypertensive with blood pressure in her 230s over 130s, patient received nitroglycerin and was sent to the ER Initial lab work done in the ER showed 6.6, hemoglobin 14.5, platelet count 241, sodium 139, potassium 3.5, BUN 20, creatinine 0.73, glucose 101 troponin 0.012 lipase 195 Chest x-ray done in the ER showed no acute cardio pulmonary process EKG showed ischemic changes and Paperhanger And Painter was activated and patient went for emergent cardiac cath. Patient underwent Successful stenting of OM1 using 2.25 x 12 mm Xience ISAAC with an excellent angiographic results and reduction of stenosis from 99% to 0% and Successful stenting of the mid RCA Patient admitted to internal medicine service 03/31. Patient seen and examined. Temperature 98, heart rate 68, respirations 16, blood pressure 130/84. Denies any chest pain or shortness of breath REVIEW OF SYSTEMS: CONSTITUTIONAL: No fever, no malaise,. CARDIOVASCULAR: No chest pain, no palpitations, no syncope. PULMONARY: No shortness of breath, no cough, GASTROINTESTINAL: No diarrhea, no nausea, no vomiting, no abdominal pain. NEUROLOGICAL: No headaches, no weakness, PHYSICAL EXAMINATION: GENERAL: The patient is alert and oriented x3, not in any acute distress. Well developed, well nourished. HEENT: Pupils are round and equally reacting to light. EOMI. No scleral icterus. No conjunctival pallor. Normocephalic, atraumatic. No pharyngeal erythema. No thyromegaly. CARDIOVASCULAR: S1 and S2 present. No murmurs, rubs, or gallops. PULMONARY: Chest is clear to auscultation, no wheezing or crackles. ABDOMEN: Soft, nontender, nondistended, normoactive bowel sounds. No palpable organomegaly. MUSCULOSKELETAL: No joint swelling or deformity. EXTREMITIES: No cyanosis, clubbing, or pedal edema. NEUROLOGICAL: Gross neurological examination did not reveal any focal deficits. SKIN: No rashes. Assessment and plan Acute coronary syndrome CAD with prior PCI of the LAD Cardiomyopathy with a EF between 35 to 40% Hypertension Hyperlipidemia Monitor vital signs Monitor CBC Monitor CMP Continue telemetry monitoring Successful stenting of OM1 using 2.25 x 12 mm Xience ISAAC with an excellent angiographic results and reduction of stenosis from 99% to 0% and Successful stenting of the mid RCA Continue aspirin, Lipitor, Brilinta Cardiology following Labs and medication were reviewed.. Continue same treatment. Continue with symptomatic treatment. Resume home medication. Monitor labs and vitals. DVT and GI prophylaxis. Further recommendations as per clinical course of the patient Dictation was produced using [employer] dictation software. please excuse any grammatical, word or spelling errors. Objective - Vital Signs Vital signs: Vital Signs Temp 98.0 F 03/31/24 04:05 Pulse 68 03/31/24 04:05 Resp 16 03/31/24 04:05 BP 136/84 03/31/24 04:05 Pulse Ox 97 03/31/24 08:43 FiO2 Intake & Output 03/30/24 03/31/24 03/31/24 18:59 06:59 18:59 Intake Total 462 118 Output Total 0 Balance 462 118 Weight 62.3 kg 62.3 kg Intake: Oral 462 118 Output: Urine 0 Other: Voiding Method Toilet Toilet # Voids 1 1 - Labs CBC & Chem 7: 03/30/24 05:35 03/31/24 06:32
[2024-03-31] MEDS: METOPROLOL TARTRATE 25 MG TAB PO STA (15:47)
[2024-03-31] MEDS: METOPROLOL TARTRATE 50 MG TAB PO SCH (20:02)
--- NOTE | 2024-04-01 12:02 | P.PN ---
Subjective Progress Note Date: 04/01/24 This is Nj Delaney NP, I'm dictating on behalf of Dr. Scott's H&P and A&P. Patient was interviewed and examined. Patient is a pleasant 38-year-old female who presented to the hospital with acute coronary syndrome, and is status post stenting to the OM1 and RCA. Patient reports that she is doing okay today. She is denying chest pain, shortness of breath, and dizziness. Patient reports that she has been walking to the bathroom and back without issue. GENERAL: Well-appearing, well-nourished and in no acute distress. NECK: Supple without JVD or thyromegaly. LUNGS: Breath sounds clear to auscultation bilaterally. Respiration equal and unlabored. No wheezes, rales or rhonchi. HEART: Regular rate and rhythm without murmurs, rubs or gallops. S1 and S2 heard. EXTREMITIES: Normal range of motion, no edema. No clubbing or cyanosis. Peripheral pulses intact and strong. VITALS: Temp 97.8, pulse 78, respirations 14, blood pressure 109/72, O2 saturation 100% on room TELEMETRY: Sinus mechanism LABS: No new labs since 03/30/2024 IMPRESSION: 1. Unstable angina 2. CAD with prior PCI of the LAD 3. Status post PCI of the OM1 and RCA 4. Cardiomyopathy with an EF between 35 to 40% 5. History of mediastinal tumor removal 6. Hypertension 7. Dyslipidemia PLAN: Patient may be discharged from a cardiology standpoint. Continue metoprolol 50 mg twice daily. Objective - Vital Signs Vital signs: Vital Signs Temp 97.8 F 04/01/24 09:00 Pulse 78 04/01/24 09:00 Resp 14 04/01/24 09:00 BP 109/72 04/01/24 09:00 Pulse Ox 100 04/01/24 09:00 FiO2 Intake & Output 03/31/24 04/01/24 04/01/24 18:59 06:59 18:59 Intake Total 358 250 Balance 358 250 Weight 61.7 kg Intake: Oral 358 250 Other: Voiding Method Toilet Toilet Toilet # Voids 2 2 # Bowel Movements 0 - Labs CBC & Chem 7: 03/30/24 05:35 03/31/24 06:32
[2024-04-01 12:29] VITALS: BP 124/85; PULSE 72; RESP 16; TEMP 98.3
--- NOTE | 2024-04-01 12:41 | P.DS ---
Providers Date of admission: 03/29/24 22:44 Expected date of discharge: 04/01/24 Attending physician: Dayan Villanueva Consults: 03/29/24 22:42 Consult Physician Urgent Consulting Provider: Mk Whalen Consult Reason/Comments: EKG changes Do you want consulting provider notified?: Already Contacted 03/30/24 00:02 Consult Physician Routine Consulting Provider: [facility] Consult Reason/Comments: Post Interventional Patient Do you want consulting provider notified?: Already Contacted Primary care physician: Stated None Hospital Course: Discharge diagnoses; Acute coronary syndrome CAD with prior PCI of the LAD Cardiomyopathy with a EF between 35 to 40% Hypertension Hyperlipidemia Hospital course; patient is a 38-year-old lady with past medical history significant for coronary artery disease presented to the ER for chest pain. Patient stated that she was incarcerated and did receive her antiplatelet medication for a few days. Patient was all right yesterday when started noticing chest pain that was central, crushing,, nonradiating, no aggravating or relieving factor associated chest pain, associated with with shortness of breath. Patient denies any nausea or vomiting. Patient in in the chair was found to be hypertensive with blood pressure in her 230s over 130s, patient received nitroglycerin and was sent to the ER Initial lab work done in the ER showed 6.6, hemoglobin 14.5, platelet count 241, sodium 139, potassium 3.5, BUN 20, creatinine 0.73, glucose 101 troponin 0.012 lipase 195 Chest x-ray done in the ER showed no acute cardio pulmonary process EKG showed ischemic changes and Manager Interventional was activated and patient went for emergent cardiac cath. Patient underwent Successful stenting of OM1 using 2.25 x 12 mm Xience ISAAC with an excellent angiographic results and reduction of stenosis from 99% to 0% and Successful stenting of the mid RCA Patient admitted to internal medicine service 03/31. Patient seen and examined. Temperature 98, heart rate 68, respirations 16, blood pressure 130/84. Denies any chest pain or shortness of breath 04/01. Patient seen and examined. Cardiology cleared the patient for discharge. Dose of lisinopril was decreased to 10 mg, Lopressor dose increased to 50 mg twice a day. Prescriptions were given in paper form for patient as patient going to [facility]. PHYSICAL EXAMINATION: GENERAL: The patient is alert and oriented x3, not in any acute distress. Well developed, well nourished. HEENT: Pupils are round and equally reacting to light. EOMI. No scleral icterus. No conjunctival pallor. Normocephalic, atraumatic. No pharyngeal erythema. No thyromegaly. CARDIOVASCULAR: S1 and S2 present. No murmurs, rubs, or gallops. PULMONARY: Chest is clear to auscultation, no wheezing or crackles. ABDOMEN: Soft, nontender, nondistended, normoactive bowel sounds. No palpable organomegaly. MUSCULOSKELETAL: No joint swelling or deformity. EXTREMITIES: No cyanosis, clubbing, or pedal edema. NEUROLOGICAL: Gross neurological examination did not reveal any focal deficits. SKIN: No rashes. Dictation was produced using [employer] dictation software. please excuse any grammatical, word or spelling errors. Patient Condition at Discharge: Good Plan - Discharge Summary Discharge Rx Participant: No New Discharge Prescriptions: New Metoprolol Tartrate [Lopressor] 50 mg PO BID 30 Days #60 tab lisinopriL [Zestril] 10 mg PO DAILY 30 Days #30 tab Continue Atorvastatin [Lipitor] 80 mg PO HS #30 tab Dapagliflozin Propanediol [Farxiga] 10 mg PO DAILY #30 tab Famotidine [Pepcid] 20 mg PO DAILY #30 tablet Ibuprofen [Motrin Ib] 600 mg PO BID PRN PRN Reason: Pain Or Fever > 100.5 Ticagrelor [Brilinta] 90 mg PO BID #60 tab Albuterol Nebulized [Ventolin Nebulized] 2.5 mg INHALATION RT-BID PRN PRN Reason: Shortness Of Breath Aspirin 81 mg PO HS Discontinued Metoprolol Tartrate [Lopressor] 25 mg PO BID lisinopriL [Prinivil] 20 mg PO DAILY Discharge Medication List Atorvastatin [Lipitor] 80 mg PO HS #30 tab 03/10/24 [Rx] Dapagliflozin Propanediol [Farxiga] 10 mg PO DAILY #30 tab 03/10/24 [Rx] Famotidine [Pepcid] 20 mg PO DAILY #30 tablet 03/10/24 [Rx] Ticagrelor [Brilinta] 90 mg PO BID #60 tab 03/10/24 [Rx] Albuterol Nebulized [Ventolin Nebulized] 2.5 mg INHALATION RT-BID PRN 03/30/24 [History] Aspirin 81 mg PO HS 03/30/24 [History] Ibuprofen [Motrin Ib] 600 mg PO BID PRN 03/30/24 [History] Metoprolol Tartrate [Lopressor] 50 mg PO BID 30 Days #60 tab 04/01/24 [Rx] lisinopriL [Zestril] 10 mg PO DAILY 30 Days #30 tab 04/01/24 [Rx] Follow up Appointment(s)/Referral(s): None,Stated [Primary Care Provider] - 1-2 days Mk Whalen MD [STAFF PHYSICIAN] - 1 Week Discharge Disposition: HOME SELF-CARE
--- NOTE | 2024-04-03 19:47 | CDI ---
There is documentation of Unstable angina. Additional clarification is requested. History/Risk factors: CAD s/p CABG and prior PCI, HTN, Cardiomyopathy, HLD Clinical Indicators: Patient admitted with unstable angina, EKG showed ischemic ST changes and patient underwent PCI to OM1 and RCA. - ED note - "Clinical Impression: ST elevation myocardial infarction (STEMI), ACS (acute coronary syndrome)" - 03/30 Cardiology consult - "Assessment : Chest discomfort concerning for unstable angina, CAD with prior PCI of the LAD and today status post PCI of the OM and RCA" - 03/30 & 04/01 Cardiology PNs - "IMPRESSION: Unstable angina, CAD with prior PCI of the LAD Status post PCI of the OM and RCA" - 03/30 PCI procedure note - "INDICATION: Chest discomfort concerning for unstable angina associated with ischemic ST changes" - 03/31 IM PN - "Assessment and plan : Acute coronary syndrome, CAD with prior PCI of the LAD" - Discharge summary - "Discharge diagnoses: Acute coronary syndrome, CAD with prior PCI of the LAD" 03/29 Chest xray: No acute cardiopulmonary disease/process. Troponin: 03/29 <0.012, 03/30 0.035, 0.122 EKG Results: rate is 80 rhythm is sinus normal intervals [place] 137 QRS [address] elevations in aVR and V1 and V2 with ST depressions in most other leads most prominent in the inferior and lateral leads. Treatment: PCI to OM1 and RCA Can you please clarify the etiology/cause of the unstable angina? [ x] STEMI involving OM1 [ x] STEMI involving RCA [ ] STEMI involving Inferolateral [ ] CAD of [place] arteries with unstable angina [ ] Acute coronary syndrome [ ] Other, please specify [ ] Unable to determine MTDD
== END 2024-04-01 14:21 | disposition home or self-care (01) | DRG 174 ==
LOC: EC 21:20 → 2SICU 22:44 → 3SCARD 03-30 14:37
PROVIDERS: ADMIT Hospitalist; ATTEND Hospitalist
PROC: 027135Z Dilation of Coronary Artery, Two Arteries with Two Drug-eluting Intraluminal Devices, Percutaneous Approach (ICD-10-PCS; principal; 2024-03-30)
PROC: 4A023N7 Measurement of Cardiac Sampling and Pressure, Left Heart, Percutaneous Approach (ICD-10-PCS; 2024-03-30)
PROC: B2111ZZ Fluoroscopy of Multiple Coronary Arteries using Low Osmolar Contrast (ICD-10-PCS; 2024-03-30)
PROC: B240ZZ3 Ultrasonography of Single Coronary Artery, Intravascular (ICD-10-PCS; 2024-03-30)
PROC: 4A033BC Measurement of Arterial Pressure, Coronary, Percutaneous Approach (ICD-10-PCS; 2024-03-30)
DX: I21.21 ST elevation (STEMI) myocardial infarction involving left circumflex coronary artery (principal); I21.11 ST elevation (STEMI) myocardial infarction involving right coronary artery; I42.9 Cardiomyopathy, unspecified; I25.10 Atherosclerotic heart disease of native coronary artery without angina pectoris; E78.5 Hyperlipidemia, unspecified; F17.200 Nicotine dependence, unspecified, uncomplicated; I10 Essential (primary) hypertension; J45.909 Unspecified asthma, uncomplicated; Z79.82 Long term (current) use of aspirin; Z79.02 Long term (current) use of antithrombotics/antiplatelets; Z79.84 Long term (current) use of oral hypoglycemic drugs; Z79.899 Other long term (current) drug therapy; Z95.1 Presence of aortocoronary bypass graft; Z80.3 Family history of malignant neoplasm of breast
CPT/HCPCS: 36415; 71046; 80048; 80053; 80061; 82565; 83690; 83735; 84484; 85025; 85610; 85730; 92978; 93005; 93308; 93458; 93799; 94760; 96365; 96375; 99285

== ENCOUNTER 2024-04-08 00:49 | Emergency (ER) | payer OTHER ==
--- NOTE | 2024-04-08 00:56 | ED ---
Chest Pain HPI - General Stated Complaint: Chest pain Time Seen by Provider: 04/08/24 00:50 Source: RN notes reviewed, old records reviewed Mode of arrival: ambulatory Limitations: no limitations - History of Present Illness Initial Comments: This is a 38-year-old female to the ER for evaluation this patient presents today for evaluation regards to chest pain known history of recent chest pain and CAD with stent placement. Patient has for chest pain visits this past month MD Complaint: chest pain -: days(s) Onset: during rest, during exertion Pain Location: substernal Pain Radiation: none Severity: mild Severity scale (1-10): 3 Quality: aching Consistency: constant Improves With: nothing Worsens With: nothing Anginal Symptoms: dyspnea, sense of impending doom Other Symptoms: palpitations Treatments Prior to Arrival: none - Related Data Home Medications Medication Instructions Recorded Confirmed Albuterol Nebulized [Ventolin 2.5 mg INHALATION RT-BID PRN 03/30/24 04/11/24 Nebulized] Aspirin EC [Ecotrin Low Dose] 81 mg PO HS 04/11/24 04/11/24 Atorvastatin [Lipitor] 80 mg PO HS 04/11/24 04/11/24 Escitalopram [Lexapro] 5 mg PO HS 04/11/24 04/11/24 lisinopriL [Prinivil] 20 mg PO DAILY 04/11/24 04/11/24 Previous Rx's Medication Instructions Recorded Dapagliflozin Propanediol [Farxiga] 10 mg PO DAILY #30 tab 03/10/24 Famotidine [Pepcid] 20 mg PO DAILY #30 tablet 03/10/24 Ticagrelor [Brilinta] 90 mg PO BID #60 tab 03/10/24 Metoprolol Tartrate [Lopressor] 50 mg PO BID 30 Days #60 tab 04/01/24 Nitroglycerin Sl Tabs [Nitrostat] 0.4 mg SUBLINGUAL Q5M PRN #30 tab 04/13/24 Allergies Allergy/AdvReac Type Severity Reaction Status Date / Time pregabalin [From Lyrica] AdvReac CHEST Verified 04/11/24 08:48 TIGHTENING EXCEDRIN AdvReac CHEST Uncoded 04/11/24 08:48 TIGHTENING Review of Systems ROS Statement: Those systems with pertinent positive or pertinent negative responses have been documented in the HPI. ROS Other: All systems not noted in ROS Statement are negative. 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 Unsure if she has a leaky valve. History of Any Multi-Drug Resistant Organisms: None Reported Past Surgical History: Appendectomy, Section, Cholecystectomy, Heart Catheterization With Stent Additional Past Surgical History / Comment(s): CABG, Left knee surgeries, endometrosis surgery. stent x 1 Past Anesthesia/Blood Transfusion Reactions: No Reported Reaction Date of Last Stent Placement:: 03/29/24 Past Psychological History: Anxiety, Bipolar Smoking Status: Current every day smoker Past Drug Use History: Marijuana, Methamphetamine - Past Family History Mother Additional Family Medical History / Comment(s): Grandmother had a pacemaker Father Family Medical History: Cancer Additional Family Medical History / Comment(s): colon cancer, Breast cancer runs on his side of the family. General Exam General appearance: alert, in no apparent distress Head exam: Present: atraumatic, normocephalic, normal inspection Eye exam: Present: normal appearance, PERRL, EOMI. Absent: scleral icterus, conjunctival injection, periorbital swelling ENT exam: Present: normal exam, mucous membranes moist Neck exam: Present: normal inspection. Absent: tenderness, meningismus, lymphadenopathy Respiratory exam: Present: normal lung sounds bilaterally. Absent: respiratory distress, wheezes, rales, rhonchi, stridor Cardiovascular Exam: Present: regular rate, normal rhythm, normal heart sounds. Absent: systolic murmur, diastolic murmur, rubs, gallop, clicks GI/Abdominal exam: Present: soft, normal bowel sounds. Absent: distended, tenderness, guarding, rebound, rigid Extremities exam: Present: normal inspection, full ROM, normal capillary refill. Absent: tenderness, pedal edema, joint swelling, calf tenderness Back exam: Present: normal inspection Neurological exam: Present: alert, oriented X3, CN II-XII intact Psychiatric exam: Present: normal affect, normal mood Skin exam: Present: warm, dry, intact, normal color. Absent: rash Course Vital Signs 04/08/24 04/08/24 04/08/24 00:52 01:10 04:43 Temperature 97.2 F L Pulse Rate 67 65 Pulse Rate [ 63 Right Sitting Radial] Respiratory 18 18 Rate Blood Pressure 179/97 135/77 O2 Sat by Pulse 98 98 Oximetry - Reevaluation(s) Reevaluation #1: 04/08/24 01:46 Medical records reviewed Reevaluation #2: 04/08/24 01:46 Patient still with chest pain here in the ER Reevaluation #3: 04/08/24 01:46 Patient informed of results and questions answered Reevaluation #4: Was pt. sent in by a medical professional or institution (, PA, STOCK ANALYST, urgent care, hospital, or [place] [facility] facility...) When possible be specific @ -no Did you speak to anyone other than the patient for history (EMS, parent, family, police, friend...)? What history was obtained from this source @ -no Did you review nursing and triage notes (agree or disagree)? Why? @ -agree Are old charts reviewed (outside hosp., previous admission, EMS record, old EKG, old radiological studies, urgent care reports/EKG's, [place] [facility] records)? Report findings @ -yes Differential Diagnosis (chest pain, altered mental status, abdominal pain women, abdominal pain men, vaginal bleeding, weakness, fever, dyspnea, syncope, headache, dizziness, GI bleed, back pain, seizure, CVA, palpatations, mental health, musculoskeletal)? @ -prior EKG interpreted by me (3pts min.). @ -yes X-rays interpreted by me (1pt min.). @ -yes negative for acute disease CT interpreted by me (1pt min.). @ -no U/S interpreted by me (1pt. min.). @ -no What testing was considered but not performed or refused? (CT, X-rays, U/S, labs)? Why? @ -none What meds were considered but not given or refused? Why? @ -none Did you discuss the management of the patient with other professionals (professionals i.e. , LEONEL, STOCK ANALYST, lab, RT, psych nurse, geriatric social worker, immersion metal cleaner, teacher, contract officer, medical case manager)? Give summary @ -no Was smoking cessation discussed for >3mins.? @ -no Was critical care preformed (if so, how long)? @ -no Were there social determinants of health that impacted care today? How? (Homelessness, low income, unemployed, alcoholism, drug addiction, transportation, low edu. Level, literacy, decrease access to med. care, custodial, rehab)? @ -none Was there de-escalation of care discussed even if they declined (Discuss DNR or withdrawal of care, Hospice)? DNR status @ -no What co-morbidities impacted this encounter? (DM, HTN, Smoking, COPD, CAD, Cancer, CVA, ARF, Chemo, Hep., AIDS, mental health diagnosis, sleep apnea, morbid obesity)? @ -none Was patient admitted / discharged? Hospital course, mention meds given and route, prescriptions, significant lab abnormalities, going to OR and other pertinent info. @ - 38 female to the ER for evaluation of chest pain patient having persistent chest pain here in the ER although feeling improved Discharge Undiagnosed new problem with uncertain prognosis? @ -no Drug Therapy requiring intensive monitoring for toxicity (Heparin, Nitro, Insulin, Cardizem)? @ -no Were any procedures done? @ -no Diagnosis/symptom? @ -Chest pain Acute, or Chronic, or Acute on Chronic? @ -Acute Uncomplicated (without systemic symptoms) or Complicated (systemic symptoms)? @ -Complicated Side effects of treatment? @ -no Exacerbation, Progression, or Severe Exacerbation? @ -exacerbation Poses a threat to life or bodily function? How? (Chest pain, [place], [place], pneumonia, PE, COPD, DKA, ARF, appy, cholecystitis, CVA, Diverticulitis, Homicidal, Suicidal, threat to staff... and all critical care pts) @ -yes with chest pain Reevaluation #5: Differential Chest Pain: Stable Angina, Unstable Angina, STEMI, NSTEMI Aortic Dissection, Pneumothorax, Musculoskeletal, Esophageal Spasm GERD, Cholecystitis, Pancreatitis, Zoster, this is not meant to be an all-inclusive list. Chest Pain MDM - MDM 38 female to the ER for evaluation of chest pain patient having persistent chest pain here in the ER although feeling improved Disposition Clinical Impression: Chest pain Disposition: HOME SELF-CARE Condition: Fair Instructions (If sedation given, give patient instructions): Chest Pain (ED) Is patient prescribed a controlled substance at d/c from ED?: No Referrals: None,Stated [Primary Care Provider] - 1-2 days Time of Disposition: 04:30
[2024-04-08 01:02] VITALS: RESP 18; TEMP 97.2
[2024-04-08] MEDS: SODIUM CHLORIDE 0.9% 1,000 ML IV STA (01:08)
[2024-04-08 01:11] LABS: Basophils % (A) 1 %; Eosinophils # (A) 0.3 k/uL (0-0.7); Eosinophils % (A) 4 %; HCT 40.4 % (34.0-46.0); HGB 13.4 gm/dL (11.4-16.0); Lymphocytes # (A) 2.2 k/uL (1.0-4.8); Lymphocytes % (A) 30 %; MCH 31.1 pg (25.0-35.0); MCHC 33.1 g/dL (31.0-37.0); Mean Platelet Volume 8.5; Monocytes # (A) 0.4 k/uL (0-1.0); Monocytes % (A) 5 %; Neutrophils # (A) 4.4 k/uL (1.3-7.7); Neutrophils % (A) 59 %; Platelet Count 238 k/uL (150-450); RDW 12.7 % (11.5-15.5); WBC 7.5 k/uL (3.8-10.6)
[2024-04-08 01:29] LABS: Partial Thromboplastin Time 23.8 sec (22.0-30.0); Prothrombin Time 10.6 sec (10.0-12.5)
[2024-04-08 01:30] LABS: ALT 58 U/L (4-34); AST 39 U/L (14-36); African American GFR (CKD) >90 (>60 ml/min/1.73 sqM); Albumin 4.3 g/dL (3.5-5.0); Alkaline Phosphatase 103 U/L (38-126); Anion Gap 4 mmol/L; Blood Urea Nitrogen 16 mg/dL (7-17); Calcium 9.3 mg/dL (8.4-10.2); Carbon Dioxide 25 mmol/L (22-30); Chloride 111 mmol/L (98-107); Glucose 105 mg/dL (74-99); Magnesium 2.2 mg/dL (1.6-2.3); Non-African American GFR(CKD) >90 (>60 ml/min/1.73 sqM); Phosphorus 2.6 mg/dL (2.5-4.5); Potassium 3.9 mmol/L (3.5-5.1); Sodium 140 mmol/L (137-145); Total Bilirubin 0.4 mg/dL (0.2-1.3); Total Protein 6.8 g/dL (6.3-8.2)
[2024-04-08 01:38] LABS: NT-Pro-B-Type Natriuretic Pept 1030 pg/mL
[2024-04-08] MEDS: ASPIRIN 81 MG PO STA (03:04)
--- NOTE | 2024-04-08 04:41 | XR ---
EXAM: XR Chest, 1 View CLINICAL HISTORY: ITS.REASON XR Reason: cp TECHNIQUE: Frontal view of the chest. COMPARISON: No relevant prior studies available. FINDINGS: Lungs: No consolidation or mass. Pleural space: No acute findings. Heart: cardiomegaly. Bones/joints: No acute findings. IMPRESSION: No acute cardiopulmonary process.
[2024-04-08 04:54] VITALS: BP 135/77; PULSE 65
== END 2024-04-08 04:54 | disposition home or self-care (01) ==
LOC: EC 00:49
DX: R07.89 Other chest pain (principal); F17.200 Nicotine dependence, unspecified, uncomplicated; Z88.8 Allergy status to other drugs, medicaments and biological substances
CPT/HCPCS: 36415; 71045; 80053; 83735; 83880; 84100; 84484; 85025; 85610; 85730; 93005; 96360; 99285

== ENCOUNTER 2024-04-10 23:35 | Observation (INO) | payer OTHER ==
--- NOTE | 2024-04-10 23:43 | ED ---
Chest Pain HPI - General Chief Complaint: Chest Pain Stated Complaint: Chest Pain Time Seen by Provider: 04/10/24 23:37 Source: patient, EMS, RN notes reviewed, old records reviewed Mode of arrival: EMS Limitations: no limitations - History of Present Illness Initial Comments: This is a 38 female this female presents today for evaluation of chest pain. Patient is well-known to the emergency room with multiple recent ER visits, patient had recent non-ST elevated PR but did have heart catheterization with stents placed. Patient presents today for severely uncontrolled blood pressure in the outpatient setting patient comes from incarceration still complaining of chest pain MD Complaint: chest pain, other (Uncontrolled hypertension) -: hour(s) Onset: during rest Pain Location: substernal, left chest Pain Radiation: none Severity: moderate Severity scale (1-10): 6 Quality: tightness, heaviness Consistency: constant Improves With: nothing Worsens With: nothing Other Symptoms: palpitations Treatments Prior to Arrival: none - Related Data Home Medications Medication Instructions Recorded Confirmed Albuterol Nebulized [Ventolin 2.5 mg INHALATION RT-BID PRN 03/30/24 04/11/24 Nebulized] Aspirin EC [Ecotrin Low Dose] 81 mg PO HS 04/11/24 04/11/24 Atorvastatin [Lipitor] 80 mg PO HS 04/11/24 04/11/24 Escitalopram [Lexapro] 5 mg PO HS 04/11/24 04/11/24 lisinopriL [Prinivil] 20 mg PO DAILY 04/11/24 04/11/24 Previous Rx's Medication Instructions Recorded Dapagliflozin Propanediol [Farxiga] 10 mg PO DAILY #30 tab 03/10/24 Famotidine [Pepcid] 20 mg PO DAILY #30 tablet 03/10/24 Ticagrelor [Brilinta] 90 mg PO BID #60 tab 03/10/24 Metoprolol Tartrate [Lopressor] 50 mg PO BID 30 Days #60 tab 04/01/24 Nitroglycerin Sl Tabs [Nitrostat] 0.4 mg SUBLINGUAL Q5M PRN #30 tab 04/13/24 amLODIPine [Norvasc] 5 mg PO DAILY #30 tab 04/17/24 Allergies Allergy/AdvReac Type Severity Reaction Status Date / Time pregabalin [From Lyrica] AdvReac CHEST Verified 04/17/24 15:53 TIGHTENING EXCEDRIN AdvReac CHEST Uncoded 04/17/24 15:53 TIGHTENING Review of Systems ROS Statement: Those systems with pertinent positive or pertinent negative responses have been documented in the HPI. ROS Other: All systems not noted in ROS Statement are negative. 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 Unsure if she has a leaky valve. History of Any Multi-Drug Resistant Organisms: None Reported Past Surgical History: Appendectomy, Section, Cholecystectomy, Heart Catheterization With Stent Additional Past Surgical History / Comment(s): CABG, Left knee surgeries, endometrosis surgery. stent x 1 Past Anesthesia/Blood Transfusion Reactions: No Reported Reaction Date of Last Stent Placement:: 03/29/24 Past Psychological History: Anxiety, Bipolar Smoking Status: Current every day smoker Past Drug Use History: Marijuana, Methamphetamine - Past Family History Mother Additional Family Medical History / Comment(s): Grandmother had a pacemaker Father Family Medical History: Cancer Additional Family Medical History / Comment(s): colon cancer, Breast cancer runs on his side of the family. General Exam General appearance: alert, in no apparent distress, anxious Head exam: Present: atraumatic, normocephalic, normal inspection Eye exam: Present: normal appearance, PERRL, EOMI. Absent: scleral icterus, conjunctival injection, periorbital swelling ENT exam: Present: normal exam, mucous membranes moist Neck exam: Present: normal inspection. Absent: tenderness, meningismus, lymphadenopathy Respiratory exam: Present: normal lung sounds bilaterally. Absent: respiratory distress, wheezes, rales, rhonchi, stridor Cardiovascular Exam: Present: regular rate, normal rhythm, normal heart sounds. Absent: systolic murmur, diastolic murmur, rubs, gallop, clicks GI/Abdominal exam: Present: soft, normal bowel sounds. Absent: distended, tenderness, guarding, rebound, rigid Extremities exam: Present: normal inspection, full ROM, normal capillary refill. Absent: tenderness, pedal edema, joint swelling, calf tenderness Back exam: Present: normal inspection Neurological exam: Present: alert, oriented X3, CN II-XII intact Psychiatric exam: Present: normal affect, normal mood Skin exam: Present: warm, dry, intact, normal color. Absent: rash Course Vital Signs 04/10/24 04/11/24 04/11/24 23:40 03:38 05:15 Temperature 98.1 F Pulse Rate 62 53 L 53 L Respiratory 18 14 16 Rate Blood Pressure 156/94 167/85 143/80 O2 Sat by Pulse 98 97 97 Oximetry 04/11/24 04/11/24 04/11/24 06:34 09:09 10:00 Temperature Pulse Rate 81 57 L 57 L Respiratory 16 11 L 16 Rate Blood Pressure 143/80 153/101 153/101 O2 Sat by Pulse 97 97 97 Oximetry 04/11/24 04/11/24 10:05 11:00 Temperature 98.1 F Pulse Rate 71 62 Respiratory 18 18 Rate Blood Pressure 127/63 127/63 O2 Sat by Pulse 97 97 Oximetry - Reevaluation(s) Reevaluation #1: 04/11/24 00:20 Medical records reviewed Reevaluation #2: 04/11/24 00:20 Patient blood pressure improved Reevaluation #3: 04/11/24 00:20 Patient informed of results and questions answered Reevaluation #4: Was pt. sent in by a medical professional or institution (Dr. PA, EVENT LIGHTING SPECIALIST, urgent c are, hospital, or fdc...) When possible be specific @ -no Did you speak to anyone other than the patient for history (EMS, parent, family, police, friend...)? What history was obtained from this source @ -no Did you review nursing and triage notes (agree or disagree)? Why? @ -agree Are old charts reviewed (outside hosp., previous admission, EMS record, old EKG, old radiological studies, urgent care reports/EKG's, fdc records)? Report findings @ -yes Differential Diagnosis (chest pain, altered mental status, abdominal pain women, abdominal pain men, vaginal bleeding, weakness, fever, dyspnea, syncope, headache, dizziness, GI bleed, back pain, seizure, CVA, palpatations, mental health, musculoskeletal)? @ -prior EKG interpreted by me (3pts min.). @ -yes X-rays interpreted by me (1pt min.). @ -yes negative for acute disease CT interpreted by me (1pt min.). @ -no U/S interpreted by me (1pt. min.). @ -no What testing was considered but not performed or refused? (CT, X-rays, U/S, labs)? Why? @ -none What meds were considered but not given or refused? Why? @ -none Did you discuss the management of the patient with other professionals (professionals i.e. Dr., PA, EVENT LIGHTING SPECIALIST, lab, RT, psych nurse, social science professor, medical anthropology director, teacher, uniform patrol police officer, nurse case management)? Give summary @ -no Was smoking cessation discussed for >3mins.? @ -no Was critical care preformed (if so, how long)? @ -yes31 Were there social determinants of health that impacted care today? How? (Homelessness, low income, unemployed, alcoholism, drug addiction, transportation, low edu. Level, literacy, decrease access to med. care, alf, rehab)? @ -none Was there de-escalation of care discussed even if they declined (Discuss DNR or withdrawal of care, Hospice)? DNR status @ -no What co-morbidities impacted this encounter? (DM, HTN, Smoking, COPD, CAD, Cancer, CVA, ARF, Chemo, Hep., AIDS, mental health diagnosis, sleep apnea, morbid obesity)? @ -none Was patient admitted / discharged? Hospital course, mention meds given and route, prescriptions, significant lab abnormalities, going to OR and other pertinent info. @ - 38 female will be admitted for chest pain, unstable angina with persistent chest pain and severely elevated blood pressure uncontrolled blood pressure from incarceration Admitted Undiagnosed new problem with uncertain prognosis? @ -no Drug Therapy requiring intensive monitoring for toxicity (Heparin, Nitro, Insulin, Cardizem)? @ -no Were any procedures done? @ -no Diagnosis/symptom? @ -Chest pain ACS uncontrolled hypertension Acute, or Chronic, or Acute on Chronic? @ -Acute Uncomplicated (without systemic symptoms) or Complicated (systemic symptoms)? @ -Complicated Side effects of treatment? @ -no Exacerbation, Progression, or Severe Exacerbation? @ -exacerbation Poses a threat to life or bodily function? How? (Chest pain, USA, PR, pneumonia, PE, COPD, DKA, ARF, appy, cholecystitis, CVA, Diverticulitis, Homicidal, Suicidal, threat to staff... and all critical care pts) @ -yes chest pain with recent stent placement Reevaluation #5: Differential Chest Pain: Stable Angina, Unstable Angina, STEMI, NSTEMI Aortic Dissection, Pneumothorax, Musculoskeletal, Esophageal Spasm GERD, Cholecystitis, Pancreatitis, Zoster, this is not meant to be an all-inclusive list. - Consultations Consultation #1: Spoke with [facility] who agrees to admit this patient Chest Pain MDM - MDM 38 female will be admitted for chest pain, unstable angina with persistent chest pain and severely elevated blood pressure uncontrolled blood pressure from incarceration Critical Care Time Critical Care Time: Yes Total Critical Care Time: 31 Disposition Clinical Impression: Chest pain, Unstable angina pectoris, Hypertension, uncontrolled Disposition: ADMITTED IP TO THIS HOSP Condition: Good Is patient prescribed a controlled substance at d/c from ED?: No Time of Disposition: 00:50
[2024-04-11] MEDS: SODIUM CHLORIDE 0.9% 500 ML 500 ML IV STA (00:07)
[2024-04-11] MEDS: NITROGLYCERIN OINT 1 INCH/GM PACKET TOPICAL STA (00:10)
[2024-04-11] MEDS: ASPIRIN 81 MG PO STA (00:10)
[2024-04-11 00:11] LABS: Basophils % (A) 0 %; Eosinophils # (A) 0.2 k/uL (0-0.7); Eosinophils % (A) 3 %; HCT 38.7 % (34.0-46.0); HGB 12.7 gm/dL (11.4-16.0); Lymphocytes # (A) 2.7 k/uL (1.0-4.8); Lymphocytes % (A) 44 %; MCH 30.7 pg (25.0-35.0); MCHC 32.7 g/dL (31.0-37.0); MCV 93.9 fL (80.0-100.0); Mean Platelet Volume 8.6; Monocytes # (A) 0.4 k/uL (0-1.0); Monocytes % (A) 7 %; Neutrophils # (A) 2.6 k/uL (1.3-7.7); Neutrophils % (A) 43 %; Platelet Count 236 k/uL (150-450); RBC 4.13 m/uL (3.80-5.40); RDW 12.6 % (11.5-15.5); WBC 6.1 k/uL (3.8-10.6)
[2024-04-11 00:15] LABS: Partial Thromboplastin Time 23.9 sec (22.0-30.0); Prothrombin Time 10.9 sec (10.0-12.5)
[2024-04-11] MEDS ORDERED: NALOXONE 0.4 MG/ML 1 ML VIAL IV PRN (00:18)
[2024-04-11 00:25] LABS: ALT 43 U/L (4-34); AST 27 U/L (14-36); African American GFR (CKD) >90 (>60 ml/min/1.73 sqM); Albumin 4.1 g/dL (3.5-5.0); Alkaline Phosphatase 72 U/L (38-126); Anion Gap 5 mmol/L; Blood Urea Nitrogen 18 mg/dL (7-17); Calcium 9.3 mg/dL (8.4-10.2); Carbon Dioxide 22 mmol/L (22-30); Chloride 112 mmol/L (98-107); Glucose 107 mg/dL (74-99); Lipase 194 U/L (23-300); Magnesium 2.1 mg/dL (1.6-2.3); Non-African American GFR(CKD) >90 (>60 ml/min/1.73 sqM); Potassium 3.9 mmol/L (3.5-5.1); Sodium 139 mmol/L (137-145); Total Bilirubin 0.3 mg/dL (0.2-1.3); Total Protein 6.4 g/dL (6.3-8.2)
[2024-04-11 00:33] LABS: NT-Pro-B-Type Natriuretic Pept 1300 pg/mL
--- NOTE | 2024-04-11 02:04 | XR ---
EXAM: XR Chest, 1 View CLINICAL HISTORY: ITS.REASON XR Reason: chest pain TECHNIQUE: Frontal view of the chest. COMPARISON: No relevant prior studies available. FINDINGS: Lungs: Unremarkable. No consolidation. Pleural space: Unremarkable. No pneumothorax. Heart: Unremarkable. No cardiomegaly. Mediastinum: Unremarkable. Normal mediastinal contour. Bones/joints: Sternotomy wires. No acute fracture. IMPRESSION: No acute findings in the chest.
[2024-04-11] MEDS ORDERED: ALBUTEROL NEBULIZED 2.5 MG/3 ML INHALATION PRN (09:50)
[2024-04-11] MEDS: lisinopriL 20 MG TAB PO SCH (10:04)
[2024-04-11] MEDS: DAPAGLIFLOZIN PROPANEDIOL 10 MG TABLET PO SCH (10:04)
[2024-04-11] MEDS: METOPROLOL TARTRATE 50 MG TAB PO SCH (10:04)
--- NOTE | 2024-04-11 11:31 | CONS ---
CONSULTATION HISTORY OF PRESENT ILLNESS: Doris is a 38-year-old lady, who is currently incarcerated, has known coronary artery disease and underwent multiple angioplasties over the last several weeks including LAD, right coronary artery, and OM branch. Most recently, she had angioplasty with stent placements on 03/30/2024 when she underwent stenting of the OM and the right coronary artery. She comes in complaining of chest discomfort. Her chest pain is precordial, mild intensity with some radiation to her back. At the time of my evaluation, she is sleeping soundly and does not have any chest pain. On her initial presentation, her blood pressures were elevated, but they are better controlled at the time of my evaluation. Her EKG shows sinus rhythm with poor R-wave progression and extensive ST-T wave changes. These changes are similar to the EKG that she had at her most recent admission. PAST MEDICAL HISTORY: Significant for coronary artery disease, status post multivessel angioplasty, hypertension, and dyslipidemia. Also significant for lupus and fibromyalgia. CURRENT MEDICATIONS: Include: 1. Lisinopril 10 daily. 2. Brilinta 90 b.i.d. 3. Metoprolol 50 b.i.d. 4. Pepcid. 5. Motrin. 6. Farxiga. 7. Lipitor. 8. Aspirin. 9. Ventolin. ALLERGIES: The patient is allergic to Lyrica and Excedrin. FAMILY HISTORY: Negative for premature coronary artery disease. SOCIAL HISTORY: The patient is currently incarcerated and significant for smoking and there is past drug use history. REVIEW OF SYSTEMS: review of systems has been performed, pertinents are as documented. PAST SURGICAL HISTORY: The patient apparently had surgery for removal of cardiac mass. She also has history of appendectomy, section, and cholecystectomy. PHYSICAL EXAM: GENERAL: The patient is comfortable at rest. VITAL SIGNS: Stable. CHEST: Reveals good air entry bilaterally. HEART: Reveals first and second heart sounds. No gallop. Has a systolic murmur at the apex. ABDOMEN: Soft. EXTREMITIES: Did not reveal any edema. Peripheral pulses are felt. LABS: Show that the hemoglobin is 12.7, platelet count is 236, potassium is 3.9, creatinine is 0.75. Three sets of troponins are negative. BNP is 1300 of unclear clinical significance. ASSESSMENT: 1. Unstable angina in a patient with known coronary artery disease status post multiple prior angioplasties. 2. Hypertension. 3. Dyslipidemia. PLAN: I am going to continue the current medications. Resume aspirin, Brilinta, Zestril, Lopressor, and Lipitor that she is on and keep her n.p.o. and talk to Dr. Whalen tomorrow morning. DEE DEE / EDEN: [id number] /
[2024-04-11] MEDS: TICAGRELOR 90 MG TAB PO SCH (13:28)
--- NOTE | 2024-04-11 16:31 | P.HPIM ---
History of Present Illness H&P Date: 04/11/24 History of present illness; patient is a 38-year-old lady with past medical history significant coronary disease status post recent stenting of OM1 and LAD, cardiomyopathy, hypertension, hyperlipidemia who presented to the ER because of chest pain. Patient has been seen few times over the last few weeks with similar complaints. Patient is currently incarcerated, was having chest pain that was central location, nonradiating, no aggravating or relieving factor associated with chest pain. Patient denies any shortness of breath. There is no complaint of palpitation. No complaint orthopnea or PND. Patient also had elevated blood pressure. Because of these symptoms, patient brought to the ER Initial lab work done in the ER showed WBC 6.1, hemoglobin 12.7, platelet count 236, sodium 139, potassium 3.9, BUN 18, creatinine 0.75, troponin 0.012 EKG done in the ER showed heart rate of 52, no ST segment elevation or depression seen, no T-wave inversions seen. Chest x-ray done in the ER Patient admitted to internal medicine service REVIEW OF SYSTEMS: CONSTITUTIONAL: No fever, no malaise, no fatigue. HEENT: No recent visual problems or hearing problems. Denied any sore throat. CARDIOVASCULAR: As mentioned above PULMONARY: As mentioned above GASTROINTESTINAL: No diarrhea, no nausea, no vomiting, no abdominal pain. NEUROLOGICAL: No headaches, no weakness, no numbness. HEMATOLOGICAL: Denies any bleeding or petechiae. GENITOURINARY: Denies any burning micturition, frequency, or urgency. MUSCULOSKELETAL/RHEUMATOLOGICAL: Denies any joint pain, swelling, or any muscle pain. ENDOCRINE: Denies any polyuria or polydipsia. The rest of the 14-point review of systems is negative. PHYSICAL EXAMINATION: GENERAL: The patient is alert and oriented x3, not in any acute distress. Well developed, well nourished. HEENT: Pupils are round and equally reacting to light. EOMI. No scleral icterus. No conjunctival pallor. Normocephalic, atraumatic. No pharyngeal erythema. No thyromegaly. CARDIOVASCULAR: S1 and S2 present. No murmurs, rubs, or gallops. PULMONARY: Chest is clear to auscultation, no wheezing or crackles. ABDOMEN: Soft, nontender, nondistended, normoactive bowel sounds. No palpable organomegaly. MUSCULOSKELETAL: No joint swelling or deformity. EXTREMITIES: No cyanosis, clubbing, or pedal edema. NEUROLOGICAL: Gross neurological examination did not reveal any focal deficits. SKIN: No rashes. Assessment and plan Chest pain, rule out acute coronary syndrome CAD with prior PCI of the LAD and OM1 Cardiomyopathy with a EF between 35 to 40% Hypertension Hyperlipidemia Monitor vital signs Monitor CBC Monitor CMP Continue telemetry monitoring Trend troponin Resume aspirin and Brilinta Resume Farxiga Resume Lopressor, lisinopril Cardiology consulted Labs and medication were reviewed.. Continue same treatment. Continue with symptomatic treatment. Resume home medication. Monitor labs and vitals. DVT and GI prophylaxis. Further recommendations as per clinical course of the patient Dictation was produced using [employer] dictation software. please excuse any grammatical, word or spelling errors. 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 Unsure if she has a leaky valve. History of Any Multi-Drug Resistant Organisms: None Reported Past Surgical History: Appendectomy, Section, Cholecystectomy, Heart Catheterization With Stent Additional Past Surgical History / Comment(s): CABG, Left knee surgeries, endometrosis surgery. stent x 1 Past Anesthesia/Blood Transfusion Reactions: No Reported Reaction Date of Last Stent Placement:: 03/29/24 Smoking Status: Current every day smoker - Past Family History Mother Additional Family Medical History / Comment(s): Grandmother had a pacemaker Father Family Medical History: Cancer Additional Family Medical History / Comment(s): colon cancer, Breast cancer runs on his side of the family. Medications and Allergies Home Medications Medication Instructions Recorded Confirmed Type Dapagliflozin Propanediol [Farxiga] 10 mg PO DAILY #30 tab 03/10/24 04/11/24 Rx Famotidine [Pepcid] 20 mg PO DAILY #30 tablet 03/10/24 04/11/24 Rx Ticagrelor [Brilinta] 90 mg PO BID #60 tab 03/10/24 04/11/24 Rx Albuterol Nebulized [Ventolin 2.5 mg INHALATION RT-BID PRN 03/30/24 04/11/24 History Nebulized] Metoprolol Tartrate [Lopressor] 50 mg PO BID 30 Days #60 tab 04/01/24 04/11/24 Rx Aspirin EC [Ecotrin Low Dose] 81 mg PO HS 04/11/24 04/11/24 History Atorvastatin [Lipitor] 80 mg PO HS 04/11/24 04/11/24 History Escitalopram [Lexapro] 5 mg PO HS 04/11/24 04/11/24 History cloNIDine HCL [Catapres] 0.1 mg PO ONCE 04/11/24 04/11/24 History lisinopriL [Prinivil] 20 mg PO DAILY 04/11/24 04/11/24 History Allergies Allergy/AdvReac Type Severity Reaction Status Date / Time pregabalin [From Lyrica] AdvReac CHEST Verified 04/11/24 08:48 TIGHTENING EXCEDRIN AdvReac CHEST Uncoded 04/11/24 08:48 TIGHTENING Physical Exam Vitals: Vital Signs Temp Pulse Pulse Resp BP BP Pulse Ox 04/11/24 12:33 99.5 F 57 L 16 156/93 98 04/11/24 11:00 98.1 F 62 18 127/63 97 04/11/24 10:05 71 18 127/63 97 04/11/24 10:00 57 L 16 153/101 97 04/11/24 09:09 57 L 11 L 153/101 97 04/11/24 06:34 81 16 143/80 97 04/11/24 05:15 53 L 16 143/80 97 04/11/24 03:38 53 L 14 167/85 97 04/10/24 23:40 98.1 F 62 18 156/94 98 Intake and Output 04/10/24 04/11/24 04/11/24 22:59 06:59 14:59 Intake Total 480 Balance 480 Intake: Oral 480 Other: Weight 58.967 kg 58.967 kg Results CBC & Chem 7: 04/10/24 23:55 04/10/24 23:55 Labs: Abnormal Lab Results - Last 24 Hours (Table) 04/10/24 Range/Units 23:55 Chloride 112 H (98-107) mmol/L BUN 18 H (7-17) mg/dL Glucose 107 H (74-99) mg/dL ALT 43 H (4-34) U/L Thrombosis Risk Factor Assmnt - Choose All That Apply Any of the Below Risk Factors Present?: No Other Risk Factors: No Thrombosis Risk Factor Assessment Level: Very Low Risk
[2024-04-11] MEDS: ESCITALOPRAM 5 MG TAB PO SCH (20:22)
[2024-04-11] MEDS: ASPIRIN 81 MG PO SCH (20:22)
[2024-04-11] MEDS: ATORVASTATIN 80 MG TAB PO SCH (20:22)
[2024-04-12] MEDS ORDERED: ALPRAZolam 0.5 MG TAB PO PRN (08:03)
[2024-04-12] MEDS ORDERED: NITROGLYCERIN SL TABS 0.4 MG TAB SUBLINGUAL PRN (08:03)
[2024-04-12] MEDS ORDERED: ALPRAZolam 0.25 MG TAB PO PRN (08:03)
[2024-04-12] MEDS: SODIUM CHLORIDE 0.9% 1,000 ML in EMPTY BAG 1 BAG IV SCH (08:34)
[2024-04-12] MEDS: FAMOTIDINE 20 MG TAB PO SCH (08:34)
[2024-04-12] MEDS: ATORVASTATIN 80 MG TAB PO STA (08:34)
[2024-04-12] MEDS: ASPIRIN 325 MG TAB PO STA (08:34)
[2024-04-12] MEDS: MIDAZOLAM 2 MG/2 ML VIAL IVP ONE ×2 (13:13→13:20)
[2024-04-12] MEDS: LIDOCAINE 1% INJ 10MG/ML (20 ML MDV) SQ ONE (13:15)
[2024-04-12] MEDS: VERAPAMIL SYRINGE (5 MG/10 ML) IVP ONE (13:16)
[2024-04-12] MEDS: HEPARIN SODIUM 1,000 UN/ML (10ML VL) IVP ONE (13:22)
[2024-04-12] MEDS: IOPAMIDOL-370 100ML BTL INJ ONE (13:22)
[2024-04-12] MEDS: IV FLUID CONTINUATION 900 ML IV ONE (13:22)
[2024-04-12] MEDS ORDERED: RX INFO: IV CONTRAST WAS GIVEN 1 EACH MISC MISCELLANE PRN (13:24)
--- NOTE | 2024-04-12 13:26 | P.PCN ---
Date of Procedure: 04/12/24 Operative Findings: CARDIAC CATHETERIZATION PERFORMING PHYSICIAN: Mk Whalen MD, RPVI PROCEDURE PERFORMED: 1. Selective right and left coronary angiogram 2. Left heart catheterization 3. Ultrasound-guided access of the right radial artery INDICATION: Chest discomfort concerning for unstable angina COMPLICATION: None APPROACH: Right radial artery LEVEL OF SEDATION: Moderate with a sedation length of 10 minutes PROCEDURE DESCRIPTION: After obtaining an informed consent, the patient was brought to cardiac cathode ray tube assembler. Local anesthesia was performed using lidocaine subcutaneously. The right radial artery was cannulated using Seldinger technique, the guidewire passed easily, following that we advanced a 5-St Lucian sheath dilator assembly, the wire and dilator were removed and sheath was flushed. Following that, 2 mg of verapamil along with 5000 unit heparin were given. Selective right and left coronary angiogram using a 6-[place] Lucian JR4 and JL 3.5 catheters. Following that we did left heart catheterization using 6-[place] Lucian pigtail catheter. The procedure was completed there was no complication. SELECTIVE CORONARY ANGIOGRAM: The right coronary artery: Large caliber vessel and a dominant vessel with patent stent in the midportion Left main: Is angiographically normal The left circumflex: Large caliber vessel with patent stent in the OM1 The left anterior descending artery: Appears to have a stent in the midportion appears to be patent as well HEMODYNAMICS: The LVEDP was 5 mmHg with no significant gradient across aortic valve CONCLUSION: 1. Patent stents in the mid LAD and proximal OM1 and mid RCA 2. Normal left-sided filling pressure POSTPROCEDURE MANAGEMENT: Medical treatment
[2024-04-12] MEDS: SODIUM CHLORIDE 0.9% 1,000 ML IV SCH (14:27)
--- NOTE | 2024-04-12 15:00 | P.PN ---
Subjective Progress Note Date: 04/12/24 patient is a 38-year-old lady with past medical history significant coronary disease status post recent stenting of OM1 and LAD, cardiomyopathy, hypertension, hyperlipidemia who presented to the ER because of chest pain. Patient has been seen few times over the last few weeks with similar complaints. Patient is currently incarcerated, was having chest pain that was central location, nonradiating, no aggravating or relieving factor associated with chest pain. Patient denies any shortness of breath. There is no complaint of palpitation. No complaint orthopnea or PND. Patient also had elevated blood pressure. Because of these symptoms, patient brought to the ER Initial lab work done in the ER showed WBC 6.1, hemoglobin 12.7, platelet count 236, sodium 139, potassium 3.9, BUN 18, creatinine 0.75, troponin 0.012 EKG done in the ER showed heart rate of 52, no ST segment elevation or depression seen, no T-wave inversions seen. Chest x-ray done in the ER Patient admitted to internal medicine service /. Patient seen and examined. Status post cardiac cath showed patent stents in the mid LAD and proximal OM1 and mid RCA REVIEW OF SYSTEMS: CONSTITUTIONAL: No fever, no malaise,. CARDIOVASCULAR: No chest pain, no palpitations, no syncope. PULMONARY: No shortness of breath, no cough, GASTROINTESTINAL: No diarrhea, no nausea, no vomiting, no abdominal pain. NEUROLOGICAL: No headaches, no weakness, PHYSICAL EXAMINATION: GENERAL: The patient is alert and oriented x3, not in any acute distress. Well developed, well nourished. HEENT: Pupils are round and equally reacting to light. EOMI. No scleral icterus. No conjunctival pallor. Normocephalic, atraumatic. No pharyngeal erythema. No thyromegaly. CARDIOVASCULAR: S1 and S2 present. No murmurs, rubs, or gallops. PULMONARY: Chest is clear to auscultation, no wheezing or crackles. ABDOMEN: Soft, nontender, nondistended, normoactive bowel sounds. No palpable organomegaly. MUSCULOSKELETAL: No joint swelling or deformity. EXTREMITIES: No cyanosis, clubbing, or pedal edema. NEUROLOGICAL: Gross neurological examination did not reveal any focal deficits. SKIN: No rashes. Assessment and plan Unstable angina CAD with prior PCI of the LAD and OM1 Cardiomyopathy with a EF between 35 to 40% Hypertension Hyperlipidemia Monitor vital signs Monitor CBC Monitor CMP Continue telemetry monitoring cardiac cath showed patent stents in the mid LAD and proximal OM1 and mid RCA Continue aspirin and Brilinta Continue Farxiga Continue Lopressor, lisinopril Cardiology following Labs and medication were reviewed.. Continue same treatment. Continue with symptomatic treatment. Resume home medication. Monitor labs and vitals. DVT and GI prophylaxis. Further recommendations as per clinical course of the patient Dictation was produced using [employer] dictation software. please excuse any grammatical, word or spelling errors. Objective - Vital Signs Vital signs: Vital Signs Temp 98.4 F 04/12/24 13:36 Pulse 69 04/12/24 14:21 Resp 14 04/12/24 13:36 BP 143/90 04/12/24 14:21 Pulse Ox 96 04/12/24 14:21 FiO2 Intake & Output 04/11/24 04/12/24 04/12/24 18:59 06:59 18:59 Intake Total 720 100 Balance 720 100 Weight 58.967 kg Intake: IV 100 Oral 720 Other: Voiding Method Toilet Toilet # Voids 2 2 - Labs CBC & Chem 7: 04/10/24 23:55 04/10/24 23:55
[2024-04-12] MEDS: ONDANSETRON 4 MG/2 ML VIAL IVP PRN (21:21)
[2024-04-13] MEDS ORDERED: HEPARIN SODIUM,PORCINE 10,000 UNIT in SODIUM CHLORIDE 0.9% 1,000 ML IRRIGATION PRN (07:00)
[2024-04-13] MEDS ORDERED: HEPARIN SODIUM,PORCINE (1 ML) 2,500 UNIT in SODIUM CHLORIDE 0.9% 250 ML IRRIGATION PRN (07:00)
[2024-04-13 07:36] VITALS: BP 122/75; PULSE 66; RESP 15; TEMP 98.1
--- NOTE | 2024-04-13 13:40 | P.DS ---
Providers Date of admission: 04/11/24 00:18 Expected date of discharge: 04/13/24 Attending physician: Dayan Villanueva Consults: 04/11/24 00:18 Consult Physician Routine Consulting Provider: Elyssa Zepeda Consult Reason/Comments: known,cp,htn Do you want consulting provider notified?: Yes Primary care physician: Stated None Hospital Course: Discharge diagnoses; Unstable angina CAD with prior PCI of the LAD and OM1 Cardiomyopathy with a EF between 35 to 40% Hypertension Hyperlipidemia Hospital course; patient is a 38-year-old lady with past medical history significant coronary disease status post recent stenting of OM1 and LAD, cardiomyopathy, hypertension, hyperlipidemia who presented to the ER because of chest pain. Patient has been seen few times over the last few weeks with similar complaints. Patient is currently incarcerated, was having chest pain that was central location, nonradiating, no aggravating or relieving factor associated with chest pain. Patient denies any shortness of breath. There is no complaint of palpitation. No complaint orthopnea or PND. Patient also had elevated blood pressure. Because of these symptoms, patient brought to the ER Initial lab work done in the ER showed WBC 6.1, hemoglobin 12.7, platelet count 236, sodium 139, potassium 3.9, BUN 18, creatinine 0.75, troponin 0.012 EKG done in the ER showed heart rate of 52, no ST segment elevation or depression seen, no T-wave inversions seen. Chest x-ray done in the ER Patient admitted to internal medicine service 04/12. Patient seen and examined. Status post cardiac cath showed patent stents in the mid LAD and proximal OM1 and mid RCA 04/13. Patient seen and examined. Denies any chest pain. Blood pressure is better controlled, currently inSystolic 130s for the last 2 reads. Being discharged stable condition PHYSICAL EXAMINATION: GENERAL: The patient is alert and oriented x3, not in any acute distress. Well developed, well nourished. HEENT: Pupils are round and equally reacting to light. EOMI. No scleral icterus. No conjunctival pallor. Normocephalic, atraumatic. No pharyngeal erythema. No thyromegaly. CARDIOVASCULAR: S1 and S2 present. No murmurs, rubs, or gallops. PULMONARY: Chest is clear to auscultation, no wheezing or crackles. ABDOMEN: Soft, nontender, nondistended, normoactive bowel sounds. No palpable organomegaly. MUSCULOSKELETAL: No joint swelling or deformity. EXTREMITIES: No cyanosis, clubbing, or pedal edema. NEUROLOGICAL: Gross neurological examination did not reveal any focal deficits. SKIN: No rashes. Dictation was produced using [employer]ue[employer] dictation software. please excuse any grammatical, word or spelling errors. Patient Condition at Discharge: Good Plan - Discharge Summary Discharge Rx Participant: Yes New Discharge Prescriptions: New Nitroglycerin Sl Tabs [Nitrostat] 0.4 mg SUBLINGUAL Q5M PRN #30 tab PRN Reason: Chest Pain Continue Dapagliflozin Propanediol [Farxiga] 10 mg PO DAILY #30 tab Famotidine [Pepcid] 20 mg PO DAILY #30 tablet Metoprolol Tartrate [Lopressor] 50 mg PO BID 30 Days #60 tab lisinopriL [Prinivil] 20 mg PO DAILY Ticagrelor [Brilinta] 90 mg PO BID #60 tab Albuterol Nebulized [Ventolin Nebulized] 2.5 mg INHALATION RT-BID PRN PRN Reason: Shortness Of Breath Atorvastatin [Lipitor] 80 mg PO HS Aspirin EC [Ecotrin Low Dose] 81 mg PO HS Escitalopram [Lexapro] 5 mg PO HS Discontinued cloNIDine HCL [Catapres] 0.1 mg PO ONCE Discharge Medication List Dapagliflozin Propanediol [Farxiga] 10 mg PO DAILY #30 tab 03/10/24 [Rx] Famotidine [Pepcid] 20 mg PO DAILY #30 tablet 03/10/24 [Rx] Ticagrelor [Brilinta] 90 mg PO BID #60 tab 03/10/24 [Rx] Albuterol Nebulized [Ventolin Nebulized] 2.5 mg INHALATION RT-BID PRN 03/30/24 [History] Metoprolol Tartrate [Lopressor] 50 mg PO BID 30 Days #60 tab 04/01/24 [Rx] Aspirin EC [Ecotrin Low Dose] 81 mg PO HS 04/11/24 [History] Atorvastatin [Lipitor] 80 mg PO HS 04/11/24 [History] Escitalopram [Lexapro] 5 mg PO HS 04/11/24 [History] lisinopriL [Prinivil] 20 mg PO DAILY 04/11/24 [History] Nitroglycerin Sl Tabs [Nitrostat] 0.4 mg SUBLINGUAL Q5M PRN #30 tab 04/13/24 [Rx] Follow up Appointment(s)/Referral(s): None,Stated [Primary Care Provider] - 1-2 days Discharge Disposition: OTHER INSTITUTION NOT DEFINED
--- NOTE | 2024-04-13 21:31 | PN ---
PROGRESS NOTE SUBJECTIVE: A 38-year-old lady, who was admitted to hospital with unstable angina, underwent cardiac catheterization by Dr. Whalen that revealed patent stents within her coronaries. This morning, she is doing well and is free of symptoms and stable for discharge. OBJECTIVE: GENERAL: Comfortable at rest. VITAL SIGNS: Stable. CHEST: Reveals good air entry bilaterally. HEART: Reveals first and second heart sounds. No gallop. EXTREMITIES: Did not reveal any edema. Right radial artery access site appears normal. MEDICATIONS: The patient is on, 1. Aspirin. 2. Lipitor. 3. Zestril. 4. Lopressor. 5. Brilinta. She will be discharged home on these and have followup with Dr. Whalen. MMNATY / MARIELLAN: [id number] /
== END 2024-04-13 11:33 | disposition home or self-care (01) ==
LOC: EC 23:35 → 6NMEDSUR 04-11 00:18
PROVIDERS: ADMIT Hospitalist; ATTEND Hospitalist
DX: I25.110 Atherosclerotic heart disease of native coronary artery with unstable angina pectoris (principal); I21.4 Non-ST elevation (NSTEMI) myocardial infarction; I42.9 Cardiomyopathy, unspecified; I10 Essential (primary) hypertension; E78.5 Hyperlipidemia, unspecified; F17.200 Nicotine dependence, unspecified, uncomplicated; Z79.02 Long term (current) use of antithrombotics/antiplatelets; Z79.84 Long term (current) use of oral hypoglycemic drugs; Z79.82 Long term (current) use of aspirin; Z79.899 Other long term (current) drug therapy; Z88.6 Allergy status to analgesic agent; Z88.8 Allergy status to other drugs, medicaments and biological substances; Z95.5 Presence of coronary angioplasty implant and graft
CPT/HCPCS: 96361 ×2; 96360; 99285; 36415; 93005; 93458; 85379; 83880; 80053; 83690; 83735; 84484 ×2; 85025; 85610; 85730; 71045; G0378 ×3; C1769; C1894; J2250; J2405; J2003; J1644; Q9967; 99291

== ENCOUNTER 2024-04-17 15:37 | Emergency (ER) | payer OTHER ==
--- NOTE | 2024-04-17 15:53 | ED ---
Chest Pain HPI - General Chief Complaint: Chest Pain Stated Complaint: Chest Pain Time Seen by Provider: 04/17/24 15:51 Source: patient, police, EMS, RN notes reviewed, old records reviewed Mode of arrival: EMS Limitations: no limitations - History of Present Illness Initial Comments: This is a 38-year-old female to the ER for evaluation of chest pain today. Patient comes from incarceration for chest pain and elevated blood pressures. Patient is well-known to this emergency department in the past month for visits for chest pain, patient has had cardiac heart catheterization resulting in stent placement and recent inpatient admission with cardiac catheterization which was normal. Patient have continued chest pain here in the ER though improved MD Complaint: chest pain -: days(s) Onset: during rest, during exertion Pain Location: substernal Pain Radiation: none Severity: mild Severity scale (1-10): 3 Quality: tightness Consistency: intermittent Improves With: nothing Worsens With: nothing Context: recent surgery Anginal Symptoms: other Other Symptoms: palpitations Treatments Prior to Arrival: none - Related Data Home Medications Medication Instructions Recorded Confirmed Albuterol Nebulized [Ventolin 2.5 mg INHALATION RT-BID PRN 03/30/24 04/11/24 Nebulized] Aspirin EC [Ecotrin Low Dose] 81 mg PO HS 04/11/24 04/11/24 Atorvastatin [Lipitor] 80 mg PO HS 04/11/24 04/11/24 Escitalopram [Lexapro] 5 mg PO HS 04/11/24 04/11/24 lisinopriL [Prinivil] 20 mg PO DAILY 04/11/24 04/11/24 Previous Rx's Medication Instructions Recorded Dapagliflozin Propanediol [Farxiga] 10 mg PO DAILY #30 tab 03/10/24 Famotidine [Pepcid] 20 mg PO DAILY #30 tablet 03/10/24 Ticagrelor [Brilinta] 90 mg PO BID #60 tab 03/10/24 Metoprolol Tartrate [Lopressor] 50 mg PO BID 30 Days #60 tab 04/01/24 Nitroglycerin Sl Tabs [Nitrostat] 0.4 mg SUBLINGUAL Q5M PRN #30 tab 04/13/24 amLODIPine [Norvasc] 5 mg PO DAILY #30 tab 04/17/24 Allergies Allergy/AdvReac Type Severity Reaction Status Date / Time pregabalin [From Lyrica] AdvReac CHEST Verified 04/17/24 15:53 TIGHTENING EXCEDRIN AdvReac CHEST Uncoded 04/17/24 15:53 TIGHTENING Review of Systems ROS Statement: Those systems with pertinent positive or pertinent negative responses have been documented in the HPI. ROS Other: All systems not noted in ROS Statement are negative. 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 Unsure if she has a leaky valve. History of Any Multi-Drug Resistant Organisms: None Reported Past Surgical History: Appendectomy, Section, Cholecystectomy, Heart Catheterization With Stent Additional Past Surgical History / Comment(s): CABG, Left knee surgeries, endometrosis surgery. stent x 1 Past Anesthesia/Blood Transfusion Reactions: No Reported Reaction Date of Last Stent Placement:: 03/29/24 Past Psychological History: Anxiety, Bipolar Smoking Status: Current every day smoker Past Drug Use History: Marijuana, Methamphetamine - Past Family History Mother Additional Family Medical History / Comment(s): Grandmother had a pacemaker Father Family Medical History: Cancer Additional Family Medical History / Comment(s): colon cancer, Breast cancer runs on his side of the family. General Exam General appearance: alert, in no apparent distress Head exam: Present: atraumatic, normocephalic, normal inspection Eye exam: Present: normal appearance, PERRL, EOMI. Absent: scleral icterus, conjunctival injection, periorbital swelling ENT exam: Present: normal exam, mucous membranes moist Neck exam: Present: normal inspection. Absent: tenderness, meningismus, lymphadenopathy Respiratory exam: Present: normal lung sounds bilaterally. Absent: respiratory distress, wheezes, rales, rhonchi, stridor Cardiovascular Exam: Present: regular rate, normal rhythm, normal heart sounds. Absent: systolic murmur, diastolic murmur, rubs, gallop, clicks GI/Abdominal exam: Present: soft, normal bowel sounds. Absent: distended, tenderness, guarding, rebound, rigid Extremities exam: Present: normal inspection, full ROM, normal capillary refill. Absent: tenderness, pedal edema, joint swelling, calf tenderness Back exam: Present: normal inspection Neurological exam: Present: alert, oriented X3, CN II-XII intact Psychiatric exam: Present: normal affect, normal mood Skin exam: Present: warm, dry, intact, normal color. 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 sent in by a medical professional or institution (, PA, ADVERTISING PRODUCTION MANAGER, urgent care, hospital, or correction...) When possible be specific @ -no Did you speak to anyone other than the patient for history (EMS, parent, family, police, friend...)? What history was obtained from this source @ -no Did you review nursing and triage notes (agree or disagree)? Why? @ -agree Are old charts reviewed (outside hosp., previous admission, EMS record, old EKG, old radiological studies, urgent care reports/EKG's, correction records)? Report findings @ -yes Differential Diagnosis (chest pain, altered mental status, abdominal pain women, abdominal pain men, vaginal bleeding, weakness, fever, dyspnea, syncope, headache, dizziness, GI bleed, back pain, seizure, CVA, palpatations, mental health, musculoskeletal)? @ -prior EKG interpreted by me (3pts min.). @ -yes X-rays interpreted by me (1pt min.). @ -yes negative for acute disease CT interpreted by me (1pt min.). @ -no U/S interpreted by me (1pt. min.). @ -no What testing was considered but not performed or refused? (CT, X-rays, U/S, la bs)? Why? @ -none What meds were considered but not given or refused? Why? @ -none Did you discuss the management of the patient with other professionals (professionals i.e. , PA, ADVERTISING PRODUCTION MANAGER, lab, RT, psych nurse, social media campaign manager, learning and development specialist, teacher, parachute/combatant diver officer, case repairer)? Give summary @ -no Was smoking cessation discussed for >3mins.? @ -no Was critical care preformed (if so, how long)? @ -no Were there social determinants of health that impacted care today? How? (Homelessness, low income, unemployed, alcoholism, drug addiction, transportation, low edu. Level, literacy, decrease access to med. care, shelter, rehab)? @ -none Was there de-escalation of care discussed even if they declined (Discuss DNR or withdrawal of care, Hospice)? DNR status @ -no What co-morbidities impacted this encounter? (DM, HTN, Smoking, COPD, CAD, Cancer, CVA, ARF, Chemo, Hep., AIDS, mental health diagnosis, sleep apnea, morbid obesity)? @ -none Was patient admitted / discharged? Hospital course, mention meds given and route, prescriptions, significant lab abnormalities, going to OR and other pertinent info. @ - Undiagnosed new problem with uncertain prognosis? @ -no Drug Therapy requiring intensive monitoring for toxicity (Heparin, Nitro, Insulin, Cardizem)? @ -no Were any procedures done? @ -no Diagnosis/symptom? @ - Acute, or Chronic, or Acute on Chronic? @ -Acute Uncomplicated (without systemic symptoms) or Complicated (systemic symptoms)? @ -Complicated Side effects of treatment? @ -no Exacerbation, Progression, or Severe Exacerbation? @ -exacerbation Poses a threat to life or bodily function? How? (Chest pain, [place], [place], pneumonia, PE, COPD, DKA, ARF, appy, cholecystitis, CVA, Diverticulitis, Homicidal, Suicidal, threat to staff... and all critical care pts) @ -yes Reevaluation #5: Differential Chest Pain: Stable Angina, Unstable Angina, STEMI, NSTEMI Aortic Dissection, Pneumothorax, Musculoskeletal, Esophageal Spasm GERD, Cholecystitis, Pancreatitis, Zoster, this is not meant to be an all-inclusive list. Chest Pain MDM - MDM 38 female to the ER with chest pain patient is medically cleared to return to incarceration Disposition Clinical Impression: Chest pain Disposition: HOME SELF-CARE Condition: Good Instructions (If sedation given, give patient instructions): Chest Pain (ED) Prescriptions: amLODIPine [Norvasc] 5 mg PO DAILY #30 tab Is patient prescribed a controlled substance at d/c from ED?: No Referrals: None,Stated [Primary Care Provider] - 1-2 days Time of Disposition: 17:00
[2024-04-17] MEDS: NITROGLYCERIN OINT 1 INCH/GM PACKET TOPICAL STA (16:11)
[2024-04-17] MEDS: amLODIPine 5 MG TAB PO STA (16:11)
[2024-04-17] MEDS: SODIUM CHLORIDE 0.9% 500 ML 500 ML IV STA (16:21)
--- NOTE | 2024-04-17 16:29 | XR ---
EXAMINATION TYPE: XR chest 1V portable DATE OF EXAM: 04/17/2024 4:25 PM COMPARISON: Chest radiographs from 04/10/2024 CLINICAL INDICATION: Female, 38 years old with history of chest pain; [facility] TECHNIQUE: XR chest 1V portable Frontal view of the chest. FINDINGS: Lungs/Pleura: There is no evidence of pleural effusion, focal consolidation, or pneumothorax. Pulmonary vascularity: Unremarkable. Heart/mediastinum: Cardiomediastinal silhouette is unremarkable. Musculoskeletal: No acute osseous pathology. Midline sternotomy wires are noted. IMPRESSION: No acute cardiopulmonary disease/process. [facility], , 04/17/2024 4:26 PM
[2024-04-17] MEDS: ENALAPRILAT 1.25 MG/ML 1 ML VIAL IVP STA (16:30)
[2024-04-17 16:33] LABS: Basophils % (A) 1 %; Eosinophils # (A) 0.2 k/uL (0-0.7); Eosinophils % (A) 4 %; HCT 40.7 % (34.0-46.0); HGB 13.6 gm/dL (11.4-16.0); Lymphocytes # (A) 2.3 k/uL (1.0-4.8); Lymphocytes % (A) 35 %; MCH 31.1 pg (25.0-35.0); MCHC 33.5 g/dL (31.0-37.0); Mean Platelet Volume 8.8; Monocytes # (A) 0.5 k/uL (0-1.0); Monocytes % (A) 8 %; Neutrophils # (A) 3.4 k/uL (1.3-7.7); Neutrophils % (A) 51 %; Platelet Count 270 k/uL (150-450); RBC 4.38 m/uL (3.80-5.40); RDW 12.6 % (11.5-15.5); WBC 6.6 k/uL (3.8-10.6)
[2024-04-17 16:42] LABS: ALT 58 U/L (4-34); AST 38 U/L (14-36); African American GFR (CKD) >90 (>60 ml/min/1.73 sqM); Albumin 4.5 g/dL (3.5-5.0); Alkaline Phosphatase 71 U/L (38-126); Anion Gap 11 mmol/L; Blood Urea Nitrogen 16 mg/dL (7-17); Calcium 9.5 mg/dL (8.4-10.2); Carbon Dioxide 22 mmol/L (22-30); Chloride 107 mmol/L (98-107); Glucose 84 mg/dL (74-99); Lipase 167 U/L (23-300); Magnesium 2.1 mg/dL (1.6-2.3); Non-African American GFR(CKD) >90 (>60 ml/min/1.73 sqM); Potassium 4.2 mmol/L (3.5-5.1); Sodium 140 mmol/L (137-145); Total Bilirubin 0.5 mg/dL (0.2-1.3); Total Protein 7.1 g/dL (6.3-8.2)
[2024-04-17 16:50] LABS: NT-Pro-B-Type Natriuretic Pept 919 pg/mL
[2024-04-17 16:52] LABS: Partial Thromboplastin Time 23.7 sec (22.0-30.0); Prothrombin Time 10.9 sec (10.0-12.5)
[2024-04-17 17:23] VITALS: RESP 15
[2024-04-17 18:24] VITALS: BP 151/89; PULSE 64; TEMP 98.7
== END 2024-04-17 18:23 | disposition home or self-care (01) ==
LOC: EC 15:37
DX: R07.9 Chest pain, unspecified (principal); F17.200 Nicotine dependence, unspecified, uncomplicated; Z88.8 Allergy status to other drugs, medicaments and biological substances
CPT/HCPCS: 36415; 71045; 80053; 83690; 83735; 83880; 84484; 85025; 85610; 85730; 93005; 96361; 96374; 99285

== ENCOUNTER 2024-05-19 18:48 | Emergency (ER) | payer OTHER ==
--- NOTE | 2024-05-19 18:56 | ED ---
Chest Pain HPI - General Stated Complaint: chest pain Time Seen by Provider: 05/19/24 18:55 Source: RN notes reviewed, old records reviewed Mode of arrival: EMS Limitations: no limitations - History of Present Illness Initial Comments: This is a 38-year-old female to the ER for evaluation of chest pain history of ACS MD Complaint: chest pain -: days(s) Pain Location: left chest, epigastric Pain Radiation: LUE Severity: moderate Severity scale (1-10): 7 Quality: sharp Consistency: constant Improves With: nothing Worsens With: nothing Anginal Symptoms: nausea Other Symptoms: palpitations - Related Data Home Medications Medication Instructions Recorded Confirmed Albuterol Nebulized [Ventolin 2.5 mg INHALATION RT-BID PRN 03/30/24 04/11/24 Nebulized] Aspirin EC [Ecotrin Low Dose] 81 mg PO HS 04/11/24 04/11/24 Atorvastatin [Lipitor] 80 mg PO HS 04/11/24 04/11/24 Escitalopram [Lexapro] 5 mg PO HS 04/11/24 04/11/24 lisinopriL [Prinivil] 20 mg PO DAILY 04/11/24 04/11/24 Previous Rx's Medication Instructions Recorded Dapagliflozin Propanediol [Farxiga] 10 mg PO DAILY #30 tab 03/10/24 Famotidine [Pepcid] 20 mg PO DAILY #30 tablet 03/10/24 Ticagrelor [Brilinta] 90 mg PO BID #60 tab 03/10/24 Metoprolol Tartrate [Lopressor] 50 mg PO BID 30 Days #60 tab 04/01/24 Nitroglycerin Sl Tabs [Nitrostat] 0.4 mg SUBLINGUAL Q5M PRN #30 tab 04/13/24 amLODIPine [Norvasc] 5 mg PO DAILY #30 tab 04/17/24 Allergies Allergy/AdvReac Type Severity Reaction Status Date / Time pregabalin [From Lyrica] AdvReac CHEST Verified 05/19/24 19:03 TIGHTENING EXCEDRIN AdvReac CHEST Uncoded 05/19/24 19:03 TIGHTENING Review of Systems ROS Statement: Those systems with pertinent positive or pertinent negative responses have been documented in the HPI. ROS Other: All systems not noted in ROS Statement are negative. 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 Unsure if she has a leaky valve. History of Any Multi-Drug Resistant Organisms: None Reported Past Surgical History: Appendectomy, Section, Cholecystectomy, Heart Catheterization With Stent Additional Past Surgical History / Comment(s): CABG, Left knee surgeries, endometrosis surgery. stent x 1 Past Anesthesia/Blood Transfusion Reactions: No Reported Reaction Date of Last Stent Placement:: 03/29/24 Past Psychological History: Anxiety, Bipolar Smoking Status: Current every day smoker Past Drug Use History: Marijuana, Methamphetamine - Past Family History Mother Additional Family Medical History / Comment(s): Grandmother had a pacemaker Father Family Medical History: Cancer Additional Family Medical History / Comment(s): colon cancer, Breast cancer runs on his side of the family. General Exam General appearance: alert, in no apparent distress Head exam: Present: atraumatic, normocephalic, normal inspection Eye exam: Present: normal appearance, PERRL, EOMI. Absent: scleral icterus, con junctival injection, periorbital swelling ENT exam: Present: normal exam, mucous membranes moist Neck exam: Present: normal inspection. Absent: tenderness, meningismus, lymphadenopathy Respiratory exam: Present: normal lung sounds bilaterally. Absent: respiratory distress, wheezes, rales, rhonchi, stridor Cardiovascular Exam: Present: regular rate, normal rhythm, normal heart sounds. Absent: systolic murmur, diastolic murmur, rubs, gallop, clicks GI/Abdominal exam: Present: soft, normal bowel sounds. Absent: distended, tenderness, guarding, rebound, rigid Extremities exam: Present: normal inspection, full ROM, normal capillary refill. Absent: tenderness, pedal edema, joint swelling, calf tenderness Back exam: Present: normal inspection Neurological exam: Present: alert, oriented X3, CN II-XII intact Psychiatric exam: Present: normal affect, normal mood Skin exam: Present: warm, dry, intact, normal color. Absent: rash Course Vital Signs 05/19/24 05/19/24 18:59 20:00 Temperature 98.0 F Pulse Rate 60 55 L Respiratory 18 18 Rate Blood Pressure 129/71 120/69 O2 Sat by Pulse 98 96 Oximetry - Reevaluation(s) Reevaluation #1: 05/19/24 19:32 Medical records reviewed Reevaluation #2: 05/19/24 22:17 Patient still with episodic chest pain here in the ER Reevaluation #3: 05/19/24 22:17 Patient informed of results and questions answered Reevaluation #4: Was pt. sent in by a medical professional or institution (LEONEL Canas, TOP LIFT NAILER, urgent care, hospital, or detention...) When possible be specific @ -no Did you speak to anyone other than the patient for history (EMS, parent, family, police, friend...)? What history was obtained from this source @ -no Did you review nursing and triage notes (agree or disagree)? Why? @ -agree Are old charts reviewed (outside hosp., previous admission, EMS record, old EKG, old radiological studies, urgent care reports/EKG's, detention records)? Report findings @ -yes Differential Diagnosis (chest pain, altered mental status, abdominal pain women, abdominal pain men, vaginal bleeding, weakness, fever, dyspnea, syncope, headache, dizziness, GI bleed, back pain, seizure, CVA, palpatations, mental h ealth, musculoskeletal)? @ -prior EKG interpreted by me (3pts min.). @ -yes X-rays interpreted by me (1pt min.). @ -yes negative for acute disease CT interpreted by me (1pt min.). @ -no U/S interpreted by me (1pt. min.). @ -no What testing was considered but not performed or refused? (CT, X-rays, U/S, labs)? Why? @ -none What meds were considered but not given or refused? Why? @ -none Did you discuss the management of the patient with other professionals (professionals i.e. LEONEL Canas, TOP LIFT NAILER, lab, RT, psych nurse, social science professor, manager creative, teacher, strike warfare/missile systems officer, trimming caser)? Give summary @ -no Was smoking cessation discussed for >3mins.? @ -no Was critical care preformed (if so, how long)? @ -no Were there social determinants of health that impacted care today? How? (Homelessness, low income, unemployed, alcoholism, drug addiction, transportation, low edu. Level, literacy, decrease access to med. care, fpc, rehab)? @ -none Was there de-escalation of care discussed even if they declined (Discuss DNR or withdrawal of care, Hospice)? DNR status @ -no What co-morbidities impacted this encounter? (DM, HTN, Smoking, COPD, CAD, Cancer, CVA, ARF, Chemo, Hep., AIDS, mental health diagnosis, sleep apnea, morbid obesity)? @ -none Was patient admitted / discharged? Hospital course, mention meds given and route, prescriptions, significant lab abnormalities, going to OR and other p ertinent info. @ - Undiagnosed new problem with uncertain prognosis? @ -no Drug Therapy requiring intensive monitoring for toxicity (Heparin, Nitro, Insulin, Cardizem)? @ -no Were any procedures done? @ -no Diagnosis/symptom? @ - Acute, or Chronic, or Acute on Chronic? @ -Acute Uncomplicated (without systemic symptoms) or Complicated (systemic symptoms)? @ -Complicated Side effects of treatment? @ -no Exacerbation, Progression, or Severe Exacerbation? @ -exacerbation Poses a threat to life or bodily function? How? (Chest pain, [place], [place], pneumonia, PE, COPD, DKA, ARF, appy, cholecystitis, CVA, Diverticulitis, Homicidal, Suicidal, threat to staff... and all critical care pts) @ -yes Reevaluation #5: Differential Chest Pain: Stable Angina, Unstable Angina, STEMI, NSTEMI Aortic Dissection, Pneumothorax, Musculoskeletal, Esophageal Spasm GERD, Cholecystitis, Pancreatitis, Zoster, this is not meant to be an all-inclusive list. Chest Pain MDM - MDM 38 female to ER with chest pain nonspecific chest pain here in the ER troponin negative x 2 patient will be discharged home Disposition Clinical Impression: Chest pain Disposition: HOME SELF-CARE Condition: Fair Instructions (If sedation given, give patient instructions): Chest Pain (ED) Is patient prescribed a controlled substance at d/c from ED?: No Referrals: None,Stated [Primary Care Provider] - 1-2 days Time of Disposition: 23:00
[2024-05-19 19:08] VITALS: TEMP 98
[2024-05-19 19:23] LABS: Basophils % (A) 1 %; Eosinophils # (A) 0.2 k/uL (0-0.7); Eosinophils % (A) 3 %; HCT 39.4 % (34.0-46.0); HGB 12.5 gm/dL (11.4-16.0); Lymphocytes # (A) 2.5 k/uL (1.0-4.8); Lymphocytes % (A) 37 %; MCH 29.8 pg (25.0-35.0); MCHC 31.7 g/dL (31.0-37.0); MCV 94.1 fL (80.0-100.0); Mean Platelet Volume 8.9; Monocytes # (A) 0.5 k/uL (0-1.0); Monocytes % (A) 7 %; Neutrophils # (A) 3.3 k/uL (1.3-7.7); Neutrophils % (A) 50 %; Platelet Count 258 k/uL (150-450); RBC 4.18 m/uL (3.80-5.40); WBC 6.6 k/uL (3.8-10.6)
[2024-05-19 19:31] LABS: ALT 53 U/L (4-34); AST 34 U/L (14-36); African American GFR (CKD) >90 (>60 ml/min/1.73 sqM); Alkaline Phosphatase 60 U/L (38-126); Anion Gap 9 mmol/L; Blood Urea Nitrogen 14 mg/dL (7-17); Carbon Dioxide 24 mmol/L (22-30); Chloride 105 mmol/L (98-107); Glucose 126 mg/dL (74-99); Lipase 148 U/L (23-300); Magnesium 2.1 mg/dL (1.6-2.3); Non-African American GFR(CKD) 82 (>60 ml/min/1.73 sqM); Potassium 3.6 mmol/L (3.5-5.1); Sodium 138 mmol/L (137-145); Total Bilirubin 0.4 mg/dL (0.2-1.3); Total Protein 6.6 g/dL (6.3-8.2)
[2024-05-19 19:36] LABS: INR 0.9 (<1.2); Partial Thromboplastin Time 22.6 sec (22.0-30.0); Prothrombin Time 10.5 sec (10.0-12.5)
[2024-05-19 19:40] LABS: NT-Pro-B-Type Natriuretic Pept 351 pg/mL
--- NOTE | 2024-05-19 19:43 | XR ---
EXAMINATION TYPE: XR chest 2V DATE OF EXAM: 05/19/2024 7:38 PM COMPARISON: Previous chest radiograph 04/17/2023. CLINICAL INDICATION: Female, 38 years old with history of Chest Pain; [facility] TECHNIQUE: XR chest 2V Frontal and lateral views of the chest. FINDINGS: Lungs/Pleura: There is no evidence of pleural effusion, focal consolidation, or pneumothorax. Pulmonary vascularity: Unremarkable. Heart/mediastinum: Cardiomediastinal silhouette is unremarkable. Median sternotomy wires noted. Musculoskeletal: No acute osseous pathology. Other findings: None IMPRESSION: No acute cardiopulmonary disease/process. [facility], , 05/19/2024 7:41 PM
[2024-05-19 22:36] VITALS: PULSE 58
[2024-05-19 22:37] VITALS: BP 123/71; RESP 18
== END 2024-05-19 23:04 | disposition home or self-care (01) ==
LOC: EC 18:48
DX: R07.9 Chest pain, unspecified (principal); F17.200 Nicotine dependence, unspecified, uncomplicated; Z88.8 Allergy status to other drugs, medicaments and biological substances
CPT/HCPCS: 36415; 71046; 80053; 83690; 83735; 83880; 84484; 85025; 85379; 85610; 85730; 93005; 99285

== ENCOUNTER 2024-07-26 22:44 | Inpatient (IN) | payer OTHER ==
--- NOTE | 2024-07-26 23:20 | ED ---
Chest Pain HPI - General Chief Complaint: Chest Pain Stated Complaint: Chest Pain Time Seen by Provider: 07/26/24 22:56 Source: EMS Mode of arrival: EMS Limitations: no limitations - History of Present Illness Initial Comments: This patient is 39-year-old woman with history of previous stenting, who presents with complaint of chest pain initially in the left upper chest now across the bilateral upper chest and radiating to back. She states that reminds her of the pain she had when she required a stent. She was at rest when it came on approximately 2 hours ago. No associated symptoms. Patient called EMS when the pain persisted and they did give aspirin. MD Complaint: chest pain Onset/Timin -: hour(s) Onset: during rest Pain Location: left chest, right chest Pain Radiation: back - Related Data Home Medications Medication Instructions Recorded Confirmed Aspirin EC [Ecotrin Low Dose] 81 mg PO HS 04/11/24 07/27/24 Atorvastatin [Lipitor] 80 mg PO HS 04/11/24 07/27/24 Escitalopram [Lexapro] 10 mg PO DAILY 07/27/24 07/27/24 lisinopriL [Zestril] 10 mg PO DAILY 07/27/24 07/27/24 Previous Rx's Medication Instructions Recorded amLODIPine [Norvasc] 5 mg PO DAILY #30 tab 04/17/24 Clopidogrel [Plavix] 75 mg PO DAILY #30 tab 07/28/24 Allergies Allergy/AdvReac Type Severity Reaction Status Date / Time pregabalin [From Lyrica] AdvReac CHEST Verified 07/27/24 07:57 TIGHTENING EXCEDRIN AdvReac CHEST Uncoded 07/26/24 22:55 TIGHTENING Review of Systems ROS Statement: Those systems with pertinent positive or pertinent negative responses have been documented in the HPI. ROS Other: All systems not noted in ROS Statement are negative. Constitutional: Denies: fever, chills, weakness Respiratory: Denies: cough, dyspnea Cardiovascular: Reports: chest pain. Denies: palpitations, dyspnea on exertion, orthopnea, edema, syncope Gastrointestinal: Denies: abdominal pain, nausea, vomiting, diarrhea Genitourinary: Denies: dysuria, frequency, hematuria Musculoskeletal: Denies: back pain Skin: Denies: rash Neurological: Denies: headache, weakness EKG Findings - EKG Comments: EKG Findings:: The patient does have inferolateral T inversions which were existing previously - EKG Results: EKG: interpreted by ERMD, sinus rhythm (Rate 89 bpm), normal axis - Blocks, [place], Hypertrophy, ST Abn: QRS axis and voltage: low voltage (<0.5 MV total QRS and <1.0 MV in each precordial lead) Past Medical History Past Medical History: Asthma, Hypertension Additional Past Medical History / Comment(s): lupus, fibromyalaga, 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 Unsure if she has a leaky valve. History of Any Multi-Drug Resistant Organisms: None Reported Past Surgical History: Appendectomy, Section, Cholecystectomy, Heart Catheterization With Stent Additional Past Surgical History / Comment(s): CABG, Left knee surgeries, endometrosis surgery. stent x 1 Past Anesthesia/Blood Transfusion Reactions: No Reported Reaction Date of Last Stent Placement:: 03/29/24 Past Psychological History: Anxiety, Bipolar Smoking Status: Current every day smoker Past Drug Use History: Marijuana, Methamphetamine - Past Family History Mother Additional Family Medical History / Comment(s): Grandmother had a pacemaker Father Family Medical History: Cancer Additional Family Medical History / Comment(s): colon cancer, Breast cancer runs on his side of the family. General Exam General appearance: alert, in no apparent distress Head exam: Present: atraumatic, normocephalic Eye exam: Present: normal appearance. Absent: scleral icterus, conjunctival injection ENT exam: Present: normal oropharynx Neck exam: Present: normal inspection Respiratory exam: Present: normal lung sounds bilaterally. Absent: respiratory distress, wheezes, rales, rhonchi, stridor, accessory muscle use Cardiovascular Exam: Present: regular rate, normal rhythm, normal heart sounds. Absent: systolic murmur, diastolic murmur, rubs, gallop GI/Abdominal exam: Present: soft. Absent: distended, tenderness, guarding, rebound, rigid, mass Extremities exam: Present: normal inspection, normal capillary refill. Absent: pedal edema, calf tenderness Back exam: Present: normal inspection. Absent: CVA tenderness (R), CVA tenderness (L) Neurological exam: Present: alert Skin exam: Present: warm, dry, intact, normal color. Absent: rash Course Vital Signs 07/26/24 07/27/24 07/27/24 22:46 00:29 00:41 Temperature 98.0 F Pulse Rate 89 77 75 Respiratory 20 18 Rate Blood Pressure 150/88 140/84 139/83 O2 Sat by Pulse 97 98 99 Oximetry 07/27/24 07/27/24 07/27/24 01:00 02:00 03:00 Temperature Pulse Rate 79 68 73 Respiratory Rate Blood Pressure 134/80 147/83 143/86 O2 Sat by Pulse 97 97 98 Oximetry 07/27/24 07/27/24 07/27/24 03:42 05:45 12:20 Temperature 97.8 F 97.9 F Pulse Rate 78 77 71 Respiratory 18 14 18 Rate Blood Pressure 139/81 145/84 137/86 O2 Sat by Pulse 96 99 99 Oximetry Chest Pain MDM - MDM This patient is a 39-year-old woman with history of coronary artery disease having chest pain that is concerning for acute coronary syndrome. The patient's initial troponin is minimally elevated. I was going to place the patient on heparin but after discussion she does not want to take this medication as she re ports she had received TNKase last month and reportedly had some bleeding in the brain this did not occur at this facility and no CT to compare with. Patient is admitted for serial cardiac enzymes, telemetry monitoring, cardiology consultation. Patient has had marked improvement in symptoms does continue to have mild chest sensation but nearly gone now. The patient had chest x-ray that I interpreted as negative for acute infiltrate, pneumothorax, congestive heart failure Was pt. sent in by a medical professional or institution (LEONEL Canas, LEVEL VIAL SETTER, urgent care, hospital, or assisted...) When possible be specific @ -[No] Did you speak to anyone other than the patient for history (EMS, parent, family, police, friend...)? What history was obtained from this source @ -[No] Did you review nursing and triage notes (agree or disagree)? Why? @ -[I reviewed and agree with nursing and triage notes] Were old charts reviewed (outside hosp., previous admission, EMS record, old EKG, old radiological studies, urgent care reports/EKG's, assisted records)? Report findings @ -[Yes, the old charts were reviewed] Differential Diagnosis (chest pain, altered mental status, abdominal pain women, abdominal pain men, vaginal bleeding, weakness, fever, dyspnea, syncope, headache, dizziness, GI bleed, back pain, seizure, CVA, palpatations, mental health, musculoskeletal)? @ -[Differential Chest Pain: Stable Angina, Unstable Angina, STEMI, NSTEMI Aortic Dissection, Pneumothorax, Musculoskeletal, Esophageal Spasm GERD, Cholecystitis, Pancreatitis, Zoster, this is not meant to be an all-inclusive list. EKG interpreted by me (3pts min.). @ -[I interpreted as above] X-rays interpreted by me (1pt min.). @ -[I interpreted as above CT interpreted by me (1pt min.). @ -[None done] U/S interpreted by me (1pt. min.). @ -[None done] What testing was considered but not performed or refused? (CT, X-rays, U/S, labs)? Why? @ -[None] What meds were considered but not given or refused? Why? @ -[See the above note Did you discuss the management of the patient with other professionals (professionals i.e. , PA, LEVEL VIAL SETTER, lab, RT, psych nurse, secondary social studies teacher, teacher learning disabled, teacher, mobile patrol officer, caser up)? Give summary @ -[Case discussed with admitting physician and treatment recommendations incorporated Was smoking cessation discussed for >3mins.? @ -[Yes, smoking cessation discussed Was critical care preformed (if so, how long)? @ -[Yes, 35 minutes Were there social determinants of health that impacted care today? How? (Homelessness, low income, unemployed, alcoholism, drug addiction, transportation, low edu. Level, literacy, decrease access to med. care, alf, rehab)? @ -[No] Was there de-escalation of care discussed even if they declined (Discuss DNR or withdrawal of care, Hospice)? DNR status @ -[No] What co-morbidities impacted this encounter? (DM, HTN, Smoking, COPD, CAD, Cancer, CVA, ARF, Chemo, Hep., AIDS, mental health diagnosis, sleep apnea, morbid obesity)? @ -[History of CAD, hypertension, cardiomyopathy, smoking Was patient admitted / discharged? Hospital course, mention meds given and route, prescriptions, significant lab abnormalities, going to OR and other pertinent info. @ -[See above Undiagnosed new problem with uncertain prognosis? @ -[No] Drug Therapy requiring intensive monitoring for toxicity (Heparin, Nitro, Insulin, Cardizem)? @ -[No] Were any procedures done? @ -[No] Diagnosis/symptom? @ -[Acute chest pain Acute NSTEMI Acute, or Chronic, or Acute on Chronic? @ -[Acute Uncomplicated (without systemic symptoms) or Complicated (systemic symptoms)? @ -[Uncomplicated Side effects of treatment? @ -[No] Exacerbation, Progression, or Severe Exacerbation? @ -[No] Poses a threat to life or bodily function? How? (Chest pain, [place], [place], pneumonia, PE, COPD, DKA, ARF, appy, cholecystitis, CVA, Diverticulitis, Homicidal, Suicidal, threat to staff... and all critical care pts) @ -Yes, requires further cardiology evaluation and treatment All treatments are based on ideal body weight as in ED triage Disposition Clinical Impression: ACS (acute coronary syndrome) Disposition: ADMITTED IP TO THIS HOSP Condition: Serious Is patient prescribed a controlled substance at d/c from ED?: No
[2024-07-26 23:47] LABS: Basophils # (A) 0.05 10*3/uL (0.00-0.10); Basophils % (A) 0.7 %; Eosinophils # (A) 0.26 10*3/uL (0.04-0.35); Eosinophils % (A) 3.5 %; HGB 12.8 g/dL (12.0-15.0); Lymphocytes # (A) 3.01 10*3/uL (0.90-5.00); Lymphocytes % (A) 40.1 %; MCH 28.9 pg (27.0-32.0); MCHC 32.8 g/dL (32.0-37.0); Mean Platelet Volume 11.5 fL (9.5-12.2); Monocytes # (A) 0.52 10*3/uL (0.20-1.00); Monocytes % (A) 6.9 %; Neutrophils # (A) 3.65 10*3/uL (1.80-7.70); Neutrophils % (A) 48.7 %; Platelet Count 249 10*3/uL (140-440); RBC 4.43 10*6/uL (4.10-5.20); RDW 12.8 % (11.5-14.5)
[2024-07-27 00:03] LABS: INR 0.9 (<1.2); Partial Thromboplastin Time 22.1 sec (22.0-30.0); Prothrombin Time 10.2 sec (10.0-12.5)
[2024-07-27 00:05] LABS: ALT 26 U/L (4-34); AST 24 U/L (14-36); African American GFR (CKD) >90 (>60 ml/min/1.73 sqM); Albumin 3.6 g/dL (3.5-5.0); Alkaline Phosphatase 78 U/L (38-126); Anion Gap 8 mmol/L; Blood Urea Nitrogen 18 mg/dL (7-17); Calcium 8.9 mg/dL (8.4-10.2); Carbon Dioxide 24 mmol/L (22-30); Chloride 105 mmol/L (98-107); Glucose 80 mg/dL (74-99); Non-African American GFR(CKD) >90 (>60 ml/min/1.73 sqM); Potassium 3.4 mmol/L (3.5-5.1); Sodium 137 mmol/L (137-145); Total Bilirubin 0.3 mg/dL (0.2-1.3); Total Protein 6.3 g/dL (6.3-8.2)
[2024-07-27] MEDS ORDERED: HEPARIN SODIUM 1,000 UN/ML (10ML VL) IV PRN (00:21)
[2024-07-27] MEDS: NITROGLYCERIN SL TABS 0.4 MG TAB SUBLINGUAL STA (00:43)
[2024-07-27] MEDS: MORPHINE SULFATE 4 MG/ML SYRINGE IV STA (00:44)
--- NOTE | 2024-07-27 01:33 | XR ---
EXAM: XR Chest, 2 Views CLINICAL HISTORY: ITS.REASON XR Reason: Chest Pain TECHNIQUE: Frontal and lateral views of the chest. COMPARISON: No relevant prior studies available. FINDINGS: Lungs: Unremarkable. No consolidation. Pleural space: Unremarkable. No pneumothorax. Heart: Unremarkable. No cardiomegaly. Mediastinum: Unremarkable. Bones/joints: Sternotomy wires. IMPRESSION: No consolidation.
[2024-07-27] MEDS: HYDROmorphone 0.5 MG/0.5 ML SYRINGE IVP STA (03:45)
[2024-07-27] MEDS: NITROGLYCERIN OINT 1 INCH/GM PACKET TOPICAL STA (03:49)
[2024-07-27] MEDS ORDERED: NITROGLYCERIN SL TABS 0.4 MG TAB SUBLINGUAL PRN ×2 (04:46→08:34)
[2024-07-27] MEDS ORDERED: ALBUTEROL NEBULIZED 2.5 MG/3 ML INHALATION PRN (04:48)
[2024-07-27] MEDS: HEPARIN SODIUM 1,000 UN/ML (10ML VL) IV ONE (07:28)
[2024-07-27] MEDS: HEPARIN SOD,PORK IN 0.45% NACL 25,000 UNIT in 0.45% NACL 1 250ML.BAG IV SCH (07:30)
[2024-07-27] MEDS ORDERED: ALPRAZolam 0.25 MG TAB PO PRN (08:34)
[2024-07-27] MEDS ORDERED: ALPRAZolam 0.5 MG TAB PO PRN (08:34)
[2024-07-27] MEDS ORDERED: lisinopriL 10 MG TAB PO SCH (09:00)
[2024-07-27] MEDS ORDERED: TICAGRELOR 90 MG TAB PO SCH (09:00)
[2024-07-27] MEDS ORDERED: FAMOTIDINE 20 MG TAB PO SCH (09:00)
[2024-07-27] MEDS ORDERED: METOPROLOL TARTRATE 50 MG TAB PO SCH (09:00)
[2024-07-27] MEDS ORDERED: DAPAGLIFLOZIN PROPANEDIOL 10 MG TABLET PO SCH (09:00)
[2024-07-27] MEDS ORDERED: lisinopriL 20 MG TAB PO SCH (09:00)
[2024-07-27] MEDS: CLOPIDOGREL 75 MG TAB PO STA (09:16)
[2024-07-27] MEDS: ASPIRIN 325 MG TAB PO STA (09:16)
[2024-07-27] MEDS: lisinopriL 10 MG TAB PO SCH (09:17)
[2024-07-27] MEDS: amLODIPine 5 MG TAB PO SCH (09:17)
[2024-07-27] MEDS: ATORVASTATIN 80 MG TAB PO STA (09:17)
[2024-07-27] MEDS: ESCITALOPRAM 10 MG TAB PO SCH (10:17)
[2024-07-27] MEDS: LIDOCAINE 1% INJ 10MG/ML (30 ML VIAL-PF) SQ ONE (13:10)
--- NOTE | 2024-07-27 13:19 | P.CRDCN ---
History of Present Illness Consult date: 07/27/24 Reason for Consult (text): Acute coronary syndrome History of present illness: This is a 39-year-old female patient of Dr. Whalen with past medical history significant for CAD with stenting of the LAD, hypertension, dyslipidemia, cardiomyopathy with EF 35 to 40%, history of mediastinal tumor removed. We have been asked to evaluate the patient for ACS. Patient states that she was laying in bed and all of a sudden developed chest pain. She states she has had no chest pain since her last cardiac catheterization until now. She also has some shortness of breath and dizziness. She states the pain lasted for about 1-1/2 hours. She states she has chronic edema to her lower extremities and hands but no change. She states she had a stroke 2 months ago and also had history of seizures a long time ago. She is still smoking. She denies caffeine or alcohol use. She denies drug use. Patient denies syncopal episodes, no cough no fever. She denies any wheezing no palpitations. She is normally active and denies chest pain or shortness of breath with activity. Patient has not been taking Brilinta for greater than 1 month as she states her insurance was not covering the medication. Blood pressure 145/84, heart rate 76, pulse ox 99% on room air. Patient has been started on heparin drip. Patient is seen today in the emergency center waiting for a bed on the cardiac stepdown unit. Dr. Zepeda discussed with patient recommendations for cardiac catheterization which she is agreeable to move forward with today. -EKG: Sinus rhythm with nonspecific ST changes similar to previous EKGs. -Chest x-ray: No consolidation. -Laboratory studies: CBC normal. Troponin 0.047, 0.038 and 0.029. BUN 18 creatinine 0.71 and potassium 3.4. -Home cardiac medications: Amlodipine 5 mg daily, aspirin 81 mg daily, atorvastatin 80 mg at bedtime, lisinopril 10 mg daily. -Echocardiogram performed 03/02/2024: EF 35 to 40%, left ventricular hypert rophy. Trace pericardial effusion. -Cardiac catheterization performed 04/06/2024: Patent stents to the mid LAD and proximal OM1 and mid RCA. Normal left-sided filling pressure. -Cardiac catheterization 03/07/2024: Critical disease involving the LAD with PCI of the LAD, -Cardiac catheterization 03/29/2024: Patent stent to the LAD, critical disease involving OM1 status post successful stenting of the OM1. There was also intermediate disease involving the RCA documented to be flow-limiting by Doppler and PCI of the RCA was done. Review Of Systems: At the time of my exam: CONSTITUTIONAL: Denies fever or chills. HEENT: Denies blurred vision, vision changes, or eye pain. Denies hemoptysis CARDIOVASCULAR: Denies chest pain. Denies orthopnea. Denies PND. Denies palpitations RESPIRATORY: Denies shortness of breath. GASTROINTESTINAL: Denies abdominal pain. Denies nausea or vomiting. HEMATOLOGIC: Denies bleeding disorders. GENITOURINARY: Denies any blood in urine. SKIN: Denies puritis. Denies rash. Physical examination: Gen: This is a 39-year-old female in no acute distress VS: reviewed HEENT: Head is atraumatic, normocephalic. Pupils equal, round. Sclerae is anicteric. NECK: Supple. No JVD. LUNGS: Clear to auscultation. No wheezes or rhonchi. No intercostal retractions. HEART: Regular rate and rhythm. No murmur. ABDOMEN: Soft No tenderness. EXTREMITIES: No pedal edema. No calf tenderness. NEUROLOGICAL: Patient is awake, alert and oriented x3. Assessment: NSTEMI History of coronary artery disease with previous stenting of the LAD 02/2024, OM1 and RCA on 03/29/2024 Hypertension Dyslipidemia Cardiomyopathy with EF 35 to 40% History of mediastinal tumor Noncompliance with medication as patient has not been taking Brilinta due to insurance issue Plan: Resume patient's home cardiac medications Start patient on Plavix 300 mg today followed by 75 mg daily Schedule patient for cardiac catheterization today with Dr. Whalen Obtain 2-D echocardiogram and Doppler study to assess cardiac structure and function Further recommendations to follow based upon clinical course Thank you kindly for this consultation. Nurse practitioner note has been reviewed, I agree with documented findings and plan of care. Patient was seen and examined. 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 Unsure if she has a leaky valve. History of Any Multi-Drug Resistant Organisms: None Reported Past Surgical History: Appendectomy, Section, Cholecystectomy, Heart Catheterization With Stent Additional Past Surgical History / Comment(s): CABG, Left knee surgeries, endometrosis surgery. stent x 1 Past Anesthesia/Blood Transfusion Reactions: No Reported Reaction Date of Last Stent Placement:: 03/29/24 Past Psychological History: Anxiety, Bipolar Smoking Status: Current every day smoker Past Drug Use History: Marijuana, Methamphetamine - Past Family History Mother Additional Family Medical History / Comment(s): Grandmother had a pacemaker Father Family Medical History: Cancer Additional Family Medical History / Comment(s): colon cancer, Breast cancer runs on his side of the family. Medications and Allergies Home Medications Medication Instructions Recorded Confirmed Type Aspirin EC [Ecotrin Low Dose] 81 mg PO HS 04/11/24 07/27/24 History Atorvastatin [Lipitor] 80 mg PO HS 04/11/24 07/27/24 History amLODIPine [Norvasc] 5 mg PO DAILY #30 tab 04/17/24 07/27/24 Rx Escitalopram [Lexapro] 10 mg PO DAILY 07/27/24 07/27/24 History lisinopriL [Zestril] 10 mg PO DAILY 07/27/24 07/27/24 History Allergies Allergy/AdvReac Type Severity Reaction Status Date / Time pregabalin [From Lyrica] AdvReac CHEST Verified 07/27/24 07:57 TIGHTENING EXCEDRIN AdvReac CHEST Uncoded 07/26/24 22:55 TIGHTENING Physical Exam Vitals: Vital Signs Temp Pulse Resp BP Pulse Ox 07/27/24 05:45 97.8 F 77 14 145/84 99 07/27/24 03:42 78 18 139/81 96 07/27/24 03:00 73 143/86 98 07/27/24 02:00 68 147/83 97 07/27/24 01:00 79 134/80 97 07/27/24 00:41 75 139/83 99 07/27/24 00:29 77 18 140/84 98 07/26/24 22:46 98.0 F 89 20 150/88 97 Intake and Output 07/26/24 07/27/24 07/27/24 22:59 06:59 14:59 Other: Weight 63.503 kg Results 07/26/24 22:51 07/26/24 22:51 Cardiac Enzymes 07/26/24 07/26/24 07/27/24 Range/Units 22:51 22:51 06:44 AST 24 (14-36) U/L Troponin I 0.047 H* 0.038 H* (0.000-0.034) ng/mL Coagulation 07/26/24 07/27/24 Range/Units 22:51 06:44 PT 10.2 (10.0-12.5) sec APTT 22.1 22.2 (22.0-30.0) sec CBC 07/26/24 Range/Units 22:51 WBC 7.50 (4.50-10.00) 10*3/uL RBC 4.43 (4.10-5.20) 10*6/uL Hgb 12.8 (12.0-15.0) g/dL Hct 39.0 (37.2-46.3) % Plt Count 249 (140-440) 10*3/uL Comprehensive Metabolic Panel 07/26/24 Range/Units 22:51 Sodium 137 (137-145) mmol/L Potassium 3.4 L (3.5-5.1) mmol/L Chloride 105 (98-107) mmol/L Carbon Dioxide 24 (22-30) mmol/L BUN 18 H (7-17) mg/dL Creatinine 0.71 (0.52-1.04) mg/dL Glucose 80 (74-99) mg/dL Calcium 8.9 (8.4-10.2) mg/dL AST 24 (14-36) U/L ALT 26 (4-34) U/L Alkaline Phosphatase 78 (38-126) U/L Total Protein 6.3 (6.3-8.2) g/dL Albumin 3.6 (3.5-5.0) g/dL Current Medications Generic Name Dose Route Start Last Admin Trade Name Freq PRN Reason Stop Dose Admin Amlodipine Besylate 5 mg 07/27/24 09:00 Amlodipine 5 Mg Tab PO DAILY [facility] Aspirin 81 mg 07/28/24 09:00 Aspirin 81 Mg PO DAILY [facility] Atorvastatin Calcium 80 mg 07/27/24 21:00 Atorvastatin 80 Mg Tab PO HS [facility] Escitalopram Oxalate 10 mg 07/27/24 09:00 Escitalopram 10 Mg Tab PO DAILY [facility] Heparin Sodium (Porcine) 0 unit 07/27/24 00:21 Heparin Sodium 1,000 Un/Ml (10ml Vl) IV PER PROTOCOL PRN Low PTT Protocol Heparin Sodium/Sodium Chloride 250 mls @ 7.62 mls/hr 07/27/24 00:30 07/27/24 07:30 25,000 unit/ Sodium Chloride IV Not Given .Q24H SANDY Protocol 12 UNITS/KG/HR Lisinopril 10 mg 07/27/24 09:00 Lisinopril 10 Mg Tab PO DAILY SANDY Nitroglycerin 0.4 mg 07/27/24 04:46 Nitroglycerin Sl Tabs 0.4 Mg Tab SUBLINGUAL Q5M PRN Chest Pain Intake and Output 07/26/24 07/27/24 07/27/24 22:59 06:59 14:59 Other: Weight 63.503 kg 07/26/24 22:51 07/26/24 22:51
[2024-07-27] MEDS: HYDROmorphone 0.5 MG/0.5 ML SYRINGE IVP ONE ×4 (13:24→13:25)
[2024-07-27] MEDS: MIDAZOLAM 2 MG/2 ML VIAL IVP ONE (13:24)
[2024-07-27] MEDS: IV FLUID CONTINUATION 1,000 ML IV ONE (13:26)
[2024-07-27] MEDS: IOPAMIDOL-300 100ML BTL INJ ONE (13:29)
[2024-07-27] MEDS ORDERED: RX INFO: IV CONTRAST WAS GIVEN 1 EACH MISC MISCELLANE PRN (13:46)
--- NOTE | 2024-07-27 13:47 | P.PCN ---
Date of Procedure: 07/27/24 Operative Findings: CARDIAC CATHETERIZATION PERFORMING PHYSICIAN: Mk Whalen MD, RPVI PROCEDURE PERFORMED: 1. Selective right and left coronary angiogram 2. Left heart catheterization 3. Ultrasound-guided access of the right common femoral artery and ultrasound guided access of the right radial artery and selective right common femoral artery angio INDICATION: Acute non-ST ovation myocardial infarction COMPLICATION: None APPROACH: Right common femoral artery LEVEL OF SEDATION: Moderate with sedation in length of 20 minutes PROCEDURE DESCRIPTION: After obtaining an informed consent, the patient was brought to cardiac labor operator. Local anesthesia was performed using lidocaine subcutaneously. And initially I accessed the right radial artery and a place 6 Lithuanian 11 cm sheath but the patient was in excruciating pain and we have to pull the sheath out and put TR band. After that we decided to go from the right common femoral artery. The right common femoral artery was cannulated using Seldinger technique, the guidewire passed easily, following that we advanced a 6 Lithuanian sheath dilator assembly, the wire and dilator were removed and sheath was flushed. Selective right and left coronary angiogram using a 6-Lithuanian JR4 and JL catheters. Following that we did left heart catheterization using 6-Lithuanian pigtail catheter. The procedure was completed there was no complication. SELECTIVE CORONARY ANGIOGRAM: The right coronary artery: Large-caliber vessel and a dominant vessel with patent stent in the midportion Left main: Is angiographically The left circumflex: Large-caliber vessel nondominant vessel with no evidence of high-grade stenosis The left anterior descending artery: Large-caliber vessel with patent stent in the midportion no evidence of high- grade stenosis HEMODYNAMICS: The LVEDP was about 18 mmHg with no significant gradient across aortic valve CONCLUSION: 1. Patent stent in the mid RCA with intermediate disease involving the PLV branch which is small caliber 2. Patent stent in the mid LAD 3. Mildly elevated left-sided filling pressure POSTPROCEDURE MANAGEMENT: Medical treatment
--- NOTE | 2024-07-27 14:20 | P.HPIM ---
History of Present Illness H&P Date: 07/27/24 History of present illness; Patient is a 39-year-old female with history of CAD with previous stenting of LAD on 02/2024, OM1 and RCA on 03/29/2021 and CABG 19 years ago who presents with chest pain. Patient states pain began last night at 9 PM and was located in the left chest and radiated to right shoulder. Patient was lying in bed resting when symptoms first began. Pain lasted for several hours. She took nitroglycerin which she states was slow to work. She did have some associated sweating and shortness of breath. Pain not worse with deep breathing. She had received TNKase last month and reportedly had some bleeding in the brain at [facility]. Today her pain is improved. Patient reports absence of fever, chills, palpitations, cough, abdominal pain, nausea, vomiting, constipation, diarrhea, weakness, myalgia, dizziness, headache, and dysuria. Spoke with the ER physician, patient admission was accepted by internal medicine service for treatment. REVIEW OF SYSTEMS: Pertinent positives and negatives noted in HPI. PHYSICAL EXAMINATION: Vitals reviewed GENERAL: Resting comfortably in bed. EYES: PERRL, no scleral injection or icterus. No gross vision loss. HENT: Normocephalic, atraumatic, hearing grossly intact, moist mucous membranes NECK: No tracheal deviation, full range of motion. CARDIOVASCULAR: S1 and S2 present. No murmurs, rubs, or gallops. PULMONARY: Chest is clear to auscultation, no wheezing, rhonchi, or crackles. ABDOMEN: Soft, nontender, nondistended. No palpable organomegaly. MUSCULOSKELETAL: No apparent joint swelling and deformities. EXTREMITIES: No apparent cyanosis, clubbing. No pedal edema. NEUROLOGICAL: Alert and oriented. Gross neurological examination with no apparent focal deficits. SKIN: No apparent rashes. ER FINDINGS: Labs significant for potassium 3.4, BUN 18, troponin 0.047 => 0.038 EKG independently interpreted showed sinus rhythm heart rate of 89, QTc 410, no ST segment elevation or depression seen, T wave abnormality in leads II and aVF similar to previous EKG Chest x-ray done independently interpreted showed no acute cardiopulmonary process. Assessment and Plan: In summary, Patient is a 39-year-old female with history of CAD with previous stenting of LAD on 02/2024, OM1 and RCA on 03/29/2021 and CABG 19 years ago who presents with chest pain. 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 E: Replete as needed N: Heart healthy diet A: Ambulatory Anticipated discharge place: Home Anticipated discharge time: [address] Merlos seen patient with resident, present during exam, and agreed with findings. Dictation was produced using [email or web address] dictation software. Please excuse any grammatical, word or spelling errors. 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 Unsure if she has a leaky valve. History of Any Multi-Drug Resistant Organisms: None Reported Past Surgical History: Appendectomy, Section, Cholecystectomy, Heart Catheterization With Stent Additional Past Surgical History / Comment(s): CABG, Left knee surgeries, endometrosis surgery. stent x 1 Past Anesthesia/Blood Transfusion Reactions: No Reported Reaction Date of Last Stent Placement:: 03/29/24 Past Psychological History: Anxiety, Bipolar Smoking Status: Current every day smoker Past Drug Use History: Marijuana, Methamphetamine - Past Family History Mother Additional Family Medical History / Comment(s): Grandmother had a pacemaker Father Family Medical History: Cancer Additional Family Medical History / Comment(s): colon cancer, Breast cancer runs on his side of the family. Medications and Allergies Home Medications Medication Instructions Recorded Confirmed Type Aspirin EC [Ecotrin Low Dose] 81 mg PO HS 04/11/24 07/27/24 History Atorvastatin [Lipitor] 80 mg PO HS 04/11/24 07/27/24 History amLODIPine [Norvasc] 5 mg PO DAILY #30 tab 04/17/24 07/27/24 Rx Escitalopram [Lexapro] 10 mg PO DAILY 07/27/24 07/27/24 History lisinopriL [Zestril] 10 mg PO DAILY 07/27/24 07/27/24 History Allergies Allergy/AdvReac Type Severity Reaction Status Date / Time pregabalin [From Lyrica] AdvReac CHEST Verified 07/27/24 07:57 TIGHTENING EXCEDRIN AdvReac CHEST Uncoded 07/26/24 22:55 TIGHTENING Physical Exam Vitals: Vital Signs Temp Pulse Resp BP Pulse Ox 07/27/24 05:45 97.8 F 77 14 145/84 99 07/27/24 03:42 78 18 139/81 96 07/27/24 03:00 73 143/86 98 07/27/24 02:00 68 147/83 97 07/27/24 01:00 79 134/80 97 07/27/24 00:41 75 139/83 99 07/27/24 00:29 77 18 140/84 98 07/26/24 22:46 98.0 F 89 20 150/88 97 Intake and Output 07/26/24 07/27/24 07/27/24 22:59 06:59 14:59 Other: Weight 63.503 kg Results CBC & Chem 7: 07/26/24 22:51 07/26/24 22:51 Labs: Abnormal Lab Results - Last 24 Hours (Table) 07/26/24 07/26/24 07/27/24 Range/Units 22:51 22:51 06:44 Potassium 3.4 L (3.5-5.1) mmol/L BUN 18 H (7-17) mg/dL Troponin I 0.047 H* 0.038 H* (0.000-0.034) ng/mL
[2024-07-27] MEDS: SODIUM CHLORIDE 0.9% 1,000 ML IV SCH (14:22)
[2024-07-27] MEDS: POTASSIUM CHLORIDE ER 20 MEQ TAB.ER PO STA (16:14)
[2024-07-27] MEDS: KETOROLAC 15 MG/ML 1 ML VIAL IVP STA (20:45)
[2024-07-27] MEDS ORDERED: ATORVASTATIN 80 MG TAB PO SCH (21:00)
[2024-07-27] MEDS ORDERED: ATORVASTATIN 40 MG TAB PO SCH (21:00)
[2024-07-27] MEDS ORDERED: ESCITALOPRAM 5 MG TAB PO SCH ×2 (21:00)
[2024-07-28] MEDS: ACETAMINOPHEN TAB 325 MG TAB PO PRN (04:03)
[2024-07-28 06:42] LABS: Basophils # (A) 0.02 10*3/uL (0.00-0.10); Basophils % (A) 0.4 %; Eosinophils # (A) 0.19 10*3/uL (0.04-0.35); Eosinophils % (A) 4.2 %; HCT 40.5 % (37.2-46.3); HGB 13.1 g/dL (12.0-15.0); Lymphocytes # (A) 1.51 10*3/uL (0.90-5.00); Lymphocytes % (A) 33.2 %; MCH 28.5 pg (27.0-32.0); MCHC 32.3 g/dL (32.0-37.0); MCV 88.2 fL (80.0-97.0); Mean Platelet Volume 11.3 fL (9.5-12.2); Monocytes # (A) 0.34 10*3/uL (0.20-1.00); Monocytes % (A) 7.5 %; Neutrophils # (A) 2.48 10*3/uL (1.80-7.70); Neutrophils % (A) 54.5 %; Platelet Count 241 10*3/uL (140-440); RBC 4.59 10*6/uL (4.10-5.20); RDW 12.7 % (11.5-14.5); WBC 4.55 10*3/uL (4.50-10.00)
[2024-07-28 06:56] LABS: Prothrombin Time 10.8 sec (10.0-12.5)
[2024-07-28] MEDS ORDERED: HEPARIN SODIUM,PORCINE 10,000 UNIT in SODIUM CHLORIDE 0.9% 1,000 ML IRRIGATION PRN (07:00)
[2024-07-28] MEDS ORDERED: HEPARIN SODIUM,PORCINE (1 ML) 2,500 UNIT in SODIUM CHLORIDE 0.9% 250 ML IRRIGATION PRN (07:00)
[2024-07-28 07:08] LABS: African American GFR (CKD) >90 (>60 ml/min/1.73 sqM); Anion Gap 3 mmol/L; Blood Urea Nitrogen 16 mg/dL (7-17); Calcium 8.7 mg/dL (8.4-10.2); Carbon Dioxide 27 mmol/L (22-30); Chloride 105 mmol/L (98-107); Glucose 82 mg/dL (74-99); Non-African American GFR(CKD) >90 (>60 ml/min/1.73 sqM); Sodium 135 mmol/L (137-145)
[2024-07-28 08:35] VITALS: BP 154/92; PULSE 76; RESP 16; TEMP 97.4
[2024-07-28] MEDS: CLOPIDOGREL 75 MG TAB PO SCH (08:35)
[2024-07-28] MEDS: ENOXAPARIN 40 MG/0.4 ML SYRINGE SQ SCH (08:36)
[2024-07-28] MEDS ORDERED: ASPIRIN 81 MG PO SCH ×2 (09:00→21:00)
--- NOTE | 2024-07-28 12:04 | P.DS ---
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 Patient states pain began last night at 9 PM and was located in the left chest and radiated to right shoulder. Patient was lying in bed resting when symptoms first began. Pain lasted for several hours. She took nitroglycerin which she states was slow to work. She did have some associated sweating and shortness of breath. Pain not worse with deep breathing. She had received TNKase last month and reportedly had some bleeding in the brain at [facility]. Today her pain is improved. Patient reports absence of fever, chills, palpitations, cough, abdominal pain, nausea, vomiting, constipation, diarrhea, weakness, myalgia, dizziness, headache, and dysuria. Cardiac catheter completed with findings of patent stent in mid RCA, patent stent in mid LAD, mildly elevated left-sided filling pressures. Cardiology recommending medical therapy. Patient discharged in stable condition. Patient to continue Plavix daily. Follow-up with PCP and cardiology. PHYSICAL EXAMINATION: Vitals reviewed GENERAL: Resting comfortably in bed. EYES: PERRL, no scleral injection or icterus. No gross vision loss. HENT: Normocephalic, atraumatic, hearing grossly intact, moist mucous membranes NECK: No tracheal deviation, full range of motion. CARDIOVASCULAR: S1 and S2 present. No murmurs, rubs, or gallops. PULMONARY: Chest is clear to auscultation, no wheezing, rhonchi, or crackles. ABDOMEN: Soft, nontender, nondistended. No palpable organomegaly. EXTREMITIES: No apparent cyanosis, clubbing. No pedal edema. NEUROLOGICAL: Alert and oriented. Gross neurological examination with no apparent focal deficits. Dr. Merlos seen patient with resident, present during exam, and agreed with findings. Dictation was produced using [employer] dictation software. please excuse any grammatical, word or spelling errors. Patient Condition at Discharge: Serious Plan - Discharge Summary Discharge Rx Participant: No New Discharge Prescriptions: New Clopidogrel [Plavix] 75 mg PO DAILY #30 tab Continue Atorvastatin [Lipitor] 80 mg PO HS Aspirin EC [Ecotrin Low Dose] 81 mg PO HS amLODIPine [Norvasc] 5 mg PO DAILY #30 tab lisinopriL [Zestril] 10 mg PO DAILY Escitalopram [Lexapro] 10 mg PO DAILY Discharge Medication List Aspirin EC [Ecotrin Low Dose] 81 mg PO HS 04/11/24 [History] Atorvastatin [Lipitor] 80 mg PO HS 04/11/24 [History] amLODIPine [Norvasc] 5 mg PO DAILY #30 tab 04/17/24 [Rx] Escitalopram [Lexapro] 10 mg PO DAILY 07/27/24 [History] lisinopriL [Zestril] 10 mg PO DAILY 07/27/24 [History] Clopidogrel [Plavix] 75 mg PO DAILY #30 tab 07/28/24 [Rx] Follow up Appointment(s)/Referral(s): Mk Whalen MD [STAFF PHYSICIAN] - 1 Week Naif Younger MD [Primary Care Provider] - 1-2 days Patient Instructions/Handouts: Acute Coronary Syndrome (DC), After Radial Heart Catheterization (GEN) Activity/Diet/Wound Care/Special Instructions: CARDIAC CATH Support your puncture site by applying firm, steady pressure whenever you cough, laugh, sneeze or bear down to have a bowel movement (2-day restriction). Watch for any excessive bruising, active bleeding, a firm knot forming under your skin, extreme tenderness and signs of infection (redness, swelling, fever). Shower daily, do not soak puncture in a tub bath, jacuzzi, pool, atwood etc. for 1 week. This is to prevent risk of infection. Take all medications as directed. Never stop any new medication without your physicians OK. No driving for 2 days after procedure. 5- pound weight lifting restriction for 1 week. Low sodium/low fat diet. Activity limited until follow up appointment with your television station manager. In case of any problems, please call [facility], Alayna Lara @ [phone] Healthy [employer] It is important to keep a heart healthy lifestyle. This can improve your long- term health and decrease your risk for heart attacks. -Managing your blood cholesterol, blood pressure, weight, and stress. -The importance of regular exercise. -Heart Healthy Diet: Include more plants in your diet. Eat lots of fresh vegetables and fresh fruits. Eat good fats: plant based oils, avocado, nuts, beans, legumes. Eat more seafood. Limit Meat. Switch to whole grains. -Avoid fried foods and animal fats and processed meats Discharge Disposition: HOME SELF-CARE
--- NOTE | 2024-07-28 13:44 | P.PN ---
Subjective HISTORY OF PRESENT ILLNESS: This is a 39-year-old female patient of Dr. Whalen with past medical history significant for CAD with stenting of the LAD, hypertension, dyslipidemia, cardiomyopathy with EF 35 to 40%, history of mediastinal tumor removed. We have been asked to evaluate the patient for ACS. Patient states that she was laying in bed and all of a sudden developed chest pain. She states she has had no chest pain since her last cardiac catheterization until now. She also has some shortness of breath and dizziness. She states the pain lasted for about 1-1/2 hours. She states she has chronic edema to her lower extremities and hands but no change. She states she had a stroke 2 months ago and also had history of seizures a long time ago. She is still smoking. She denies caffeine or alcohol use. She denies drug use. Patient denies syncopal episodes, no cough no fever. She denies any wheezing no palpitations. She is normally active and denies chest pain or shortness of breath with activity. Patient has not been taking Brilinta for greater than 1 month as she states her insurance was not covering the medication. Blood pressure 145/84, heart rate 76, pulse ox 99% on room air. Patient has been started on heparin drip. Patient is seen today in the emergency center waiting for a bed on the cardiac stepdown unit. Dr. Zepeda discussed with patient recommendations for cardiac catheterization which she is agreeable to move forward with today. -EKG: Sinus rhythm with nonspecific ST changes similar to previous EKGs. -Chest x-ray: No consolidation. -Laboratory studies: CBC normal. Troponin 0.047, 0.038 and 0.029. BUN 18 creatinine 0.71 and potassium 3.4. -Home cardiac medications: Amlodipine 5 mg daily, aspirin 81 mg daily, atorvastatin 80 mg at bedtime, lisinopril 10 mg daily. -Echocardiogram performed 03/02/2024: EF 35 to 40%, left ventricular hypertrophy. Trace pericardial effusion. -Cardiac catheterization performed 04/06/2024: Patent stents to the mid LAD and proximal OM1 and mid RCA. Normal left-sided filling pressure. -Cardiac catheterization 03/07/2024: Critical disease involving the LAD with PCI of the LAD, -Cardiac catheterization 03/29/2024: Patent stent to the LAD, critical disease involving OM1 status post successful stenting of the OM1. There was also intermediate disease involving the RCA documented to be flow-limiting by Doppler and PCI of the RCA was done. 07/28/2024 Patient is status post cardiac catheterization yesterday with Dr. Whalen revealing patent stent in the mid RCA with intermediate disease involving the PLV branch which is small caliber. Patent stent in the mid LAD. Mildly elevated left- sided filling pressures. Medical management was recommended. Patient examined this morning the bedside. Patient currently denies chest pain or pressure. She denies shortness of breath. Vital signs are stable. Femoral cath site with pulse present and no hematoma noted. PHYSICAL EXAM: VITAL SIGNS: Reviewed. GENERAL: Well-developed in no acute distress. NECK: Supple. No JVD or thyromegaly LUNGS: Respirations even and unlabored. Lungs essentially clear to auscultation bilaterally. HEART: Regular rate and rhythm. S1 and S2 heard. EXTREMITIES: Normal range of motion. No clubbing or cyanosis. Peripheral pulses intact. No lower extremity edema ASSESSMENT: NSTEMI History of coronary artery disease with previous stenting of the LAD 02/2024, OM1 and RCA on 03/29/2024 Hypertension Dyslipidemia Cardiomyopathy with EF 35 to 40% History of mediastinal tumor Noncompliance with medication as patient has not been taking Brilinta due to insurance issue PLAN: Continue current cardiac medications including Plavix, Lipitor, aspirin, amlodipine, and lisinopril Patient is stable for discharge home today from a cardiac standpoint Patient to follow-up postdischarge in the office with Dr. Whalen Nurse practitioner note has been reviewed by physician. Signing provider agrees with the documented findings, assessment, and plan of care documented by AERIAL PHOTOGRAPHER as a scribe. Objective - Vital Signs Vital signs: Vital Signs Temp 97.4 F L 07/28/24 08:33 Pulse 76 07/28/24 08:33 Resp 16 07/28/24 08:33 BP 154/92 07/28/24 08:33 Pulse Ox 98 07/28/24 08:33 FiO2 Intake & Output 07/27/24 07/28/24 07/28/24 18:59 06:59 18:59 Intake Total 300 260 250 Balance 300 260 250 Weight 63.503 kg 61.1 kg Intake: IV 300 20 10 Invasive Line 1 20 10 Oral 240 240 Other: Voiding Method Toilet Toilet # Voids 1 - Labs CBC & Chem 7: 07/28/24 06:00 07/28/24 06:00 Labs: Abnormal Lab Results - Last 24 Hours (Table) 07/28/24 Range/Units 06:00 Sodium 135 L (137-145) mmol/L
[2024-07-28 13:46] LABS: LDL Cholesterol,Calculated 67.7 mg/dL (0.0-131.0); VLDL Calculation 12.68 mg/dL (5.00-40.00)
[2024-07-28] MEDS ORDERED: ATORVASTATIN 80 MG TAB PO SCH (21:00)
== END 2024-07-28 12:00 | disposition home or self-care (01) | DRG 281 ==
LOC: EC 22:44 → 3SCARD 07-27 04:48
PROVIDERS: ADMIT Hospitalist; ATTEND Hospitalist
PROC: B2111ZZ Fluoroscopy of Multiple Coronary Arteries using Low Osmolar Contrast (ICD-10-PCS; principal; 2024-07-27 11:40)
PROC: 4A023N7 Measurement of Cardiac Sampling and Pressure, Left Heart, Percutaneous Approach (ICD-10-PCS; principal; 2024-07-27 11:40)
DX: I21.4 Non-ST elevation (NSTEMI) myocardial infarction (principal); I42.9 Cardiomyopathy, unspecified; Z95.1 Presence of aortocoronary bypass graft; M32.9 Systemic lupus erythematosus, unspecified; F31.9 Bipolar disorder, unspecified; J45.909 Unspecified asthma, uncomplicated; I10 Essential (primary) hypertension; I25.10 Atherosclerotic heart disease of native coronary artery without angina pectoris; F41.9 Anxiety disorder, unspecified; T45.526A Underdosing of antithrombotic drugs, initial encounter; E78.5 Hyperlipidemia, unspecified; F17.200 Nicotine dependence, unspecified, uncomplicated; Z95.5 Presence of coronary angioplasty implant and graft; Z91.141 Patient's other noncompliance with medication regimen due to financial hardship; Z28.310 Unvaccinated for COVID-19; Z86.73 Personal history of transient ischemic attack (TIA), and cerebral infarction without residual deficits; Z79.82 Long term (current) use of aspirin; Z79.899 Other long term (current) drug therapy; Z87.898 Personal history of other specified conditions; Z86.69 Personal history of other diseases of the nervous system and sense organs
CPT/HCPCS: 36415; 71046; 80048; 80053; 80061; 83735; 84484; 85025; 85610; 85730; 93005; 93458; 99291